=== PATIENT | male | born 1940 | race Caucasian/White ===

== ENCOUNTER 2016-08-26 12:07 | Emergency (ER) | payer MEDICARE, MEDICAID ==
[2016-08-26 12:27] VITALS: BP 143/73
--- NOTE | 2016-08-26 12:38 | EDM.PDOC ---
ED HPI LOWER BACK PAIN/INJURY - General Chief Complaint: Back Pain or Injury Stated Complaint: BACK PAIN Time Seen by Provider: 08/26/16 12:33 Source of Information: Reports: Patient, Other (care provider( [facility]) History Limitations: Reports: No limitations - History of Present Illness INITIAL COMMENTS - FREE TEXT/NARRATIVE: 76-year-old male who currently is a resident at one of the able [facility] in [place] is back to the hospital because of complaints of persistent low back pain since last evening no noted falls although he has an abrasion that is at least 10 days old on his lower back. Pain seems to be worse with standing and walking. He could have fallen which may not have been witnessed. No history of renal colic. History is difficult to obtain of course because he is mentally handicapped. He reports that he is in pain even lying still in bed. Therefore the question of renal colic exists. Her pain seems to be much worse with trying to sit up or move suggesting a muscular skeletal source. Symptom Onset Date: 08/25/16 Symptom Onset Time: 18:00 Timing/Duration: Reports: Sudden onset Location: Reports: lower Quality: Reports: Ache, Throbbing, Other Severity: moderate (Constant pain) Place of Occurrence: home Improves with: Reports: Rest, Other (Tylenol seemed to help a little bit last night and again this morning) Worsens with: Reports: Other, Movement (Can hardly stand for any significant length of time due to increased pain.) Context: Denies: lifting, bending, fall, MVC, trauma, chronic pain/injury, sports injury, other Associated Symptoms: Reports: Difficulty walking, Problems urinating (Has chronic urinary frequency and occasional urinary tract infections.) Treatments [employer]: Reports: Acetaminophen - Related Data Allergies/ADRs: Allergies Allergy/AdvReac Type Severity Reaction Status Date / Time No Known Allergies Allergy Verified 08/26/16 12:31 Home Meds: Home Meds Aspirin 325 mg PO DAILY 04/05/16 [History] Cholecalciferol (Vitamin D3) [Vitamin D3] 2 tab PO DAILY 04/05/16 [History] Donepezil [Aricept] 10 mg PO BEDTIME 04/05/16 [History] Famotidine 20 mg PO DAILY 04/05/16 [History] Fluticasone/Sod Chl/Sod Bicarb [Ticanase Kit] 1 spray NASBOTH BID 04/05/16 [ History] LORazepam [Ativan] 0.5 mg PO Q6H #15 tablet 04/05/16 [Rx] Lactase 3,000 unit PO BID 04/05/16 [History] Memantine HCl [Namenda Xr] 21 mg PO DAILY 04/05/16 [History] Multivit-Min/FA/Lycopene/Lut [Certavite Sr-Antioxidant Tab] 1 tab PO DAILY 04/05 [History] Simvastatin [Zocor] 10 mg PO BEDTIME 04/05/16 [History] SitaGLIPtin [Januvia] 50 mg PO DAILY 04/05/16 [History] Solifenacin Succinate [Vesicare] 10 mg PO DAILY 04/05/16 [History] Venlafaxine HCl [Venlafaxine ER] 75 mg PO DAILY 04/05/16 [History] Venlafaxine HCl [Venlafaxine ER] 150 mg PO DAILY 04/05/16 [History] risperiDONE 2 mg PO BID 04/05/16 [History] Meloxicam 15 mg PO DAILY #14 tablet 08/26/16 [Rx] Polyethylene Glycol 3350 [MiraLAX] 17 gm PO DAILY #1 container 08/26/16 [Rx] oxyCODONE HCl/Acetaminophen [Percocet 5-325 mg Tablet] 1 - 2 each PO Q4H PRN # 30 tablet 08/26/16 [Rx] Past Medical History Cardiovascular History: Reports: [place], Other (see below) Other Cardiovascular History: Low cardiac output, [place] 2004 Genitourinary History: Reports: Urinary incontinence Neurological History: Reports: Head trauma Other Neuro History: Head injury as a child Psychiatric History: Reports: Dementia, Psychosis Endocrine/Metabolic History: Reports: Diabetes, type II - Past Surgical History Cardiovascular Surgical History: Reports: Coronary artery bypass Other Cardiovascular Surgeries/Procedures: triple bypass 2003 Social & Family History - Tobacco Use Smoking Status *Q: Former Smoker Years of Tobacco use: 30 Packs/Tins Daily: 1 Used Tobacco, but Quit: Yes Month Tobacco Last Used: 4 years - Recreational Drug Use Recreational Drug Use: No - Living Situation & Occupation Occupation: disabled Social History Comment: Lives in a alf at able. ED ROS GENERAL - Review of Systems Review Of Systems: See Below Constitutional: Reports: no symptoms HEENT: Reports: No symptoms Respiratory: Reports: No Symptoms Cardiovascular: Reports: No symptoms Endocrine: Reports: no symptoms GI/Abdominal: Reports: Abdominal pain (Occasional problems with constipation but he had a normal bowel movement this morning) : Reports: frequency, other (Nocturia x3.) Musculoskeletal: Reports: back pain Skin: Reports: no symptoms (See history of present illness) Neurological: Reports: No Symptoms ED EXAM,LOWER BACK PAIN/INJURY - Physical Exam Exam: See Below Exam Limited By: No limitations General Appearance: alert, WD/WN, mild distress (Seems to be in quite a bit of discomfort and even hard to lie still suggestive of possible renal colic.) Throat/Mouth: Normal inspection, Normal lips, Normal oropharynx Head: atraumatic, other Neck: normal inspection, supple, non-tender, full range of motion Respiratory/Chest: no respiratory distress, lungs clear, normal breath sounds, no accessory muscle use Cardiovascular: normal peripheral pulses, regular rate, rhythm, no edema, no murmur GI/Abdominal: normal bowel sounds, soft, non tender, no organomegaly, no distention (Male) Exam: No hernia Extremities: normal inspection, normal range of motion, normal capillary refill Neurological: alert, normal mood/affect, normal dorsiflexion, CN II-XII intact, normal plantar flexion Psychiatric: normal affect, normal mood Skin Exam: Warm, Dry, Intact, Normal color, No rash Course - Vital Signs Last Recorded V/S: Last Vital Signs Temp 36.4 C 08/26/16 12:25 Pulse 65 08/26/16 12:25 Resp 24 H 08/26/16 12:25 BP 143/73 H 08/26/16 12:25 Pulse Ox 99 08/26/16 12:25 - Orders/Labs/Meds Orders: Active Orders 24 hr Category Date Time Status Abdomen Pelvis wo Cont [CT] Stat Exams 08/26/16 12:34 Taken Lumbar Spine wo Cont [CT] Stat Exams 08/26/16 12:34 Taken Labs: Laboratory Tests 08/26/16 08/26/16 08/26/16 Range/Units 13:55 14:00 14:00 WBC 7.27 (4.23-9.07) K/mm3 RBC 4.33 L (4.63-6.08) M/mm3 Hgb 14.5 (13.7-17.5) gm/L Hct 43.4 (40.1-51.0) % MCV 100.2 H (79.0-92.2) fl MCH 33.5 H (25.7-32.2) pg MCHC 33.4 (32.2-35.5) g/dl RDW Std Deviation 50.6 H (35.1-43.9) fL Plt Count 169 (163-337) K/mm3 MPV 11.4 (9.4-12.3) fl Neutrophils % (Manual) 78 H (40-60) % Band Neutrophils % 1 (0-10) % Lymphocytes % (Manual) 12 L (20-40) % Atypical Lymphs % 0 % Monocytes % (Manual) 7 (2-10) % Eosinophils % (Manual) 2 (0.8-7.0) % Basophils % (Manual) 0 L (0.2-1.2) Platelet Estimate Adequate Poikilocytosis 1+ slight Anisocytosis 1+ slight Macrocytosis 1+ slight Ovalocytes 1+ slight RBC Morph Comment Not Reportable ESR 11 (0-15) mm/hr Sodium (136-145) mEq/L Potassium (3.5-5.1) mEq/L Chloride (98-107) mEq/L Carbon Dioxide (21-32) mEq/L Anion Gap (5-15) BUN (7-18) mg/dL Creatinine (0.7-1.3) mg/dL Est Cr Clr Drug Dosing mL/min Estimated GFR (MDRD) (>60) mL/min BUN/Creatinine Ratio (14-18) Glucose (83-115) mg/dL Calcium (8.5-10.1) mg/dL Total Bilirubin (0.2-1.0) mg/dL AST (15-37) U/L ALT (16-63) U/L Alkaline Phosphatase (46-116) U/L C-Reactive Protein (<1.0) mg/dL Total Protein (6.4-8.2) g/dl Albumin (3.4-5.0) g/dl Globulin gm/dL Albumin/Globulin Ratio (1-2) PSA Screen (0.0-4.0) ng/mL Urine Color Yellow (Yellow) Urine Appearance Clear (Clear) Urine pH 7.0 (5.0-8.0) Ur Specific [place] 1.025 (1.005-1.030) Urine Protein Negative (Negative) Urine Glucose (UA) Negative (Negative) Urine Ketones 1+ H (Negative) Urine Occult Blood Negative (Negative) Urine Nitrite Negative (Negative) Urine Bilirubin Negative (Negative) Urine Urobilinogen 0.2 (0.2-1.0) Ur Leukocyte Esterase Negative (Negative) Urine RBC Not seen (0-5) /hpf Urine WBC 0-5 (0-5) /hpf Ur Epithelial Cells Not seen (0-5) /hpf Urine Bacteria Not seen (FEW) /hpf Urine Mucus Not seen (FEW) /hpf 08/26/16 08/26/16 Range/Units 14:00 14:00 WBC (4.23-9.07) K/mm3 RBC (4.63-6.08) M/mm3 Hgb (13.7-17.5) gm/L Hct (40.1-51.0) % MCV (79.0-92.2) fl MCH (25.7-32.2) pg MCHC (32.2-35.5) g/dl RDW Std Deviation (35.1-43.9) fL Plt Count (163-337) K/mm3 MPV (9.4-12.3) fl Neutrophils % (Manual) (40-60) % Band Neutrophils % (0-10) % Lymphocytes % (Manual) (20-40) % Atypical Lymphs % % Monocytes % (Manual) (2-10) % Eosinophils % (Manual) (0.8-7.0) % Basophils % (Manual) (0.2-1.2) Platelet Estimate Poikilocytosis Anisocytosis Macrocytosis Ovalocytes RBC Morph Comment ESR (0-15) mm/hr Sodium 137 (136-145) mEq/L Potassium 5.6 H (3.5-5.1) mEq/L Chloride 102 (98-107) mEq/L Carbon Dioxide 27 (21-32) mEq/L Anion Gap 13.6 (5-15) BUN 20 H (7-18) mg/dL Creatinine 1.2 (0.7-1.3) mg/dL Est Cr Clr Drug Dosing 44.84 mL/min Estimated GFR (MDRD) 59 (>60) mL/min BUN/Creatinine Ratio 16.7 (14-18) Glucose 120 H (83-115) mg/dL Calcium 8.9 (8.5-10.1) mg/dL Total Bilirubin 0.3 (0.2-1.0) mg/dL AST 22 (15-37) U/L ALT 30 (16-63) U/L Alkaline Phosphatase 82 (46-116) U/L C-Reactive Protein < 0.2 (<1.0) mg/dL Total Protein 6.6 (6.4-8.2) g/dl Albumin 3.3 L (3.4-5.0) g/dl Globulin 3.3 gm/dL Albumin/Globulin Ratio 1.0 (1-2) PSA Screen 4.7 H (0.0-4.0) ng/mL Urine Color (Yellow) Urine Appearance (Clear) Urine pH (5.0-8.0) Ur Specific [place] (1.005-1.030) Urine Protein (Negative) Urine Glucose (UA) (Negative) Urine Ketones (Negative) Urine Occult Blood (Negative) Urine Nitrite (Negative) Urine Bilirubin (Negative) Urine Urobilinogen (0.2-1.0) Ur Leukocyte Esterase (Negative) Urine RBC (0-5) /hpf Urine WBC (0-5) /hpf Ur Epithelial Cells (0-5) /hpf Urine Bacteria (FEW) /hpf Urine Mucus (FEW) /hpf Meds: Medications Discontinued Medications Generic Name Dose Route Start Last Admin Trade Name Kamini PRN Reason Stop Dose Admin Ibuprofen 600 mg 08/26/16 13:19 08/26/16 13:36 Motrin PO 08/26/16 13:20 600 mg ONETIME ONE Administration Oxycodone/Acetaminophen 1 tab 08/26/16 13:19 08/26/16 13:36 Percocet 325-5 Mg PO 08/26/16 13:20 1 tab ONETIME ONE Administration - Radiology Interpretation Free Text/Narrative:: 76-year-old male presents the ED with his care provider. He is resides in a able care center or alf because he is mentally handicapped. He started to complain of low back pain primarily on the left side last evening. The was given Tylenol which seemed to ease it. Still having pain this morning and finding it difficult to stand erect or walk for any length of time. Wants to sit right away. No noted falls but he could have had a fall that could have been unwitnessed. On examination he has a healing abrasion over his right lower back adjacent to lumbar 4 vertebra spinous process little to the left side of the midline. He seems to be quite uncomfortable even at rest. This raises some concern of a possible kidney stone. History is difficult to obtain because of his mentally handicapped status. Benign abdominal exam. Plan urinalysis CT abdomen and pelvis per renal protocol and lumbar spine CT. Facial be given a Percocet 5 325 mg tablet per ora and Motrin 600 mg tablet per ora. - Re-Assessments/Exams Free Text/Narrative Re-Assessment/Exam: 08/26/16 13:20 skin of the abdomen and pelvis has been completed. Liver appears normal gallbladder is absent. Pancreas is somewhat atrophic. Both kidneys are are equal 3. There is a stone within the right renal parenchyma. There is no signs of stones in the ureters. There are stones in the pelvis that appear to be in the prostate. Prostate is moderately enlarged greater than 5 cm. He likely is experiencing significant symptoms due to benign prostatic hypertrophy. He is advanced atherosclerosis of the distal aorta and particularly at the bifurcation. CT of the lumbar spine reveals advanced ostial arthritic changes with [id number] at lumbar 2-3. There is also sclerotic density within the lumbar 2-3 vertebra. Bones are very osteopenic as well. I suspect that by the looks of his aorta may well have claudication symptoms in his lower extremities at times. He does have stool scattered throughout the colon with diverticula with no signs of acute diverticulitis. 08/26/16 13:36 [facility] radiologist calls and has identified which she believes to be a soft tissue density at the lumbar 34 disc space of unclear origin. Its may represent a large disc herniation or soft tissue mass or hematoma. At L5 the intervertebral disc space narrowing at L2-3 and multiple erosions in the inferior endplate of L2 and superior endplate of L3 which are quite apparent. Differential includes disc discitis osteomyelitis versus degenerative disc disease she recommends an MRI be done on a semiurgent basis to further look at this area. Therefore going to have routine laboratory data including a PSA sedimentation rate and CRP. Plan will be to treat his pain over the weekend and have an MRI done on Sunday persistent pneumonia Fausto today. 08/26/16 15:01 Maria C to report a white count of 7.27 with 70% neutrophils 1% bands. Hemoglobin is 14.5 hematocrit is 43.4. Platelets 169,000. MCV is elevated at 100.2. Therefore instead of B12 and folic acid levels assessed. Chemistry shows sodium of 137 potassium is elevated at 5.6. Anion gap is 13.6 BUN is 20 EGFR is 59 creatinine is 1.2. PSA is elevated at 4.7. Sedimentation rate is pending. There is no reason for his potassium to be elevated with normal renal function and he's not on a potassium supplement. Therefore I think it needs to be repeated before acting upon mild hyperkalemia.. Will have Dr. Sinha repeat it next week. 08/26/16 16:14 ESR is 11. Departure - Departure Time of Disposition: 14:30 Disposition: Home, Self-Care 01 Condition: poor Clinical Impression: Acute lumbar back pain Qualifiers: Back pain laterality: unspecified Sciatica presence: without sciatica Qualified Code(s): M54.5 - Low back pain Prescriptions: Meloxicam 15 mg PO DAILY #14 tablet Polyethylene Glycol 3350 [MiraLAX] 17 gm PO DAILY #1 container oxyCODONE HCl/Acetaminophen [Percocet 5-325 mg Tablet] 1 - 2 each PO Q4H PRN # 30 tablet PRN Reason: pain relief. Instructions: Back Pain, Adult, [id number] Referrals: Taiwo Sinha MD [Primary Care Provider] - Forms: ED Department Discharge Additional Instructions: Evaluation in the region today due to new onset of severe lower back pain last night thinking extremely difficult to walk today. No noted falls or injuries. CT scan of the abdomen was carried out he did not reveal any signs of kidney stones or abnormalities within the abdomen. He does reveal a very large prostate gland greater than 5 cm in size which likely should be followed up by a urologist. 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 However it also suggests a soft tissue mass at the lumbar 34 vertebra that is extending towards the spinal cord. It is unclear what this is it could be a large herniated disc but cannot be defined on CT exam. Therefore MRI of the lumbar spine needs to be carried out and tentatively he will be booked for Sunday next week. The radiology department is to call to arrange this appointment Sunday. In the meantime suggest meloxicam 15 mg once daily to relieve pain and inflammation. Percocet tabs 5 325 one or 2 every 4-6 hours needed for pain relief. MiraLax powder 17 g once daily while on pain pills to prevent constipation from occurring. Suggest trying to arrange followup with Dr. Anderson on Sunday or Sunday this next week after the MRI has been completed so that a firm diagnosis can be made and a definitive treatment plan made. - My Orders Last 24 Hours: My Active Orders 08/26/16 12:34 Abdomen Pelvis wo Cont [CT] Stat Lumbar Spine wo Cont [CT] Stat - Assessment/Plan Last 24 Hours: My Active Orders 08/26/16 12:34 Abdomen Pelvis wo Cont [CT] Stat Lumbar Spine wo Cont [CT] Stat
[2016-08-26] MEDS ORDERED: Ibuprofen 600 MG Tab PO ONE (13:19)
[2016-08-26] MEDS ORDERED: Acetaminophen/oxyCODONE 325-5 MG Tab PO ONE (13:19)
--- NOTE | 2016-08-28 07:59 | CT ---
CT abdomen and pelvis Technique: Multiple axial sections were obtained from above the kidneys inferiorly through the pubic symphysis. Intravenous and oral contrast was not utilized. Study has been performed as a ureteral stone protocol. Comparison: Previous CT abdomen and pelvis exam of 12/31/09. Findings: Visualized lung bases show mild fibrosis and scarring. Heart is enlarged. Visualized portions of the liver have an unremarkable noncontrast appearance. Small hiatal hernia is noted. Spleen size is normal. Adrenal glands show no nodule. No discrete abnormality appreciated within the pancreas. Aorta shows diffuse atherosclerotic change which is also noted within the branch vessels. Iliac vessels also shows atherosclerotic calcification. Anterior abdominal wall graft is noted. Small calcification noted within the right kidney compatible with small nonobstructing stone. No other abnormal calcifications are seen within the kidneys. No ureteral dilatation or ureteral stone is seen. Mild diverticulosis without inflammatory change seen within the sigmoid colon. Prostate gland is enlarged and contains calcifications. Prostate gland has increased in size from previous exam. Degenerative change noted within the spine. Soft tissue density noted within the central canal at L3-L4, this will be further described on CT lumbar spine exam. Impression: 1. Multiple findings as noted above. Nothing acute is appreciated. Agree with preliminary report issued by [employer] (preliminary [facility] report generated on 08/26/16, 2:36 PM Central Time) Diagnostic code #3
--- NOTE | 2016-08-28 07:59 | CT ---
CT lumbar spine Technique: Multiple axial sections were obtained from the top of T10 inferiorly through the L5-S1 disc. Reconstructed sagittal and coronal images were reviewed. Comparison: No previous lumbar spine imaging is available. Findings: L2-L3: Severe disc space narrowing with vacuum phenomenon is seen. Endplate irregularity is seen with surrounding sclerosis which is likely due to prominent degenerative change or old discitis. Very slight circumferential disc bulge is seen. Posterior disc has a planar margin. No central canal stenosis is noted. Neural foramina on the left side is slightly narrowed. Right neural foramen is patent where the nerve root exits. L3-L4: Mild posterior disc space narrowing is seen. Circumferential disc bulge is present. Soft tissue density is seen within the central canal inferior to this disc level most likely due to large disc herniation. Neural foramina appear to be patent where the nerve root exits. L4-L5: Disc space narrowing and vacuum phenomena noted. Degenerative apophyseal change is seen. No central canal stenosis is seen. Severe degenerative apophyseal change noted. Right-sided neural foraminal stenosis is seen. Left neural foramen is patent where the nerve root exits. L5-S1: Severe disc space narrowing with vacuum phenomenon noted. Mild degenerative apophyseal change is seen. Neural foramina are patent where the nerve roots exit. No central canal stenosis is seen. Nothing acute is identified. Impression: 1. Soft tissue density at L3-L4 most likely due to large disc herniation. MRI could be obtained to confirm. 2. Degenerative change as noted above. Agree with preliminary report issued by [employer] (preliminary [facility] report generated on 08/26/16, 2:30 PM Central Time) Diagnostic code #3
== END 2016-08-26 14:45 | disposition home or self-care (01) ==
LOC: JD.ED 12:07
DX: M54.5 Low back pain (principal); I25.2 Old myocardial infarction; E11.9 Type 2 diabetes mellitus without complications; Z87.891 Personal history of nicotine dependence; Z79.82 Long term (current) use of aspirin; Z79.899 Other long term (current) drug therapy; Z95.1 Presence of aortocoronary bypass graft
CPT/HCPCS: 36415; 72131; 74176; 80053; 81001; 85025; 85652; 86140; 99284; A9270; G0103

== ENCOUNTER 2016-08-31 17:34 | Emergency (ER) | payer MEDICARE, MEDICAID ==
[2016-08-31] MEDS ORDERED: Acetaminophen/oxyCODONE 325-5 MG Tab PO ONE (18:45)
--- NOTE | 2016-08-31 18:47 | EDM.PDOC ---
ED HPI GENERAL MEDICAL PROBLEM - General Chief Complaint: General Stated Complaint: LEG SWELLING Time Seen by Provider: 08/31/16 18:27 Source of Information: Reports: Other (Able care worker) History Limitations: Reports: No limitations - History of Present Illness INITIAL COMMENTS - FREE TEXT/NARRATIVE: Patient presents to the ER for a ultrasound of the lower extremities. Patient was seen by his primary care provider for a preop to have an MRI under anesthesia tomorrow. MRI planned is of the of the lumbar spine. Patient has been experiencing significant low back pain and a decline in function recently due to low back pain. Preop revealed a d-dimer of 0.84 thus he was sent to the ER for bilateral ultrasound of the legs rule out DVT. Preop also demonstrated mild swelling of the left lower extremity. Pending the results in the ER he may be cleared for MRI with anesthesia tomorrow. Patient is developmentally disabled and unable to provide any history. An able care worker is present and reports that within the last week he has gone from ambulating on his own to being a two person transfer. - Related Data Allergies Allergy/AdvReac Type Severity Reaction Status Date / Time No Known Allergies Allergy Verified 08/31/16 17:50 Home Meds: Home Meds Aspirin 325 mg PO DAILY 04/05/16 [History] Cholecalciferol (Vitamin D3) [Vitamin D3] 2 tab PO DAILY 04/05/16 [History] Donepezil [Aricept] 10 mg PO BEDTIME 04/05/16 [History] Famotidine 20 mg PO DAILY 04/05/16 [History] Fluticasone/Sod Chl/Sod Bicarb [Ticanase Kit] 1 spray NASBOTH BID 04/05/16 [ History] LORazepam [Ativan] 0.5 mg PO Q6H #15 tablet 04/05/16 [Rx] Lactase 3,000 unit PO BID 04/05/16 [History] Memantine HCl [Namenda Xr] 21 mg PO DAILY 04/05/16 [History] Multivit-Min/FA/Lycopene/Lut [Certavite Sr-Antioxidant Tab] 1 tab PO DAILY 04/05 [History] Simvastatin [Zocor] 10 mg PO BEDTIME 04/05/16 [History] SitaGLIPtin [Januvia] 50 mg PO DAILY 04/05/16 [History] Solifenacin Succinate [Vesicare] 10 mg PO DAILY 04/05/16 [History] Venlafaxine HCl [Venlafaxine ER] 75 mg PO DAILY 04/05/16 [History] Venlafaxine HCl [Venlafaxine ER] 150 mg PO DAILY 04/05/16 [History] risperiDONE 2 mg PO BID 04/05/16 [History] Meloxicam 15 mg PO DAILY #14 tablet 08/26/16 [Rx] Polyethylene Glycol 3350 [MiraLAX] 17 gm PO DAILY #1 container 08/26/16 [Rx] oxyCODONE HCl/Acetaminophen [Percocet 5-325 mg Tablet] 1 - 2 each PO Q4H PRN # 30 tablet 08/26/16 [Rx] Past Medical History Cardiovascular History: Reports: [place], Other (see below) Other Cardiovascular History: Low cardiac output, [place] 2004 Genitourinary History: Reports: Urinary incontinence Neurological History: Reports: Head trauma Other Neuro History: Head injury as a child Psychiatric History: Reports: Dementia, Psychosis Endocrine/Metabolic History: Reports: Diabetes, type II - Past Surgical History Cardiovascular Surgical History: Reports: Coronary artery bypass Other Cardiovascular Surgeries/Procedures: triple bypass 2003 Social & Family History - Tobacco Use Smoking Status *Q: Former Smoker Years of Tobacco use: 30 Packs/Tins Daily: 1 Used Tobacco, but Quit: Yes Month Tobacco Last Used: 4 years Second Hand Smoke Exposure: No - Caffeine Use Caffeine Use: Reports: Coffee, Soda - Recreational Drug Use Recreational Drug Use: No - Living Situation & Occupation Occupation: disabled ED ROS GENERAL - Review of Systems Review Of Systems: See Below Musculoskeletal: Reports: back pain, leg pain ED EXAM, GENERAL - Physical Exam Exam: See Below Exam Limited By: Physical impairment General Appearance: alert, mild distress, thin Respiratory/Chest: no respiratory distress Cardiovascular: normal peripheral pulses, regular rate, rhythm Peripheral Pulses: 1+: posterior tibial (L), posterior tibial (R), dorsalis pedis (L), dorsalis pedis (R) Extremities: normal inspection, pedal edema (left trace), other (left calf 36 cm ; right calf 36 cm). No: Chanelle's Sign Neurological: alert Skin Exam: Warm, Dry, Normal color Course - Vital Signs Last Recorded V/S: Last Vital Signs Temp 36.2 C 08/31/16 17:50 Pulse 57 L 08/31/16 17:50 Resp 16 08/31/16 17:50 BP 131/58 L 08/31/16 17:50 Pulse Ox 94 L 08/31/16 17:50 - Orders/Labs/Meds Meds: Medications Discontinued Medications Generic Name Dose Route Start Last Admin Trade Name Kamini PRN Reason Stop Dose Admin Oxycodone/Acetaminophen 1.5 tab 08/31/16 18:45 08/31/16 18:58 Percocet 325-5 Mg PO 08/31/16 18:46 1.5 tab ONETIME ONE Administration - Radiology Interpretation Free Text/Narrative:: Bilateral venous ultrasound of the lower extremities impression per Dr. Pruitt: 1. No findings are seen to indicate the venous thorombosis within either the right or the left lower extremity. - Re-Assessments/Exams Free Text/Narrative Re-Assessment/Exam: 08/31/16 21:17 Labs from [place]: D-dimer elevated at 0.84 WBC 4.9, hemoglobin 14.9 and platelets 185. Sodium 139, potassium 5.0, chloride 103, anion gap 10, glucose 74, creatinine 1.39 Chest x-ray two-view impression: Scarring versus atelectasis in the right lung base with no evidence of pneumonia I let the patient go around 20:20. Both the patient and the care provider were anxious to leave. Preliminary report from motorsports technician demonstrated no DVT. I call Kimberly able care worker, at [phone] at 20:54 with the final report. Negative for DVT. Departure - Departure Time of Disposition: 20:20 Disposition: Home, Self-Care 01 Condition: fair Clinical Impression: Acute lumbar back pain Qualifiers: Back pain laterality: unspecified Sciatica presence: without sciatica Qualified Code(s): M54.5 - Low back pain Instructions: Back Pain, Adult Referrals: Taiwo Sinha MD [Primary Care Provider] - Forms: ED Department Discharge Additional Instructions: Continue with current plan of care. Will call with radiology report as soon as its available. Phone number for the ER small package and bundle sorter clerk is [phone] (if you do not hear from us, please allow us 1-2 hours for the report). Carmina Comer PA-C provided care. Please return to the ER for any problems, questions of concerns.
--- NOTE | 2016-08-31 20:43 | US ---
Bilateral lower extremity deep venous ultrasound: Duplex and color flow imaging was obtained of the right and left common femoral, proximal greater saphenous, superficial femoral, popliteal, posterior tibial and peroneal veins. Normal compression and phasic flow is seen. Augmentation at the calf veins not optimal but this is felt to be incidental. Augmentation above the knee is normal within both extremities. Impression: 1. No findings are seen to indicate the venous thrombosis within either the right or left lower extremity. Diagnostic code #1
[2016-08-31 21:33] VITALS: BP 113/75
== END 2016-08-31 20:30 | disposition home or self-care (01) ==
LOC: JD.ED 17:34
DX: R79.1 Abnormal coagulation profile (principal); M54.5 Low back pain; F03.90 Unspecified dementia, unspecified severity, without behavioral disturbance, psychotic disturbance, mood disturbance, and anxiety; E11.9 Type 2 diabetes mellitus without complications; R32 Unspecified urinary incontinence; I25.2 Old myocardial infarction; Z95.1 Presence of aortocoronary bypass graft; Z87.891 Personal history of nicotine dependence; Z79.82 Long term (current) use of aspirin; Z79.899 Other long term (current) drug therapy
CPT/HCPCS: 93970; A9270; 99283; 99284-25

== ENCOUNTER 2016-12-17 17:09 | Emergency (ER) | payer MEDICARE, MEDICAID ==
[2016-12-17] MEDS ORDERED: Sodium Chloride 0.9% 10 ML Syringe FLUSH PRN (17:43)
[2016-12-17] MEDS ORDERED: Sodium Chloride 0.9% 500 ML IV ONE (17:43)
--- NOTE | 2016-12-17 18:11 | CR ---
Chest: Portable view of the chest was obtained. Comparison: Previous chest x-ray of 04/05/16. Heart is mildly enlarged. Previous sternotomy is noted. Upper mediastinum is within normal limits. Slight discoid atelectasis is seen within the left mid and lower lung. Nodular density appears to be present within the left base behind left heart measuring 1.5 cm. Lungs otherwise are clear. Bony structures are grossly intact. Impression: 1. Questionable nodule within the left lung base behind the left heart. This is not seen on prior study and noncontrast chest CT recommended to further evaluate. 2. Mild cardiomegaly. 3. Mild left sided atelectasis. Diagnostic code #9
--- NOTE | 2016-12-17 18:16 | EDM.PDOC ---
ED HPI GENERAL MEDICAL PROBLEM - General Chief Complaint: Cardiovascular Problem Stated Complaint: LOW BLOOD PRESSURE/CHEST CONGESTION Time Seen by Provider: 12/17/16 17:20 Source of Information: Reports: Patient, RN Notes Reviewed - History of Present Illness INITIAL COMMENTS - FREE TEXT/NARRATIVE: 76-year-old male has been brought in by nurse with concern of cough that began yesterday, worsening today. So been having low blood pressure readings today. Had some mild generalized weakness and dizziness. He was having increased back pain yesterday but at this time the back is okay. He has not had obvious fever or chills. No abdominal pain nausea or vomiting. He also does deny chest discomfort at this time. His cough has been primarily nonproductive. He does have history of chronic anemia. Treatments SENIOR AUDITOR: Reports: Acetaminophen - Related Data Allergies Allergy/AdvReac Type Severity Reaction Status Date / Time No Known Allergies Allergy Verified 12/17/16 17:21 Home Meds: Home Meds Aspirin 325 mg PO DAILY 04/05/16 [History] Cholecalciferol (Vitamin D3) [Vitamin D3] 2 tab PO DAILY 04/05/16 [History] Donepezil [Aricept] 10 mg PO BEDTIME 04/05/16 [History] Famotidine 20 mg PO DAILY 04/05/16 [History] Fluticasone/Sod Chl/Sod Bicarb [Ticanase Kit] 1 spray NASBOTH BID 04/05/16 [ History] Lactase 1.5 tab PO BID 04/05/16 [History] Memantine HCl [Namenda Xr] 21 mg PO DAILY 04/05/16 [History] Multivit-Min/FA/Lycopene/Lut [Certavite Sr-Antioxidant Tab] 1 tab PO DAILY 04/05 [History] Simvastatin [Zocor] 10 mg PO BEDTIME 04/05/16 [History] SitaGLIPtin [Januvia] 50 mg PO DAILY 04/05/16 [History] Solifenacin Succinate [Vesicare] 10 mg PO DAILY 04/05/16 [History] Venlafaxine HCl [Venlafaxine ER] 75 mg PO DAILY 04/05/16 [History] Venlafaxine HCl [Venlafaxine ER] 150 mg PO DAILY 04/05/16 [History] risperiDONE 2 mg PO BID 04/05/16 [History] Meloxicam 15 mg PO DAILY #14 tablet 08/26/16 [Rx] Polyethylene Glycol 3350 [MiraLAX] 17 gm PO DAILY #1 container 08/26/16 [Rx] Acyclovir [Zovirax 5% Oint] 1 dose TOP 5XDAY PRN 12/17/16 [History] Divalproex Sodium [Divalproex Sodium ER] 2 tab PO BEDTIME 12/17/16 [History] LORazepam [Ativan] 0.5 mg PO ASDIRECTED PRN 12/17/16 [History] oxyCODONE HCl/Acetaminophen [Percocet 5-325 mg Tablet] 1 each PO Q4H PRN [History] Past Medical History Cardiovascular History: Reports: Bypass, [place] Other Cardiovascular History: Low cardiac output, [place] 2004 Genitourinary History: Reports: Urinary Incontinence Neurological History: Reports: Head Trauma Other Neuro History: Head injury as a child Psychiatric History: Reports: Dementia, Psychosis Endocrine/Metabolic History: Reports: Diabetes, Type II - Past Surgical History Cardiovascular Surgical History: Reports: Coronary Artery Bypass Social & Family History - Tobacco Use Smoking Status *Q: Former Smoker Years of Tobacco use: 30 Packs/Tins Daily: 1 Used Tobacco, but Quit: Yes Month Tobacco Last Used: years ago Second Hand Smoke Exposure: No - Caffeine Use Caffeine Use: Reports: Soda - Recreational Drug Use Recreational Drug Use: No - Living Situation & Occupation Occupation: Disabled ED ROS GENERAL - Review of Systems Review Of Systems: See Below Constitutional: Denies: Fever, Chills, Diaphoresis HEENT: Denies: Sinus Problem, Throat Pain Respiratory: Reports: Cough. Denies: Shortness of Breath, Pleuritic Chest Pain , Sputum Cardiovascular: Denies: Chest Pain GI/Abdominal: Denies: Abdominal Pain, Nausea, Vomiting Musculoskeletal: Reports: Back Pain. Denies: Shoulder Pain Skin: Reports: No Symptoms Neurological: Denies: Trouble Speaking ED EXAM, GENERAL - Physical Exam Exam: See Below General Appearance: Alert, No Apparent Distress Throat/Mouth: Normal Inspection, Other Head: Atraumatic (Oral mucosa is somewhat dry). No: Facial Swelling Neck: Supple, Full Range of Motion Respiratory/Chest: No Respiratory Distress, Lungs Clear, Normal Breath Sounds Cardiovascular: Regular Rate, Rhythm GI/Abdominal: Soft, Non-Tender. No: Guarding Rectal (Males) Exam: Heme + Stool (Brown stool, no mass or unusual tenderness palpable, however stool was moderately heme positive) Extremities: No: Pedal Edema, Leg Pain Neurological: Alert, No Motor/Sensory Deficits Skin Exam: Warm, Dry, Normal Color Course - Vital Signs Last Recorded V/S: Last Vital Signs Temp 97.4 F 12/17/16 17:17 Pulse 70 12/17/16 17:17 Resp 16 12/17/16 17:17 BP 100/55 L 12/17/16 17:17 Pulse Ox 98 12/17/16 17:17 - Orders/Labs/Meds Orders: Active Orders 24 hr Category Date Time Status Peripheral IV Care [RC] . DIRECTED Care 12/17/16 17:43 Active Sodium Chloride 0.9% [Saline Flush] Med 12/17/16 17:43 Active 10 ml FLUSH ASDIRECTED PRN Peripheral IV Insertion Adult [OM.PC] Stat Oth 12/17/16 17:43 Ordered Medication Orders Sodium Chloride (Saline Flush) 10 ml FLUSH ASDIRECTED PRN PRN Reason: Keep Vein Open Labs: Laboratory Tests 12/17/16 12/17/16 Range/Units 18:13 18:13 WBC 8.93 (4.23-9.07) K/mm3 RBC 2.77 L (4.63-6.08) M/mm3 Hgb 8.9 L (13.7-17.5) gm/L Hct 27.5 L (40.1-51.0) % MCV 99.3 H (79.0-92.2) fl MCH 32.1 (25.7-32.2) pg MCHC 32.4 (32.2-35.5) g/dl RDW Std Deviation 47.7 H (35.1-43.9) fL Plt Count 240 (163-337) K/mm3 MPV 10.4 (9.4-12.3) fl Neut % (Auto) 73.1 H (34.0-67.9) % Lymph % (Auto) 9.4 L (21.8-53.1) % Ocean % (Auto) 16.3 H (5.3-12.2) % Eos % (Auto) 0.8 (0.8-7.0) Baso % (Auto) 0.3 (0.1-1.2) % Neut # (Auto) 6.52 H (1.78-5.38) K/mm3 Lymph # (Auto) 0.84 L (1.32-3.57) K/mm3 Ocean # (Auto) 1.46 H (0.30-0.82) K/mm3 Eos # (Auto) 0.07 (0.04-0.54) K/mm3 Baso # (Auto) 0.03 (0.01-0.08) K/mm3 Manual Slide Review Abnormal smear Sodium 132 L (136-145) mEq/L Potassium 4.6 (3.5-5.1) mEq/L Chloride 99 (98-107) mEq/L Carbon Dioxide 25 (21-32) mEq/L Anion Gap 12.6 (5-15) BUN 35 H (7-18) mg/dL Creatinine 1.9 H (0.7-1.3) mg/dL Est Cr Clr Drug Dosing 28.32 mL/min Estimated GFR (MDRD) 35 (>60) mL/min BUN/Creatinine Ratio 18.4 H (14-18) Glucose 115 (83-115) mg/dL Calcium 8.5 (8.5-10.1) mg/dL Total Bilirubin 0.3 (0.2-1.0) mg/dL AST 56 H (15-37) U/L ALT 21 (16-63) U/L Alkaline Phosphatase 88 (46-116) U/L Total Protein 6.4 (6.4-8.2) g/dl Albumin 2.6 L (3.4-5.0) g/dl Globulin 3.8 gm/dL Albumin/Globulin Ratio 0.7 L (1-2) Meds: Medications Generic Name Dose Route Start Last Admin Trade Name Freq PRN Reason Stop Dose Admin Sodium Chloride 10 ml 12/17/16 17:43 Saline Flush FLUSH ASDIRECTED PRN Keep Vein Open Discontinued Medications Generic Name Dose Route Start Last Admin Trade Name Freq PRN Reason Stop Dose Admin Sodium Chloride 500 mls @ 999 mls/hr 12/17/16 17:43 12/17/16 18:20 Normal Saline IV 12/17/16 18:13 999 mls/hr .BOLUS ONE Administration - Re-Assessments/Exams Free Text/Narrative Re-Assessment/Exam: 12/17/16 19:57 Blood pressure improved to 105-110 systolic after 600 mL normal saline. Hemoglobin has come back relatively low at 8.9. Also on chest x-ray he does have a 1.5 cm nodule left base. There is no evidence for pneumonia. White blood count normal. On rectal exam stool was brown but moderately heme positive. The able nurse here with him this evening states that he is scheduled to see Dr. Enriquez, General Surgeon in about 4 days for GI work up. We did do orthostatics here a few minutes ago and he did not drop his blood pressure appreciably, heart rate increased from 70-82. There will not be a nurse present with him tonight but there will be staff present to monitor his condition and assist him with any need of standing or ambulating. Discharge instructions as documented. Departure - Departure Time of Disposition: 20:00 Disposition: Home, Self-Care 01 Condition: Serious Clinical Impression: Bronchitis, Heme positive stool Anemia Qualifiers: Anemia type: other cause Forms: ED Department Discharge Additional Instructions: Encourage fluids, rest, it is recommended he be up with assistance only to make sure he does okay standing or walking. Call Dr. Enriquez's office tomorrow morning to see if his appointment can be moved up to tomorr or Sunday if possible. Follow-up with Dr. Sinha Sunday if possible for recheck. Return to ED as needed. His chest x-ray does show a 1.5 cm nodule left lung base. Our Radiologist does recommend that he have a noncontrast chest CT sometime in the near future. - My Orders Last 24 Hours: My Active Orders 12/17/16 17:43 Peripheral IV Care [RC] . DIRECTED Sodium Chloride 0.9% [Saline Flush] 10 ml FLUSH ASDIRECTED PRN Peripheral IV Insertion Adult [OM.PC] Stat - Assessment/Plan Last 24 Hours: My Active Orders 12/17/16 17:43 Peripheral IV Care [RC] . DIRECTED Sodium Chloride 0.9% [Saline Flush] 10 ml FLUSH ASDIRECTED PRN Peripheral IV Insertion Adult [OM.PC] Stat
[2016-12-17 21:14] VITALS: BP 101/53
== END 2016-12-17 20:45 | disposition home or self-care (01) ==
LOC: JD.ED 17:09
DX: D64.9 Anemia, unspecified (principal); J40 Bronchitis, not specified as acute or chronic; R19.5 Other fecal abnormalities; E11.9 Type 2 diabetes mellitus without complications; I25.2 Old myocardial infarction; Z79.82 Long term (current) use of aspirin; Z79.899 Other long term (current) drug therapy; Z95.1 Presence of aortocoronary bypass graft; Z87.891 Personal history of nicotine dependence
CPT/HCPCS: 36415; 71010; 80053; 85025; 96360; 96361; 99284; J7040; J7050

== ENCOUNTER 2016-12-25 07:05 | Day surgery (SDC) | payer MEDICARE, MEDICAID ==
[~2016-12-25 07:05] MED LIST: Lactated Ringers 1,000 ML IV SCH; Lidocaine 1%/Sod Bicarbonate in NS 8.4% 1 ML Syringe IV PRN; Sodium Chloride 0.9% 10 ML Syringe FLUSH PRN
[2016-12-25] MEDS ORDERED: Propofol 200 MG/20 ML SDV ONE (07:23)
[2016-12-25] MEDS ORDERED: fentaNYL 100 MCG/2 ML SDV ONE (07:24)
--- NOTE | 2016-12-25 07:31 | PCM.PREANE ---
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 Information needed to complete this assessment was obtained from the chart, his brother, and his usability specialist from [facility]. - Review of Systems General: No Symptoms Pulmonary: Shortness of Breath (albuterol inhaler daily, just getting over bronchitis ), Cough Cardiovascular: No Symptoms Gastrointestinal: No symptoms Neurological: No Symptoms Other: Reports: Diabetes, Anxiety - Physical Assessment NPO Status Date: 12/24/16 NPO Status Time: 21:00 Pulse: 82 O2 Sat by Pulse Oximetry: 91 Respiratory Rate: 16 Blood Pressure: 125/57 Temperature: 36.1 C Height: 1.65 m Weight: 68.492 kg ASA Class: 3 Mental Status: Alert & Oriented x3 Airway Class: Mallampati = 2 Dentition: Reports: Normal Dentition, Dentures (upper and lower ) Thyro-Mental Finger Breadths: 3 Mouth Opening Finger Breadths: 3 ROM/Head Extension: Full Lungs: Clear to auscultation, Normal respiratory effort, Rhonchi (just getting over a bout with bronchitis ) Cardiovascular: Regular Rate, Regular Rhythm - Allergies Allergies/Adverse Reactions: Allergies Allergy/AdvReac Type Severity Reaction Status Date / Time No Known Allergies Allergy Verified 12/22/16 14:37 - Blood Blood Available: No Product(s) Available: None - Acknowledgements Anesthesia Type Planned: MAC Pt an Appropriate Candidate for the Planned Anesthesia: Yes Alternatives and Risks of Anesthesia Discussed w Pt/Guardian: Yes Pt/Guardian Understands and Agrees with Anesthesia Plan: Yes PreAnesthesia Questionnaire HEENT History: Reports: Allergic Rhinitis Cardiovascular History: Reports: Bypass, High Cholesterol, [place] Other Cardiovascular History: Low cardiac output, [place] 2004 Respiratory History: Reports: None Genitourinary History: Reports: Urinary Incontinence CARDING DOUBLER History: Reports: None Musculoskeletal History: Reports: Back Pain, Chronic Neurological History: Reports: Alzheimers Disease, Head Trauma Other Neuro History: Head injury as a child Psychiatric History: Reports: Dementia, Psychosis Endocrine/Metabolic History: Reports: Diabetes, Type II Hematologic History: Reports: Anemia Immunologic History: Reports: None Oncologic (Cancer) History: Reports: None Dermatologic History: Reports: None - Past Surgical History Head Surgeries/Procedures: Reports: None HEENT Surgical History: Reports: Tonsillectomy Cardiovascular Surgical History: Reports: Coronary Artery Bypass Other Cardiovascular Surgeries/Procedures: triple bypass 2004 Respiratory Surgical History: Reports: None GI Surgical History: Reports: Appendectomy Dermatological Surgical History: Reports: None - SUBSTANCE USE Smoking Status *Q: Former Smoker Second Hand Smoke Exposure: No Recreational Drug Use History: No - HOME MEDS Home Medications: Home Meds Cholecalciferol (Vitamin D3) [Vitamin D3] 2 tab PO DAILY 04/05/16 [History] Donepezil [Aricept] 10 mg PO BEDTIME 04/05/16 [History] Famotidine 20 mg PO DAILY 04/05/16 [History] Fluticasone/Sod Chl/Sod Bicarb [Ticanase Kit] 1 spray NASBOTH BID 04/05/16 [ History] Lactase 1.5 tab PO BID 04/05/16 [History] Memantine HCl [Namenda Xr] 21 mg PO DAILY 04/05/16 [History] Multivit-Min/FA/Lycopene/Lut [Certavite Sr-Antioxidant Tab] 1 tab PO DAILY 04/05 [History] Simvastatin [Zocor] 10 mg PO BEDTIME 04/05/16 [History] SitaGLIPtin [Januvia] 50 mg PO DAILY 04/05/16 [History] Solifenacin Succinate [Vesicare] 10 mg PO DAILY 04/05/16 [History] Venlafaxine HCl [Venlafaxine ER] 75 mg PO 1730 04/05/16 [History] Venlafaxine HCl [Venlafaxine ER] 150 mg PO DAILY 04/05/16 [History] risperiDONE 2 mg PO BID 04/05/16 [History] Acyclovir [Zovirax 5% Oint] 1 dose TOP 5XDAY PRN 12/17/16 [History] Divalproex Sodium [Divalproex Sodium ER] 2 tab PO BEDTIME 12/17/16 [History] LORazepam [Ativan] 0.5 mg PO ASDIRECTED PRN 12/17/16 [History] Albuterol [IJP: Albuterol] 2.5 mg INH Q4H PRN 12/22/16 [History] Carbamide Peroxide [Ear Drops] 5 - 10 drop EYEBOTH DAILY PRN 12/22/16 [History] Divalproex Sodium 250 mg PO DAILY 12/22/16 [History] Mupirocin Oint [Bactroban Oint] 1 applic TOP BID PRN 12/22/16 [History] Sodium Chloride/Sodium Bicarb [Nasa Mist Saline [place]] 1 spray NASBOTH DAILY PRN 12/22/16 [History] - CURRENT (IN HOUSE) MEDS Current Meds: Current Medications Lactated Ringer's (Ringers, Lactated) 1,000 mls @ 125 mls/hr IV ASDIRECTED KALIE Stop: 12/25/16 23:00 Lidocaine/Sodium Bicarbonate (Buffered Lidocaine 1% In Ns 8.4%) 0.25 ml IV ONETIME PRN PRN Reason: Prior to IV Start Stop: 12/25/16 18:00 Sodium Chloride (Saline Flush) 10 ml FLUSH ASDIRECTED PRN PRN Reason: Keep Vein Open Stop: 12/25/16 18:00 Discontinued Medications Fentanyl (Sublimaze) Confirm Administered Dose 100 mcg .ROUTE .STK-MED ONE Stop: 12/25/16 07:25 Propofol (Diprivan 20 Ml) Confirm Administered Dose 200 mg .ROUTE .STK-MED ONE Stop: 12/25/16 07:24
[2016-12-25] MEDS ORDERED: Lidocaine 1% 4 ML ONE (08:28)
--- NOTE | 2016-12-25 09:06 | PCM48HPAN ---
Post Anesthesia Note - EVALUATION WITHIN 48HRS OF ANESTHETIC Vital Signs in Normal Range: Yes Patient Participated in Evaluation: Yes Respiratory Function Stable: Yes Airway Patent: Yes Cardiovascular Function Stable: Yes Hydration Status Stable: Yes Pain Control Satisfactory: Yes Nausea and Vomiting Control Satisfactory: Yes Mental Status Recovered: Yes
[2016-12-25 09:26] VITALS: BP 128/63
--- NOTE | 2016-12-25 10:05 | PCM.OPNOTE ---
- General Post-Op/Procedure Note Date of Surgery/Procedure: 12/25/16 Operative Procedure(s): 1. Esophagogastroduodenoscopy with four-quadrant biopsy of a large prepyloric type III gastric ulcer. 2. Colonoscopy with piecemeal snare cautery polypectomy of a distal rectal sessile polyp, with fulguration of the polyp base. Findings: 1. Moderately large prepyloric gastric ulcer most likely the source of this patient's anemia 2. Sliding hiatal hernia 3. Uncomplicated internal hemorrhoids 4. Sessile, villous-like 3 cm distal rectal polyp, certainly can be associated with heme positive stools 5. Sigmoid diverticulosis 6. Poor colon prep Pre Op Diagnosis: Chronic anemia of unknown etiology Post-Op Diagnosis: 1. Sliding hiatal hernia, uncomplicated. 2. Moderately large prepyloric type III gastric ulcer. 3. Internal hemorrhoids uncomplicated. 4. Sessile rectal polyp. 5. Unconjugated sigmoid diverticulosis Anesthesia Technique: MAC, Moderate Sedation Primary Surgeon: En Enriquez Pathology: 1. Four-quadrant gastric ulcer biopsies 2. Piecemeal sessile rectal polypectomy specimens EBL in mLs: 1 Complications: None Condition: Good Free Text/Narrative:: Intake & Output 12/24/16 12/25/16 12/25/16 22:59 06:59 14:59 Intake Total 0 Balance 0 After adequate IV sedation and analgesia with monitoring the patient was placed on his left side. Through a bite block a lubricated upper Olympus endoscope was inserted into the esophagus and advanced under direct vision to the stomach. Additional air was given here. The moderately large prepyloric ulcer was immediately seen. The crater was fairly large as well. There was no active hemorrhage at this time. The crater had exudate at its base. The scope was then passed through the pylorus into the duodenum. The second and first portions were endoscopically normal with no duodenal ulcers or erosions seen. The scope was withdrawn back to the incisura. In the retroflexed view there was a sliding hiatal hernia present. The fundus and cardiac regions were endoscopically normal. The rugal folds had some minor atrophy but were otherwise grossly normal. Four-quadrant biopsies were taken of the gastric ulcer using cold forceps. I withdrew the scope to the GE junction where the hernia was seen. The GE junction was normal. The body of the esophagus was also normal. Bird Keeper photographs were taken for the patient and for the record. Perianal inspection and digital rectal examination were performed next. They were slightly prolapsing internal hemorrhoid that were uncomplicated. The prostate was slightly boggy. There were no aura nodules appreciated. The sphincter tone was slightly relaxed. A lubricated colonoscope was inserted into the rectum then advanced to the cecum without difficulty. The bowel preparation was fair at best. Nevertheless the cecum, right colon, transverse, and descending colons were endoscopically normal with no obvious mass lesions or inflammatory changes seen. Fine mucosal detail couldn't be observed throughout the examination because of this.The sigmoid had a few scattered uncomplicated diverticuli with slight hypertrophy of the circular musculature. The scope was then withdrawn to the rectum where there was a sessile velvety 2-3 cm polyp in the distal rectum. Multiple pieces were removed with the hot snare. The specimens were retrieved. I cauterized the base of the polyp. In the retroflexed view the rectum was unremarkable. Air was removed as I finished this part of the procedure. Likewise hospital insurance representative photographs were taken for the patient and for the record. There were no procedural complications. If indicated the patient should have a follow-up sigmoidoscopy in one year to evaluate the area of the rectal polypectomy.
== END 2016-12-25 10:00 | disposition home or self-care (01) ==
LOC: JD.SDS 07:05
PROVIDERS: ATTEND Surgery
PROC: 0DB68ZZ Excision of Stomach, Via Natural or Artificial Opening Endoscopic (ICD-10-PCS; principal; 2016-12-25)
PROC: 0DBP8ZZ Excision of Rectum, Via Natural or Artificial Opening Endoscopic (ICD-10-PCS; 2016-12-25)
DX: D12.8 Benign neoplasm of rectum (principal); K31.89 Other diseases of stomach and duodenum; K44.9 Diaphragmatic hernia without obstruction or gangrene; K25.9 Gastric ulcer, unspecified as acute or chronic, without hemorrhage or perforation; K57.30 Diverticulosis of large intestine without perforation or abscess without bleeding; K64.8 Other hemorrhoids; J30.9 Allergic rhinitis, unspecified; G30.9 Alzheimer's disease, unspecified; D64.9 Anemia, unspecified; F41.9 Anxiety disorder, unspecified; E78.00 Pure hypercholesterolemia, unspecified; E11.9 Type 2 diabetes mellitus without complications; Z79.1 Long term (current) use of non-steroidal anti-inflammatories (NSAID); Z79.84 Long term (current) use of oral hypoglycemic drugs; Z79.899 Other long term (current) drug therapy; Z90.49 Acquired absence of other specified parts of digestive tract; Z90.89 Acquired absence of other organs; Z98.890 Other specified postprocedural states; Z87.891 Personal history of nicotine dependence
CPT/HCPCS: 43239; 45385; 88305; J3010; J7120; 00810; J2704

== ENCOUNTER 2017-10-24 09:17 | Inpatient (IN) | payer MEDICARE, MEDICAID ==
[2017-10-24] MEDS ORDERED: Sodium Chloride 0.9% 500 ML IV ONE (10:32)
--- NOTE | 2017-10-24 10:37 | EDM.PDOC ---
ED HPI GENERAL MEDICAL PROBLEM - General Chief Complaint: Respiratory Problem Stated Complaint: LOWER BACK PAIN AND COUGH Time Seen by Provider: 10/24/17 10:18 Source of Information: Reports: Patient, Other (2 caregivers from [facility]) History Limitations: Reports: Altered Mental Status - History of Present Illness INITIAL COMMENTS - FREE TEXT/NARRATIVE: The patient is brought to the ED by 2 of his caregivers at [facility], a [facility]. The history is limited, as the patient has both schizophrenia and Alzheimer dementia. The caregivers state that the patient has had 2 days of a nonproductive cough, and generalized weakness since last night. The patient also has chronic low back pain, which may be worse than usual. No recent fever, nausea, vomiting, constipation, diarrhea, chest pain, or palpitations. The patient's PCP is Dr. Sinha. Treatments ALIGNING CHECKER: Reports: Acetaminophen Lower Back Pain Score (Numeric/FACES): 5 - Related Data Allergies Allergy/AdvReac Type Severity Reaction Status Date / Time No Known Allergies Allergy Verified 10/24/17 09:34 Home Meds: Home Meds Cholecalciferol (Vitamin D3) [Vitamin D3] 2 tab PO DAILY 04/05/16 [History] Donepezil [Aricept] 10 mg PO BEDTIME 04/05/16 [History] Famotidine 20 mg PO DAILY 04/05/16 [History] Fluticasone/Sod Chl/Sod Bicarb [Ticanase Kit] 1 spray NASBOTH BID 04/05/16 [ History] Lactase 1.5 tab PO BID 04/05/16 [History] Memantine HCl [Namenda Xr] 21 mg PO DAILY 04/05/16 [History] Multivit-Min/FA/Lycopene/Lut [Certavite Sr-Antioxidant Tab] 1 tab PO DAILY 04/05 [History] Simvastatin [Zocor] 10 mg PO BEDTIME 04/05/16 [History] SitaGLIPtin [Januvia] 50 mg PO DAILY 04/05/16 [History] Solifenacin Succinate [Vesicare] 10 mg PO 199904/05/16 [History] Venlafaxine HCl [Venlafaxine ER] 150 mg PO 1700 04/05/16 [History] risperiDONE 2 mg PO BID 04/05/16 [History] Acyclovir [Zovirax 5% Oint] 1 dose TOP 5XDAY PRN 12/17/16 [History] Divalproex Sodium [Divalproex Sodium ER] 2 tab PO BEDTIME 12/17/16 [History] Albuterol [IJP: Albuterol] 2.5 mg INH Q4H PRN 12/22/16 [History] Carbamide Peroxide [Ear Drops] 5 - 10 drop EARBOTH DAILY PRN 12/22/16 [History] Divalproex Sodium 250 mg PO DAILY 12/22/16 [History] Mupirocin Oint [Bactroban Oint] 1 applic TOP BID PRN 12/22/16 [History] Sodium Chloride/Sodium Bicarb [Nasa Mist Saline [place]] 1 spray NASBOTH DAILY PRN 12/22/16 [History] Baclofen 10 mg PO DAILY PRN 10/24/17 [History] Levothyroxine 25 mcg PO ACBREAKFAST 10/24/17 [History] PEG 3350/Na Sulf,Bicarb,Cl/KCl [Peg 3350 Electrolyte] 1 cap PO DAILY 10/24/17 [ History] Pantoprazole Sodium 40 mg PO DAILY 10/24/17 [History] Past Medical History HEENT History: Reports: Allergic Rhinitis Cardiovascular History: Reports: CAD, Heart Failure, High Cholesterol, PR (2004) , Other (See Below) Genitourinary History: Reports: Urinary Incontinence Musculoskeletal History: Reports: Back Pain, Chronic Neurological History: Reports: Alzheimers Disease, Head Trauma (as a child) Psychiatric History: Reports: Schizophrenia Endocrine/Metabolic History: Reports: Diabetes, Type II Hematologic History: Reports: Anemia - Past Surgical History HEENT Surgical History: Reports: Tonsillectomy Cardiovascular Surgical History: Reports: Coronary Artery Bypass (x 3 vessel, 2003) GI Surgical History: Reports: Appendectomy Neurological Surgical History: Reports: Lumbar Spine (Microdiscectomy x 2) Social & Family History - Tobacco Use Smoking Status *Q: Former Smoker Month/Year Tobacco Last Used: Quit 1970 - Caffeine Use Caffeine Use: Reports: Soda - Alcohol Use Alcohol Use History: No - Recreational Drug Use Recreational Drug Use: No - Living Situation & Occupation Living situation: Reports: Single, Other ([facility]) Occupation: Disabled ED ROS GENERAL - Review of Systems Review Of Systems: ROS reveals no pertinent complaints other than HPI. ED EXAM, GENERAL - Physical Exam Exam: See Below Exam Limited By: No Limitations General Appearance: Alert, WD/WN, No Apparent Distress Eye Exam: Bilateral Eye: Normal Inspection Ears: Normal External Exam, Hearing Grossly Normal Nose: Normal Inspection, No Blood Throat/Mouth: Normal Inspection, Normal Lips, Normal Voice, No Airway Compromise , Other (Edentulous) Head: Atraumatic, Normocephalic Neck: Normal Inspection, Full Range of Motion Respiratory/Chest: No Respiratory Distress, Lungs Clear, Normal Breath Sounds, No Accessory Muscle Use Cardiovascular: Normal Peripheral Pulses, No Gallop, No JVD, No Murmur, No Rub, Irregularly Irregular (Frequent skipped/extra beats) Peripheral Pulses: 4+: Radial (L), Radial (R) GI/Abdominal: Normal Bowel Sounds, Soft, Non-Tender, No Organomegaly, No Distention, No Abnormal Bruit, No Mass (Male) Exam: Deferred Rectal (Males) Exam: Deferred Back Exam: Full Range of Motion, Other (No visible abnormality to the patient's spine, however, the patient reported tenderness to palpation of all of the spinous processes) Extremities: Normal Inspection, Normal Range of Motion, No Pedal Edema, Normal Capillary Refill Neurological: Alert, No Motor/Sensory Deficits Psychiatric: Other (Unable to assess) Skin Exam: Warm, Dry, Intact, Normal Color, No Rash EKG INTERPRETATION EKG Date: 10/24/17 Time: 09:48 Rhythm: NSR (frequent PACs and PVCs) Rate (Beats/Min): 69 Clyde: LAD-Left Clyde Deviation P-Wave: Present QRS: LBBB ST-T: Normal QT: Normal Course - Vital Signs Last Recorded V/S: Last Vital Signs Temp 37.2 C 10/24/17 09:31 Pulse 80 10/24/17 09:31 Resp 16 10/24/17 09:31 BP 115/61 10/24/17 09:31 Pulse Ox 90 L 10/24/17 09:31 - Orders/Labs/Meds Orders: Active Orders 24 hr Category Date Time Status EKG Documentation Completion [RC] ASDIRECTED Care 10/24/17 10:07 Active EKG Documentation Completion [RC] STAT Care 10/24/17 12:05 Active CULTURE BLOOD [BC] Stat Lab 10/24/17 11:00 Received CULTURE BLOOD [BC] Stat Lab 10/24/17 11:10 Received UA W/MICROSCOPIC [URIN] Stat Lab 10/24/17 11:15 Ordered Sodium Chloride 0.9% [Normal Saline] 250 ml Med 10/24/17 11:15 Active IV ASDIRECTED Sodium Chloride 0.9% [Saline Flush] Med 10/24/17 11:02 Active 10 ml FLUSH ONETIME PRN Blood Culture x2 Reflex Set [OM.PC] Stat Oth 10/24/17 10:31 Ordered EKG 12 Lead [EK] Stat Ther 10/24/17 10:06 Ordered Medication Orders Sodium Chloride (Normal Saline) 250 mls @ 80 mls/hr IV ASDIRECTED KALIE Last Admin: 10/24/17 13:34 Dose: 80 mls/hr Sodium Chloride (Saline Flush) 10 ml FLUSH ONETIME PRN PRN Reason: IV FLUSH Last Admin: 10/24/17 12:39 Dose: 10 ml Labs: Laboratory Tests 10/24/17 10/24/17 10/24/17 Range/Units 09:55 09:55 09:55 WBC 8.84 (4.23-9.07) K/mm3 RBC 4.35 L (4.63-6.08) M/mm3 Hgb 14.4 (13.7-17.5) gm/L Hct 42.6 (40.1-51.0) % MCV 97.9 H (79.0-92.2) fl MCH 33.1 H (25.7-32.2) pg MCHC 33.8 (32.2-35.5) g/dl RDW Std Deviation 49.8 H (35.1-43.9) fL Plt Count 167 (163-337) K/mm3 MPV 10.9 (9.4-12.3) fl Neutrophils % (Manual) 78 H (40-60) % Band Neutrophils % 10 (0-10) % Lymphocytes % (Manual) 8 L (20-40) % Atypical Lymphs % 0 % Monocytes % (Manual) 3 (2-10) % Eosinophils % (Manual) 0 L (0.8-7.0) % Basophils % (Manual) 1 (0.2-1.2) Platelet Estimate Adequate RBC Morph Comment Normal PT 10.9 (9.5-12.1) SECONDS INR 1.00 APTT 34 H (24-31) SECONDS D-Dimer, Quantitative (0.19-0.50) mg/L Puncture Site ABG pH (7.35-7.45) ABG pCO2 (35.0-45.0) mmHg ABG pO2 (80.0-100.0) mmHg ABG HCO3 (22.0-26.0) meq/L ABG O2 Saturation (96.0-97.0) % ABG Base Excess (-2-2.0) Brandon Test A-a Gradient mmHg O2 Delivery Device FiO2 (21.00-100.00) % Sodium 134 L (136-145) mEq/L Potassium 4.4 (3.5-5.1) mEq/L Chloride 100 (98-107) mEq/L Carbon Dioxide 25 (21-32) mEq/L Anion Gap 13.4 (5-15) BUN 16 (7-18) mg/dL Creatinine 1.3 (0.7-1.3) mg/dL Est Cr Clr Drug Dosing 40.74 mL/min Estimated GFR (MDRD) 53 (>60) mL/min BUN/Creatinine Ratio 12.3 L (14-18) Glucose 126 H (83-115) mg/dL Lactic Acid (0.4-2.0) mmol/L Calcium 8.8 (8.5-10.1) mg/dL Magnesium (1.8-2.4) mg/dl Troponin I 0.104 H* (0.00-0.056) ng/mL NT-Pro-B Natriuret Pep (0-450) pg/mL Urine Color (Yellow) Urine Appearance (Clear) Urine pH (5.0-8.0) Ur Specific Watson (1.005-1.030) Urine Protein (Negative) Urine Glucose (UA) (Negative) Urine Ketones (Negative) Urine Occult Blood (Negative) Urine Nitrite (Negative) Urine Bilirubin (Negative) Urine Urobilinogen (0.2-1.0) Ur Leukocyte Esterase (Negative) Urine RBC (0-5) /hpf Urine WBC (0-5) /hpf Ur Epithelial Cells (0-5) /hpf Urine Bacteria (FEW) /hpf Urine Mucus (FEW) /hpf 10/24/17 10/24/17 10/24/17 Range/Units 09:55 09:55 09:55 WBC (4.23-9.07) K/mm3 RBC (4.63-6.08) M/mm3 Hgb (13.7-17.5) gm/L Hct (40.1-51.0) % MCV (79.0-92.2) fl MCH (25.7-32.2) pg MCHC (32.2-35.5) g/dl RDW Std Deviation (35.1-43.9) fL Plt Count (163-337) K/mm3 MPV (9.4-12.3) fl Neutrophils % (Manual) (40-60) % Band Neutrophils % (0-10) % Lymphocytes % (Manual) (20-40) % Atypical Lymphs % % Monocytes % (Manual) (2-10) % Eosinophils % (Manual) (0.8-7.0) % Basophils % (Manual) (0.2-1.2) Platelet Estimate RBC Morph Comment PT (9.5-12.1) SECONDS INR APTT (24-31) SECONDS D-Dimer, Quantitative 2.31 H (0.19-0.50) mg/L Puncture Site ABG pH (7.35-7.45) ABG pCO2 (35.0-45.0) mmHg ABG pO2 (80.0-100.0) mmHg ABG HCO3 (22.0-26.0) meq/L ABG O2 Saturation (96.0-97.0) % ABG Base Excess (-2-2.0) Brandon Test A-a Gradient mmHg O2 Delivery Device FiO2 (21.00-100.00) % Sodium (136-145) mEq/L Potassium (3.5-5.1) mEq/L Chloride (98-107) mEq/L Carbon Dioxide (21-32) mEq/L Anion Gap (5-15) BUN (7-18) mg/dL Creatinine (0.7-1.3) mg/dL Est Cr Clr Drug Dosing mL/min Estimated GFR (MDRD) (>60) mL/min BUN/Creatinine Ratio (14-18) Glucose (83-115) mg/dL Lactic Acid (0.4-2.0) mmol/L Calcium (8.5-10.1) mg/dL Magnesium 1.6 L (1.8-2.4) mg/dl Troponin I (0.00-0.056) ng/mL NT-Pro-B Natriuret Pep 2197 H (0-450) pg/mL Urine Color (Yellow) Urine Appearance (Clear) Urine pH (5.0-8.0) Ur Specific Watson (1.005-1.030) Urine Protein (Negative) Urine Glucose (UA) (Negative) Urine Ketones (Negative) Urine Occult Blood (Negative) Urine Nitrite (Negative) Urine Bilirubin (Negative) Urine Urobilinogen (0.2-1.0) Ur Leukocyte Esterase (Negative) Urine RBC (0-5) /hpf Urine WBC (0-5) /hpf Ur Epithelial Cells (0-5) /hpf Urine Bacteria (FEW) /hpf Urine Mucus (FEW) /hpf 10/24/17 10/24/17 10/24/17 Range/Units 11:00 11:05 11:15 WBC (4.23-9.07) K/mm3 RBC (4.63-6.08) M/mm3 Hgb (13.7-17.5) gm/L Hct (40.1-51.0) % MCV (79.0-92.2) fl MCH (25.7-32.2) pg MCHC (32.2-35.5) g/dl RDW Std Deviation (35.1-43.9) fL Plt Count (163-337) K/mm3 MPV (9.4-12.3) fl Neutrophils % (Manual) (40-60) % Band Neutrophils % (0-10) % Lymphocytes % (Manual) (20-40) % Atypical Lymphs % % Monocytes % (Manual) (2-10) % Eosinophils % (Manual) (0.8-7.0) % Basophils % (Manual) (0.2-1.2) Platelet Estimate RBC Morph Comment PT (9.5-12.1) SECONDS INR APTT (24-31) SECONDS D-Dimer, Quantitative (0.19-0.50) mg/L Puncture Site Rt radial ABG pH 7.41 (7.35-7.45) ABG pCO2 36.0 (35.0-45.0) mmHg ABG pO2 65.0 L (80.0-100.0) mmHg ABG HCO3 22.1 (22.0-26.0) meq/L ABG O2 Saturation 91.2 L (96.0-97.0) % ABG Base Excess -1.6 (-2-2.0) Brandon Test Positive A-a Gradient 25 mmHg O2 Delivery Device Room air FiO2 21.00 (21.00-100.00) % Sodium (136-145) mEq/L Potassium (3.5-5.1) mEq/L Chloride (98-107) mEq/L Carbon Dioxide (21-32) mEq/L Anion Gap (5-15) BUN (7-18) mg/dL Creatinine (0.7-1.3) mg/dL Est Cr Clr Drug Dosing mL/min Estimated GFR (MDRD) (>60) mL/min BUN/Creatinine Ratio (14-18) Glucose (83-115) mg/dL Lactic Acid 0.5 (0.4-2.0) mmol/L Calcium (8.5-10.1) mg/dL Magnesium (1.8-2.4) mg/dl Troponin I (0.00-0.056) ng/mL NT-Pro-B Natriuret Pep (0-450) pg/mL Urine Color Yellow (Yellow) Urine Appearance Clear (Clear) Urine pH 7.0 (5.0-8.0) Ur Specific Watson 1.020 (1.005-1.030) Urine Protein Negative (Negative) Urine Glucose (UA) Negative (Negative) Urine Ketones Trace H (Negative) Urine Occult Blood Negative (Negative) Urine Nitrite Negative (Negative) Urine Bilirubin Negative (Negative) Urine Urobilinogen 1.0 (0.2-1.0) Ur Leukocyte Esterase Negative (Negative) Urine RBC Not seen (0-5) /hpf Urine WBC 0-5 (0-5) /hpf Ur Epithelial Cells 0-5 (0-5) /hpf Urine Bacteria Few (FEW) /hpf Urine Mucus Not seen (FEW) /hpf 1618 Range/Units 12:20 WBC (4.23-9.07) K/mm3 RBC (4.63-6.08) M/mm3 Hgb (13.7-17.5) gm/L Hct (40.1-51.0) % MCV (79.0-92.2) fl MCH (25.7-32.2) pg MCHC (32.2-35.5) g/dl RDW Std Deviation (35.1-43.9) fL Plt Count (163-337) K/mm3 MPV (9.4-12.3) fl Neutrophils % (Manual) (40-60) % Band Neutrophils % (0-10) % Lymphocytes % (Manual) (20-40) % Atypical Lymphs % % Monocytes % (Manual) (2-10) % Eosinophils % (Manual) (0.8-7.0) % Basophils % (Manual) (0.2-1.2) Platelet Estimate RBC Morph Comment PT (9.5-12.1) SECONDS INR APTT (24-31) SECONDS D-Dimer, Quantitative (0.19-0.50) mg/L Puncture Site ABG pH (7.35-7.45) ABG pCO2 (35.0-45.0) mmHg ABG pO2 (80.0-100.0) mmHg ABG HCO3 (22.0-26.0) meq/L ABG O2 Saturation (96.0-97.0) % ABG Base Excess (-2-2.0) Brandon Test A-a Gradient mmHg O2 Delivery Device FiO2 (21.00-100.00) % Sodium (136-145) mEq/L Potassium (3.5-5.1) mEq/L Chloride (98-107) mEq/L Carbon Dioxide (21-32) mEq/L Anion Gap (5-15) BUN (7-18) mg/dL Creatinine (0.7-1.3) mg/dL Est Cr Clr Drug Dosing mL/min Estimated GFR (MDRD) (>60) mL/min BUN/Creatinine Ratio (14-18) Glucose (83-115) mg/dL Lactic Acid (0.4-2.0) mmol/L Calcium (8.5-10.1) mg/dL Magnesium (1.8-2.4) mg/dl Troponin I 0.111 H* (0.00-0.056) ng/mL NT-Pro-B Natriuret Pep (0-450) pg/mL Urine Color (Yellow) Urine Appearance (Clear) Urine pH (5.0-8.0) Ur Specific Watson (1.005-1.030) Urine Protein (Negative) Urine Glucose (UA) (Negative) Urine Ketones (Negative) Urine Occult Blood (Negative) Urine Nitrite (Negative) Urine Bilirubin (Negative) Urine Urobilinogen (0.2-1.0) Ur Leukocyte Esterase (Negative) Urine RBC (0-5) /hpf Urine WBC (0-5) /hpf Ur Epithelial Cells (0-5) /hpf Urine Bacteria (FEW) /hpf Urine Mucus (FEW) /hpf Meds: Medications Generic Name Dose Route Start Last Admin Trade Name Freq PRN Reason Stop Dose Admin Sodium Chloride 250 mls @ 80 mls/hr 10/24/17 11:15 10/24/17 13:34 Normal Saline IV 80 mls/hr ASDIRECTED KALIE Administration Sodium Chloride 10 ml 10/24/17 11:02 10/24/17 12:39 Saline Flush FLUSH 10 ml ONETIME PRN Administration IV FLUSH Discontinued Medications Generic Name Dose Route Start Last Admin Trade Name Freq PRN Reason Stop Dose Admin Sodium Chloride 500 mls @ 1,000 mls/hr 10/24/17 10:32 10/24/17 10:49 Normal Saline IV 10/24/17 11:01 1,000 mls/hr .BOLUS ONE Administration Magnesium Sulfate 2 gm/ Premix 50 mls @ 50 mls/hr 10/24/17 11:30 10/24/17 12: 01 IV 10/24/17 12:29 50 mls/hr ONETIME STA Administration Iopamidol 50 ml 10/24/17 11:02 10/24/17 12:38 Isovue-370 (76%) IVPUSH 10/24/17 11:03 50 ml ONETIME ONE Administration Iopamidol 100 ml 10/24/17 11:02 10/24/17 12:38 Isovue-370 (76%) IVPUSH 10/24/17 11:03 50 ml ONETIME ONE Administration - Re-Assessments/Exams Free Text/Narrative Re-Assessment/Exam: 10/24/17 10:33 The patient replies "I don't know" to most questions, therefore a history is difficult to obtain, however, the patient's BP was 115/61 with a HR of 80 upon arrival. It has since decreased to 89/54 with a HR of 76. The etiology of this is unclear. The patient does not appear to be septic, however, I have ordered a septic workup. It is also possible that the patient has suffered a right ventricular PR, although he denies chest pain. His ECG reflects a left bundle branch block, which was seen on a previous ECG. I have ordered a troponin. 10/24/17 10:39 The patient's troponin has returned mildly elevated at 0.104. Reviewing prior medical records, I see that the patient has had mildly elevated troponin in the past, and that, given the patient's comorbidities and DNR status, no further treatment was given at that time. 10/24/17 10:59 Portable chest radiograph appears unremarkable. Cardiac silhouette is at the upper limits of normal. No pulmonary vascular congestion. No pleural effusion seen. No focal infiltrate. No pneumothorax. Sternotomy wires incidentally noted. Formal read per the Radiologist pending. 10/24/17 11:01 The patient's D-dimer has returned substantially elevated at 2.31, with normal renal function. I have ordered a CT angiogram of the chest to evaluate for PE. 10/24/17 12:04 CT angiogram of the chest is read by Dr. suazo as: 1. No findings of pulmonary embolism. 2. Emphysematous change with mild bibasilar fibrosis. 3. Other incidental findings. 10/24/17 12:05 The patient's blood pressure has improved to 105/63 with a HR of 70. I have ordered a repeat troponin and ECG. If there are no significant changes, the patient may be fit for return to [facility] overnight observation. 10/24/17 12:20 Repeat ECG at 12:13 demonstrates a normal sinus rhythm at 71 BPM. There are frequent PACs and PVCs. There is left axis deviation and a left bundle branch block, both old. No Q waves are seen. QTc is within normal limits at 472 ms. No significant change from earlier ECG. 10/24/17 12:50 Repeat troponin has returned essentially unchanged at 0.111. 10/24/17 13:48 Test results discussed with the patient's two caregivers. Today's workup finds some lab abnormalities, but no acute problems that would explain the patient's generalized weakness and cough. As above, the patient's troponin is mildly elevated, but appears to be stable, and chronic. His D-dimer is elevated, but a CT angiogram of the chest is negative for not only a PE, but any other acute findings, as well. His BNP is elevated at 2197, but clinically he is not in CHF. His magnesium level was found to be mildly depressed at 1.6; he received IV magnesium replacement in the ED. I do not see an indication to admit the patient to the hospital, however, the patient's caregivers feel that he is too weak to return to the [facility]. We have paged Dr. Rhodes. 10/24/17 14:[address] Rhodes at 14:17. He accepts the patient for placement and observation. Departure - Departure Time of Disposition: 14:20 Disposition: Refer to Observation Condition: Fair Clinical Impression: Generalized weakness, Hypomagnesemia, Elevated troponin, Abnormal ECG - Discharge Information - My Orders Last 24 Hours: My Active Orders 10/24/17 10:06 EKG 12 Lead [EK] Stat 10/24/17 10:07 EKG Documentation Completion [RC] ASDIRECTED 10/24/17 10:31 Blood Culture x2 Reflex Set [OM.PC] Stat 10/24/17 11:00 CULTURE BLOOD [BC] Stat 10/24/17 11:02 Sodium Chloride 0.9% [Saline Flush] 10 ml FLUSH ONETIME PRN 10/24/17 11:10 CULTURE BLOOD [BC] Stat 10/24/17 11:15 UA W/MICROSCOPIC [URIN] Stat Sodium Chloride 0.9% [Normal Saline] 250 ml IV ASDIRECTED 10/24/17 12:05 EKG Documentation Completion [RC] STAT - Assessment/Plan Last 24 Hours: My Active Orders 10/24/17 10:06 EKG 12 Lead [EK] Stat 10/24/17 10:07 EKG Documentation Completion [RC] ASDIRECTED 10/24/17 10:31 Blood Culture x2 Reflex Set [OM.PC] Stat 10/24/17 11:00 CULTURE BLOOD [BC] Stat 10/24/17 11:02 Sodium Chloride 0.9% [Saline Flush] 10 ml FLUSH ONETIME PRN 10/24/17 11:10 CULTURE BLOOD [BC] Stat 10/24/17 11:15 UA W/MICROSCOPIC [URIN] Stat Sodium Chloride 0.9% [Normal Saline] 250 ml IV ASDIRECTED 10/24/17 12:05 EKG Documentation Completion [RC] STAT
[2017-10-24] MEDS ORDERED: Iopamidol 755 MG/ML 50 ML Bottle IVPUSH ONE (11:02)
[2017-10-24] MEDS ORDERED: Sodium Chloride 0.9% 10 ML Syringe FLUSH PRN (11:02)
[2017-10-24] MEDS ORDERED: Iopamidol 755 Mg/ML 100 ML Bottle IVPUSH ONE (11:02)
--- NOTE | 2017-10-24 11:08 | CR ---
Chest: Portable view of the chest was obtained. Comparison: Prior chest x-ray od 12/17/16. Heart size is slightly enlarged. Previous sternotomy is noted for CABG. Tortuous thoracic aorta is seen as well as atherosclerotic calcification. Lungs are clear with no acute parenchymal densities. Slight scarring is noted within the left midlung. Mild scoliosis is noted within the spine. Impression: 1. Mild cardiomegaly and other incidental findings. 2. Nothing acute is seen on portable chest x-ray. Diagnostic code #2
[2017-10-24] MEDS ORDERED: Sodium Chloride 0.9% 250 ML IV SCH (11:15)
[2017-10-24] MEDS ORDERED: Magnesium Sulfate/Water 2 GM in Premix Bag 1 BAG IV STA (11:30)
--- NOTE | 2017-10-24 11:59 | CT ---
CT chest Technique: Multiple axial sections through the chest were obtained. Intravenous contrast was utilized. Study has been performed as a pulmonary angiogram protocol. Comparison: No prior chest CT. Findings: Pulmonary arteries are well-opacified. No filling defects are seen to indicate pulmonary embolism. Coronary artery calcification is seen. Heart is mildly enlarged. Prior sternotomy is noted. Mediastinum shows several small lymph nodes which are normal. Aorta shows atherosclerotic change without aneurysm. Small portion of the visualized upper abdominal structures are within normal limits. Emphysematous changes are seen. Coarse interstitial change is noted within both lung bases most likely representing mild fibrosis. Several small subpleural blebs are seen within the lung bases. No acute parenchymal change is seen. Bone window settings were reviewed which shows no acute osseous abnormality. Impression: 1. No findings of pulmonary embolism. 2. Emphysematous change with mild bibasilar fibrosis. 3. Other incidental findings. Diagnostic code #2
[2017-10-24] MEDS ORDERED: Carbamide Peroxide 6.5% Otic Soln 15 ML Bottle EARBOTH PRN (16:46)
[2017-10-24] MEDS ORDERED: Mupirocin Oint 22 GM Tube TOP PRN (16:46)
[2017-10-24] MEDS ORDERED: Baclofen 10 MG Tab PO PRN (16:46)
[2017-10-24] MEDS ORDERED: Sodium Chloride 0.65% Nasal Spray 45 ML Bottle NASBOTH PRN (16:46)
[2017-10-24] MEDS ORDERED: Albuterol 0.083% 2.5 MG/3 ML Neb Soln INH PRN (16:46)
[2017-10-24] MEDS ORDERED: ACYCLOVIR 5% TOP PRN (16:46)
[2017-10-24] MEDS ORDERED: LORazepam 2 MG/ML SDV IVPUSH PRN (16:48)
[2017-10-24] MEDS ORDERED: Metoprolol Tartrate 5 MG/5 ML SDV IVPUSH PRN (16:48)
[2017-10-24] MEDS ORDERED: hydrALAZINE 20 MG/ML SDV IVPUSH PRN (16:48)
[2017-10-24] MEDS ORDERED: LORazepam 2 MG/ML SDV IV PRN (16:50)
[2017-10-24] MEDS ORDERED: Ondansetron 4 MG/2 ML SDV IV PRN (16:50)
[2017-10-24] MEDS ORDERED: Docusate Sodium 100 MG Cap PO PRN (16:50)
[2017-10-24] MEDS ORDERED: Polyethylene Glycol 3350 Powder 17 GM Packet PO PRN (16:50)
[2017-10-24] MEDS ORDERED: HYDROmorphone 0.5 MG/0.5 ML SYRINGE IVPUSH PRN (16:50)
[2017-10-24] MEDS ORDERED: Promethazine 6.25 MG in Sodium Chloride 0.9% 50 ML IV PRN (16:50)
[2017-10-24] MEDS ORDERED: Acetaminophen/HYDROcodone 325-5 MG Tab PO PRN (16:50)
[2017-10-24] MEDS ORDERED: Acetaminophen 325 MG Tab PO PRN (16:50)
[2017-10-24] MEDS ORDERED: Bisacodyl 5 MG Tab PO PRN (16:50)
[2017-10-24] MEDS ORDERED: Magnesium Oxide 400 MG Tab PO ONE (18:00)
[2017-10-24] MEDS ORDERED: Non-Formulary Medication 1 Each (Lorazepam [Lorazepam] 0.5 MG) PO PRN (19:12)
[2017-10-24] MEDS ORDERED: Magnesium Hydroxide 400 MG/5 ML Susp 30 ML Cup PO PRN (19:12)
[2017-10-24] MEDS ORDERED: TSP PO PRN (19:12)
[2017-10-24] MEDS ORDERED: Non-Formulary Medication 1 Each (Acetaminophen [Tylenol] 325 MG) PO PRN (19:12)
[2017-10-24] MEDS ORDERED: Non-Formulary Medication 1 Each (Hydrocodone/Acetaminophen 1 TAB) PO PRN (19:12)
[2017-10-24] MEDS ORDERED: Azithromycin 500 MG in Sodium Chloride 0.9% 250 ML IV ONE (19:13)
--- NOTE | 2017-10-24 19:15 | PCM.HP ---
H&P History of Present Illness - General Date of Service: 10/24/17 Admit Problem/Dx: Admission Diagnosis/Problem Admission Diagnosis/Problem Weakness Source of Information: Patient, Family, Old Records, Provider, RN Notes Reviewed History Limitations: Reports: Other - History of Present Illness Initial Comments - Free Text/Narative: This is a 69-year-old elderly white male with past medical history of allergic rhinitis, coronary artery disease, heart failure with unknown ejection fraction , hyperlipidemia, history of PR, urinary incontinence, chronic back pain, anemia , and type 2 diabetes who comes in for evaluation of 2 day history of nonproductive cough associated with generalized weakness. No reports of fever or chills. No issues related to GI or . Patient carries a history of alzheimer's dementia with discussed schizophrenia. He is not able to provide pertinent information. His history of present illness was supplied by his caregivers. His initial workup in the emergency department shows a CBC remarkable for RBC of 4.35, MCV of 97.9, MCH of 33.1, RDW of 49.8, neutrophils of 78%, and lymphocytes of 8%. His coagulation studies show PT of 10.9, INR of 1, APTT of 34 ,and d-dimer of 2.31. His ABG results show pH of 7.41, PCO2 of 36, PO2 of 65, HCO3 of 22.1, O2 saturation of 91.2 on RA with 21% FiO2. His chemistry is significant for sodium of 134, glucose of 126, magnesium of 1.6, troponin of 0.104, and 0.111, and proBNP of 2197. His UDS is negative for UTI. Chest x-ray shows no acute abnormal findings. Chest CTA report reads no findings of pulmonary embolism. Emphysematous change with mild bibasilar fibrosis. Several small subpleural blebs are seen within the lung bases. No acute parenchymal changes seen. Patient is being admitted for medical evaluation of generalized weakness. He is DNR/DNI. Lower Back Pain Score (Numeric/FACES): 5 - Related Data Allergies/Adverse Reactions: Allergies Allergy/AdvReac Type Severity Reaction Status Date / Time No Known Allergies Allergy Verified 10/24/17 17:23 Home Medications: Home Meds Cholecalciferol (Vitamin D3) [Vitamin D3] 2 tab PO DAILY 04/05/16 [History] Donepezil [Aricept] 10 mg PO BEDTIME 04/05/16 [History] Famotidine 20 mg PO DAILY 04/05/16 [History] Fluticasone/Sod Chl/Sod Bicarb [Ticanase Kit] 1 spray NASBOTH BID 04/05/16 [ History] Lactase 1.5 tab PO BID 04/05/16 [History] Memantine HCl [Namenda Xr] 21 mg PO DAILY 04/05/16 [History] Multivit-Min/FA/Lycopene/Lut [Certavite Sr-Antioxidant Tab] 1 tab PO DAILY 04/05 [History] Simvastatin [Zocor] 10 mg PO BEDTIME 04/05/16 [History] SitaGLIPtin [Januvia] 50 mg PO DAILY 04/05/16 [History] Solifenacin Succinate [Vesicare] 10 mg PO 2000 04/05/16 [History] Venlafaxine HCl [Venlafaxine ER] 75 mg PO ASDIRECTED 04/05/16 [History] risperiDONE 2 mg PO BID 04/05/16 [History] Acyclovir [Zovirax 5% Oint] 1 dose TOP 5XDAY PRN 12/17/16 [History] Divalproex Sodium [Divalproex Sodium ER] 2 tab PO BEDTIME 12/17/16 [History] Albuterol [IJP: Albuterol] 2.5 mg INH QID PRN 12/22/16 [History] Carbamide Peroxide [Ear Drops] 5 - 10 drop EARBOTH BID PRN 12/22/16 [History] Divalproex Sodium 250 mg PO DAILY 12/22/16 [History] Mupirocin Oint [Bactroban Oint] 1 applic TOP BID PRN 12/22/16 [History] Sodium Chloride/Sodium Bicarb [Nasa Mist Saline [place]] 1 spray NASBOTH DAILY PRN 12/22/16 [History] Acetaminophen [Tylenol] 325 mg PO Q4H PRN 10/24/17 [History] Baclofen 10 mg PO TID PRN 10/24/17 [History] Hydrocodone/Acetaminophen [Hydrocodon-Acetaminophen 5-325] 1 tab PO Q4HR PRN [History] LORazepam 0.5 mg PO ASDIRECTED PRN 10/24/17 [History] Levothyroxine 25 mcg PO ACBREAKFAST 10/24/17 [History] Magnesium Hydroxide [Milk of Magnesia] 15 - 30 ml PO DAILY PRN 10/24/17 [History ] Non-Formulary Medication [NF Drug] 2 - 4 tsp PO ASDIRECTED PRN 10/24/17 [History ] PEG 3350/Na Sulf,Bicarb,Cl/KCl [Peg 3350 Electrolyte] 1 cap PO DAILY 10/24/17 [ History] Pantoprazole Sodium 40 mg PO DAILY 10/24/17 [History] Past Medical History HEENT History: Reports: Allergic Rhinitis Cardiovascular History: Reports: CAD, Heart Failure, High Cholesterol, PR (2004) , Other (See Below) Other Cardiovascular History: Low cardiac output, PR 2004 Respiratory History: Reports: None, SOB Gastrointestinal History: Reports: None Genitourinary History: Reports: Urinary Incontinence KENNEL SUPERVISOR History: Reports: None Musculoskeletal History: Reports: Back Pain, Chronic Neurological History: Reports: Alzheimers Disease, Head Trauma (as a child) Other Neuro History: Head injury as a child Psychiatric History: Reports: Schizophrenia Endocrine/Metabolic History: Reports: Diabetes, Type II Hematologic History: Reports: Anemia Immunologic History: Reports: None Oncologic (Cancer) History: Reports: None Dermatologic History: Reports: None - Past Surgical History HEENT Surgical History: Reports: Tonsillectomy Cardiovascular Surgical History: Reports: Coronary Artery Bypass (x 3 vessel, 2003) GI Surgical History: Reports: Appendectomy Neurological Surgical History: Reports: Lumbar Spine (Microdiscectomy x 2) Social & Family History - Tobacco Use Smoking Status *Q: Former Smoker Month/Year Tobacco Last Used: Quit 1970 - Caffeine Use Caffeine Use: Reports: Soda - Recreational Drug Use Recreational Drug Use: No - Living Situation & Occupation Living situation: Reports: Single, Other ([facility]) Occupation: Disabled H&P Review of Systems - Review of Systems: Review Of Systems: Unable To Obtain Free Text/Narrative: Patient is altered and currently not talking. He is also severely demented. General: Reports: Weakness Pulmonary: Reports: Cough Exam - Exam Exam: See Below - Vital Signs Vital Signs: Last Vital Signs Temp 37.4 C 10/24/17 16:50 Pulse 93 10/24/17 16:50 Resp 18 10/24/17 16:50 BP 122/94 H 10/24/17 16:50 Pulse Ox 91 L 10/24/17 16:50 Weight: 67.132 kg - Exam General: Alert. No: Mild Distress HEENT: Conjunctiva Clear, Nares Patent, Pupils Equal (Male) Exam: Deferred Rectal (Males) Exam: Deferred Back Exam: Normal Inspection, Other (Kyphosis) Extremities: Normal Inspection, Non-Tender, Normal Capillary Refill Peripheral Pulses: 2+: Posterior Tibial (L), Posterior Tibial (R), Dorsalis Pedis (L), Dorsalis Pedis (R) Skin: Warm, Dry, Intact Neuro Extensive - Mental Status: Disorientation to Person, Disorientation to Place, Disorientation to Time, Other (unable to follow commands). No: Normal Cognition Neuro Extensive - Motor, Sensory, Reflexes: Other (unable to perform he does not follow commands) Psychiatric: No: Normal Affect - Patient Data Lab Results Last 24 hrs: Laboratory Results - last 24 hr 10/24/17 10/24/17 10/24/17 Range/Units 09:55 09:55 09:55 WBC 8.84 (4.23-9.07) K/mm3 RBC 4.35 L (4.63-6.08) M/mm3 Hgb 14.4 (13.7-17.5) gm/L Hct 42.6 (40.1-51.0) % MCV 97.9 H (79.0-92.2) fl MCH 33.1 H (25.7-32.2) pg MCHC 33.8 (32.2-35.5) g/dl RDW Std Deviation 49.8 H (35.1-43.9) fL Plt Count 167 (163-337) K/mm3 MPV 10.9 (9.4-12.3) fl Neutrophils % (Manual) 78 H (40-60) % Band Neutrophils % 10 (0-10) % Lymphocytes % (Manual) 8 L (20-40) % Atypical Lymphs % 0 % Monocytes % (Manual) 3 (2-10) % Eosinophils % (Manual) 0 L (0.8-7.0) % Basophils % (Manual) 1 (0.2-1.2) Platelet Estimate Adequate RBC Morph Comment Normal PT 10.9 (9.5-12.1) SECONDS INR 1.00 APTT 34 H (24-31) SECONDS D-Dimer, Quantitative (0.19-0.50) mg/L Puncture Site ABG pH (7.35-7.45) ABG pCO2 (35.0-45.0) mmHg ABG pO2 (80.0-100.0) mmHg ABG HCO3 (22.0-26.0) meq/L ABG O2 Saturation (96.0-97.0) % ABG Base Excess (-2-2.0) Brandon Test A-a Gradient mmHg O2 Delivery Device FiO2 (21.00-100.00) % Sodium 134 L (136-145) mEq/L Potassium 4.4 (3.5-5.1) mEq/L Chloride 100 (98-107) mEq/L Carbon Dioxide 25 (21-32) mEq/L Anion Gap 13.4 (5-15) BUN 16 (7-18) mg/dL Creatinine 1.3 (0.7-1.3) mg/dL Est Cr Clr Drug Dosing 40.74 mL/min Estimated GFR (MDRD) 53 (>60) mL/min BUN/Creatinine Ratio 12.3 L (14-18) Glucose 126 H (83-115) mg/dL POC Glucose (83-110) mg/dL Lactic Acid (0.4-2.0) mmol/L Calcium 8.8 (8.5-10.1) mg/dL Magnesium (1.8-2.4) mg/dl Troponin I 0.104 H* (0.00-0.056) ng/mL NT-Pro-B Natriuret Pep (0-450) pg/mL Urine Color (Yellow) Urine Appearance (Clear) Urine pH (5.0-8.0) Ur Specific [place] (1.005-1.030) Urine Protein (Negative) Urine Glucose (UA) (Negative) Urine Ketones (Negative) Urine Occult Blood (Negative) Urine Nitrite (Negative) Urine Bilirubin (Negative) Urine Urobilinogen (0.2-1.0) Ur Leukocyte Esterase (Negative) Urine RBC (0-5) /hpf Urine WBC (0-5) /hpf Ur Epithelial Cells (0-5) /hpf Urine Bacteria (FEW) /hpf Urine Mucus (FEW) /hpf 10/24/17 10/24/17 10/24/17 Range/Units 09:55 09:55 09:55 WBC (4.23-9.07) K/mm3 RBC (4.63-6.08) M/mm3 Hgb (13.7-17.5) gm/L Hct (40.1-51.0) % MCV (79.0-92.2) fl MCH (25.7-32.2) pg MCHC (32.2-35.5) g/dl RDW Std Deviation (35.1-43.9) fL Plt Count (163-337) K/mm3 MPV (9.4-12.3) fl Neutrophils % (Manual) (40-60) % Band Neutrophils % (0-10) % Lymphocytes % (Manual) (20-40) % Atypical Lymphs % % Monocytes % (Manual) (2-10) % Eosinophils % (Manual) (0.8-7.0) % Basophils % (Manual) (0.2-1.2) Platelet Estimate RBC Morph Comment PT (9.5-12.1) SECONDS INR APTT (24-31) SECONDS D-Dimer, Quantitative 2.31 H (0.19-0.50) mg/L Puncture Site ABG pH (7.35-7.45) ABG pCO2 (35.0-45.0) mmHg ABG pO2 (80.0-100.0) mmHg ABG HCO3 (22.0-26.0) meq/L ABG O2 Saturation (96.0-97.0) % ABG Base Excess (-2-2.0) Brandon Test A-a Gradient mmHg O2 Delivery Device FiO2 (21.00-100.00) % Sodium (136-145) mEq/L Potassium (3.5-5.1) mEq/L Chloride (98-107) mEq/L Carbon Dioxide (21-32) mEq/L Anion Gap (5-15) BUN (7-18) mg/dL Creatinine (0.7-1.3) mg/dL Est Cr Clr Drug Dosing mL/min Estimated GFR (MDRD) (>60) mL/min BUN/Creatinine Ratio (14-18) Glucose (83-115) mg/dL POC Glucose (83-110) mg/dL Lactic Acid (0.4-2.0) mmol/L Calcium (8.5-10.1) mg/dL Magnesium 1.6 L (1.8-2.4) mg/dl Troponin I (0.00-0.056) ng/mL NT-Pro-B Natriuret Pep 2197 H (0-450) pg/mL Urine Color (Yellow) Urine Appearance (Clear) Urine pH (5.0-8.0) Ur Specific [place] (1.005-1.030) Urine Protein (Negative) Urine Glucose (UA) (Negative) Urine Ketones (Negative) Urine Occult Blood (Negative) Urine Nitrite (Negative) Urine Bilirubin (Negative) Urine Urobilinogen (0.2-1.0) Ur Leukocyte Esterase (Negative) Urine RBC (0-5) /hpf Urine WBC (0-5) /hpf Ur Epithelial Cells (0-5) /hpf Urine Bacteria (FEW) /hpf Urine Mucus (FEW) /hpf 10/24/17 10/24/17 10/24/17 Range/Units 11:00 11:05 11:15 WBC (4.23-9.07) K/mm3 RBC (4.63-6.08) M/mm3 Hgb (13.7-17.5) gm/L Hct (40.1-51.0) % MCV (79.0-92.2) fl MCH (25.7-32.2) pg MCHC (32.2-35.5) g/dl RDW Std Deviation (35.1-43.9) fL Plt Count (163-337) K/mm3 MPV (9.4-12.3) fl Neutrophils % (Manual) (40-60) % Band Neutrophils % (0-10) % Lymphocytes % (Manual) (20-40) % Atypical Lymphs % % Monocytes % (Manual) (2-10) % Eosinophils % (Manual) (0.8-7.0) % Basophils % (Manual) (0.2-1.2) Platelet Estimate RBC Morph Comment PT (9.5-12.1) SECONDS INR APTT (24-31) SECONDS D-Dimer, Quantitative (0.19-0.50) mg/L Puncture Site Rt radial ABG pH 7.41 (7.35-7.45) ABG pCO2 36.0 (35.0-45.0) mmHg ABG pO2 65.0 L (80.0-100.0) mmHg ABG HCO3 22.1 (22.0-26.0) meq/L ABG O2 Saturation 91.2 L (96.0-97.0) % ABG Base Excess -1.6 (-2-2.0) Brandon Test Positive A-a Gradient 25 mmHg O2 Delivery Device Room air FiO2 21.00 (21.00-100.00) % Sodium (136-145) mEq/L Potassium (3.5-5.1) mEq/L Chloride (98-107) mEq/L Carbon Dioxide (21-32) mEq/L Anion Gap (5-15) BUN (7-18) mg/dL Creatinine (0.7-1.3) mg/dL Est Cr Clr Drug Dosing mL/min Estimated GFR (MDRD) (>60) mL/min BUN/Creatinine Ratio (14-18) Glucose (83-115) mg/dL POC Glucose (83-110) mg/dL Lactic Acid 0.5 (0.4-2.0) mmol/L Calcium (8.5-10.1) mg/dL Magnesium (1.8-2.4) mg/dl Troponin I (0.00-0.056) ng/mL NT-Pro-B Natriuret Pep (0-450) pg/mL Urine Color Yellow (Yellow) Urine Appearance Clear (Clear) Urine pH 7.0 (5.0-8.0) Ur Specific [place] 1.020 (1.005-1.030) Urine Protein Negative (Negative) Urine Glucose (UA) Negative (Negative) Urine Ketones Trace H (Negative) Urine Occult Blood Negative (Negative) Urine Nitrite Negative (Negative) Urine Bilirubin Negative (Negative) Urine Urobilinogen 1.0 (0.2-1.0) Ur Leukocyte Esterase Negative (Negative) Urine RBC Not seen (0-5) /hpf Urine WBC 0-5 (0-5) /hpf Ur Epithelial Cells 0-5 (0-5) /hpf Urine Bacteria Few (FEW) /hpf Urine Mucus Not seen (FEW) /hpf 10/24/17 10/24/17 Range/Units 12:20 16:52 WBC (4.23-9.07) K/mm3 RBC (4.63-6.08) M/mm3 Hgb (13.7-17.5) gm/L Hct (40.1-51.0) % MCV (79.0-92.2) fl MCH (25.7-32.2) pg MCHC (32.2-35.5) g/dl RDW Std Deviation (35.1-43.9) fL Plt Count (163-337) K/mm3 MPV (9.4-12.3) fl Neutrophils % (Manual) (40-60) % Band Neutrophils % (0-10) % Lymphocytes % (Manual) (20-40) % Atypical Lymphs % % Monocytes % (Manual) (2-10) % Eosinophils % (Manual) (0.8-7.0) % Basophils % (Manual) (0.2-1.2) Platelet Estimate RBC Morph Comment PT (9.5-12.1) SECONDS INR APTT (24-31) SECONDS D-Dimer, Quantitative (0.19-0.50) mg/L Puncture Site ABG pH (7.35-7.45) ABG pCO2 (35.0-45.0) mmHg ABG pO2 (80.0-100.0) mmHg ABG HCO3 (22.0-26.0) meq/L ABG O2 Saturation (96.0-97.0) % ABG Base Excess (-2-2.0) Brandon Test A-a Gradient mmHg O2 Delivery Device FiO2 (21.00-100.00) % Sodium (136-145) mEq/L Potassium (3.5-5.1) mEq/L Chloride (98-107) mEq/L Carbon Dioxide (21-32) mEq/L Anion Gap (5-15) BUN (7-18) mg/dL Creatinine (0.7-1.3) mg/dL Est Cr Clr Drug Dosing mL/min Estimated GFR (MDRD) (>60) mL/min BUN/Creatinine Ratio (14-18) Glucose (83-115) mg/dL POC Glucose 122 H (83-110) mg/dL Lactic Acid (0.4-2.0) mmol/L Calcium (8.5-10.1) mg/dL Magnesium (1.8-2.4) mg/dl Troponin I 0.111 H* (0.00-0.056) ng/mL NT-Pro-B Natriuret Pep (0-450) pg/mL Urine Color (Yellow) Urine Appearance (Clear) Urine pH (5.0-8.0) Ur Specific [place] (1.005-1.030) Urine Protein (Negative) Urine Glucose (UA) (Negative) Urine Ketones (Negative) Urine Occult Blood (Negative) Urine Nitrite (Negative) Urine Bilirubin (Negative) Urine Urobilinogen (0.2-1.0) Ur Leukocyte Esterase (Negative) Urine RBC (0-5) /hpf Urine WBC (0-5) /hpf Ur Epithelial Cells (0-5) /hpf Urine Bacteria (FEW) /hpf Urine Mucus (FEW) /hpf Result Diagrams: 10/25/17 06:37 10/25/17 06:37 EKG INTERPRETATION EKG Date: 10/24/17 Time: 12:13 Rhythm: Other [place]: LAD-Left [place] Deviation QRS: LBBB Problem List Initiated/Reviewed/Updated: Yes Orders Last 24hrs: Active Orders 24 hr Category Date Time Status Admission Status [Patient Status] [ADT] Routine ADT 10/24/17 15:56 Active Blood Glucose Check, Bedside [RC] 08,17 Care 10/24/17 16:58 Active Height and Weight [RC] 04 Care 10/24/17 16:50 Active Intake and Output [RC] ,16 Care 10/24/17 16:50 Active Oxygen Therapy [RC] PRN Care 10/24/17 16:50 Active Pulse Oximetry [RC] PRN Care 10/24/17 16:50 Active RT Aerosol Therapy [RC] .PRN Care 10/24/17 16:52 Active Up With Assistance [RC] ASDIRECTED Care 10/24/17 16:50 Active Up ad Suzanne [RC] ASDIRECTED Care 10/24/17 16:50 Active VTE/DVT Education [RC] PER UNIT ROUTINE Care 10/24/17 16:50 Active Vital Signs [RC] Q4HR Care 10/24/17 16:50 Active Consult to Case Management [CONS] Routine Cons 10/24/17 16:50 Active Consult to Retail Sales Clerk [CONS] Routine Cons 10/24/17 16:50 Active Consult to Spiritual Care [CONS] Routine Cons 10/24/17 16:50 Active OT Evaluation and Treatment [CONS] Routine Cons 10/24/17 16:50 Active PT Evaluation and Treatment [CONS] Routine Cons 10/24/17 16:50 Active Heart Healthy Diet [DIET] Diet 10/24/17 Dinner Active BASIC METABOLIC PANEL,BMP [CHEM] AM Lab 10/25/17 05:11 Ordered C-REACTIVE PROTEIN [CHEM] AM Lab 10/25/17 05:11 Ordered CBC WITH AUTO DIFF [HEME] AM Lab 10/25/17 05:11 Ordered CKMB [CHEM] AM Lab 10/25/17 05:11 Ordered CKMB [CHEM] Routine Lab 10/24/17 21:00 Ordered CULTURE BLOOD [BC] Stat Lab 10/24/17 11:00 Received CULTURE BLOOD [BC] Stat Lab 10/24/17 11:10 Received MAGNESIUM [CHEM] AM Lab 10/25/17 05:11 Ordered METH-RESIST S.AUR,MRSA BY PCR [MOLEC] Routine Lab 10/24/17 18:39 Received TROPONIN I [CHEM] AM Lab 10/25/17 05:11 Ordered TROPONIN I [CHEM] Routine Lab 10/24/17 21:00 Ordered UA W/MICROSCOPIC [URIN] Stat Lab 10/24/17 11:15 Ordered Acetaminophen [Tylenol] Med 10/24/17 19:12 Ordered 325 mg PO Q4H PRN Acetaminophen [Tylenol] Med 10/24/17 16:50 Active 650 mg PO Q4H PRN Acetaminophen/HYDROcodone [[place] 325-5 MG] Med 10/24/17 16:50 Active 1 tab PO Q4H PRN Acyclovir [Zovirax 5% Oint] Med 10/24/17 16:46 Pending 0 gm TOP 5XDAY PRN Albuterol Med 10/24/17 16:46 Pending 2.5 mg INH Q4H PRN Albuterol/Ipratropium [DuoNeb 3.0-0.5 MG/3 ML] Med 10/24/17 16:50 Active 3 ml NEB Q4H PRN Azithromycin [Zithromax] 500 mg Med 10/24/17 19:13 Ordered Sodium Chloride 0.9% [Normal Saline] 250 ml IV ONETIME Baclofen [Baclofen] Med 10/24/17 16:46 Pending 10 mg PO DAILY PRN Bisacodyl [Dulcolax] Med 10/24/17 16:50 Active 5 mg PO DAILY PRN Carbamide Peroxide [Ear Drops] Med 10/24/17 16:46 Pending 5 - 10 drop EARBOTH DAILY PRN Cholecalciferol (Vitamin D3) [Vitamin D3] Med 10/25/17 09:00 Pending 2 tab PO DAILY Divalproex Sodium Med 10/24/17 21:00 Pending 2 tab PO BEDTIME Divalproex Sodium [Divalproex Sodium] Med 10/25/17 09:00 Pending 250 mg PO DAILY Docusate Sodium [Colace] Med 10/24/17 16:50 Active 100 mg PO BID PRN Docusate Sodium/Sennosides [Senna Plus] Med 10/24/17 16:50 Active 1 tab PO BID PRN Donepezil [Aricept] Med 10/24/17 21:00 Pending 10 mg PO BEDTIME Famotidine [Famotidine] Med 10/25/17 09:00 Pending 20 mg PO DAILY Fluticasone/Sod Chl/Sod Bicarb [Ticanase Kit] Med 10/24/17 21:00 Pending 1 spray NASBOTH BID HYDROmorphone [Dilaudid] Med 10/24/17 16:50 Active 0.25 mg IVPUSH Q2H PRN Hydrocodone/Acetaminophen Med 10/24/17 19:12 Ordered 1 tab PO Q4HR PRN LORazepam [Ativan] Med 10/24/17 16:50 Active 0.25 mg IV Q6H PRN LORazepam [Ativan] Med 10/24/17 16:48 Active 2 mg IVPUSH Q4H PRN LORazepam [LORazepam] Med 10/24/17 19:12 Ordered 0.5 mg PO ASDIRECTED PRN Lactase Med 10/24/17 21:00 Pending 1.5 tab PO BID Levothyroxine [Levothyroxine] Med 10/25/17 06:00 Pending 25 mcg PO ACBREAKFAST Magnesium Hydroxide [Milk of Magnesia] Med 10/24/17 19:12 Ordered 15 - 30 ml PO DAILY PRN Magnesium Rep Pharmacy to Dose [Pharmacy to Dose - Med 10/24/17 17:00 Pending Magnesium Replacement] 1 dose .XX ASDIRECTED Memantine HCl Med 10/25/17 09:00 Pending 21 mg PO DAILY Metoprolol Tartrate [Lopressor] Med 10/24/17 16:48 Active 5 mg IVPUSH Q4H PRN Multivit-Min/FA/Lycopene/Lut [Certavite Sr-Antioxidant Med 10/25/17 09:00 Pending Tab] 1 tab PO DAILY Mupirocin Oint [Bactroban Oint] Med 10/24/17 16:46 Pending 1 applic TOP BID PRN Non-Formulary Medication [NF Drug] Med 10/24/17 19:12 Ordered 2 - 4 tsp PO ASDIRECTED PRN Ondansetron [Zofran] Med 10/24/17 16:50 Active 4 mg IV Q6H PRN PEG 3350/Na Sulf,Bicarb,Cl/KCl [Peg 3350 Electrolyte] Med 10/25/17 09:00 Pending 1 cap PO DAILY Pantoprazole Sodium [Pantoprazole Sodium] Med 10/25/17 09:00 Pending 40 mg PO DAILY Polyethylene Glycol 3350 [MiraLAX] Med 10/24/17 16:50 Pending 17 gm PO DAILY PRN Potassium Rep Pharmacy to Dose [Pharmacy to Dose - Med 10/24/17 17:00 Pending Potassium Replacement] 1 dose .XX ASDIRECTED Promethazine [Phenergan] 6.25 mg Med 10/24/17 16:50 Active Sodium Chloride 0.9% [Normal Saline] 50 ml IV Q6H Simvastatin [Zocor] Med 10/24/17 21:00 Pending 10 mg PO BEDTIME SitaGLIPtin Med 10/25/17 09:00 Pending 50 mg PO DAILY Sodium Chloride 0.9% [Normal Saline] 1,000 ml Med 10/24/17 19:15 Ordered IV ASDIRECTED Sodium Chloride 0.9% [Saline Flush] Med 10/24/17 11:02 Active 10 ml FLUSH ONETIME PRN Sodium Chloride/Sodium Bicarb [[place]asa Mist Saline [place]] Med 10/24/17 16:46 Pending 1 spray NASBOTH DAILY PRN Solifenacin Succinate [Vesicare] Med 10/24/17 20:00 Pending 10 mg PO 2000 Venlafaxine Med 10/24/17 17:00 Pending 150 mg PO 1700 hydrALAZINE [Apresoline] Med 10/24/17 16:48 Active 20 mg IVPUSH Q4H PRN risperiDONE [risperiDONE] Med 10/24/17 21:00 Pending 2 mg PO BID Blood Culture x2 Reflex Set [OM.PC] Stat Oth 10/24/17 10:31 Ordered Resuscitation Status Routine Resus Stat 10/24/17 16:50 Ordered EKG 12 Lead [EK] Stat Ther 10/24/17 10:06 Ordered Medication Orders Acetaminophen (Tylenol) 650 mg PO Q4H PRN PRN Reason: Pain (Mild 1-3)/fever Hydrocodone Bitart/Acetaminophen ([place] 325-5 Mg) 1 tab PO Q4H PRN PRN Reason: Pain (moderate 4-6) Acyclovir (Zovirax 5% Oint) 0 gm TOP 5XDAY PRN PRN Reason: coldsore Albuterol/Ipratropium (Duoneb 3.0-0.5 Mg/3 Ml) 3 ml NEB Q4H PRN PRN Reason: Shortness Of Breath/wheezing Bisacodyl (Dulcolax) 5 mg PO DAILY PRN PRN Reason: Constipation Docusate Sodium (Colace) 100 mg PO BID PRN PRN Reason: Constipation Hydralazine HCl (Apresoline) 20 mg IVPUSH Q4H PRN PRN Reason: Hypertension Hydromorphone HCl (Dilaudid) 0.25 mg IVPUSH Q2H PRN PRN Reason: Pain (severe 7-10) Promethazine HCl 6.25 mg/ (Sodium Chloride) 50.25 mls @ 100 mls/hr IV Q6H PRN PRN Reason: Nausea/Vomiting Azithromycin 500 mg/ Sodium (Chloride) 250 mls @ 250 mls/hr IV ONETIME ONE Stop: 10/24/17 20:12 Sodium Chloride (Normal Saline) 1,000 mls @ 80 mls/hr IV ASDIRECTED [facility] Lorazepam (Ativan) 2 mg IVPUSH Q4H PRN PRN Reason: Seizures Lorazepam (Ativan) 0.25 mg IV Q6H PRN PRN Reason: Anxiety Magnesium Sulfate (Pharmacy To Dose - Magnesium Replacement) 1 dose .XX ASDIRECTED [facility] Metoprolol Tartrate (Lopressor) 5 mg IVPUSH Q4H PRN PRN Reason: Tachycardia Non-Formulary Medication (Albuterol) 2.5 mg INH Q4H PRN PRN Reason: Shortness of Breath Non-Formulary Medication (Baclofen [Baclofen]) 10 mg PO DAILY PRN PRN Reason: Pain Non-Formulary Medication (Carbamide Peroxide [Ear Drops]) 5 - 10 drop EARBOTH DAILY PRN PRN Reason: asdirected Non-Formulary Medication (Cholecalciferol (Vitamin D3) [Vitamin D3]) 2 tab PO DAILY KALIE Non-Formulary Medication (Divalproex Sodium) 2 tab PO BEDTIME KALIE Non-Formulary Medication (Divalproex Sodium [Divalproex Sodium]) 250 mg PO DAILY KALIE Non-Formulary Medication (Donepezil [Aricept]) 10 mg PO BEDTIME KALIE Non-Formulary Medication (Famotidine [Famotidine]) 20 mg PO DAILY KALIE Non-Formulary Medication (Fluticasone/Sod Chl/Sod Bicarb [Ticanase Kit]) 1 spray NASBOTH BID KALIE Non-Formulary Medication (Lactase) 1.5 tab PO BID KALIE Non-Formulary Medication (Levothyroxine [Levothyroxine]) 25 mcg PO ACBREAKFAST KALIE Non-Formulary Medication (Memantine Hcl) 21 mg PO DAILY KALIE Non-Formulary Medication (Multivit-Min/Fa/Lycopene/Lut [Certavite Sr- Antioxidant Tab]) 1 tab PO DAILY KALIE Non-Formulary Medication (Mupirocin Oint [Bactroban Oint]) 1 applic TOP BID PRN PRN Reason: as directed Non-Formulary Medication (Pantoprazole Sodium [Pantoprazole Sodium]) 40 mg PO DAILY KALIE Non-Formulary Medication (Peg 3350/Na Sulf,Bicarb,Cl/Kcl [Peg 3350 Electrolyte] ) 1 cap PO DAILY KALIE Non-Formulary Medication (Risperidone [Risperidone]) 2 mg PO BID KALIE Non-Formulary Medication (Simvastatin [Zocor]) 10 mg PO BEDTIME KALIE Non-Formulary Medication (Sitagliptin) 50 mg PO DAILY KALIE Non-Formulary Medication (Sodium Chloride/Sodium Bicarb [Nasa Mist Saline [place]] ) 1 spray NASBOTH DAILY PRN PRN Reason: as directed Non-Formulary Medication (Solifenacin Succinate [Vesicare]) 10 mg PO 2000 KALIE Non-Formulary Medication (Venlafaxine) 150 mg PO 1700 KALIE Non-Formulary Medication (Acetaminophen [Tylenol]) 325 mg PO Q4H PRN PRN Reason: Pain Non-Formulary Medication (Hydrocodone/Acetaminophen) 1 tab PO Q4HR PRN PRN Reason: Pain (moderate 4-6) Non-Formulary Medication (Lorazepam [Lorazepam]) 0.5 mg PO ASDIRECTED PRN PRN Reason: Anxiety Non-Formulary Medication (Magnesium Hydroxide [Milk Of Magnesia]) 15 - 30 ml PO DAILY PRN PRN Reason: Constipation Non-Formulary Medication (Non-Formulary Medication [Nf Drug]) 2 - 4 tsp PO ASDIRECTED PRN PRN Reason: Indigestion Ondansetron HCl (Zofran) 4 mg IV Q6H PRN PRN Reason: Nausea/Vomiting Polyethylene Glycol (Miralax) 17 gm PO DAILY PRN PRN Reason: Constipation Potassium Chloride (Pharmacy To Dose - Potassium Replacement) 1 dose .XX ASDIRECTED KALIE Senna/Docusate Sodium (Senna Plus) 1 tab PO BID PRN PRN Reason: Constipation Sodium Chloride (Saline Flush) 10 ml FLUSH ONETIME PRN PRN Reason: IV FLUSH Last Admin: 10/24/17 12:39 Dose: 10 ml Assessment/Plan Comment:: Assessment/Plan: Acute: Generalized Weakness - Unclear in etiology but maybe 2/2 metabolic: Hypoxia (pO2 is 65); E-lytes abnormality: Mg level is 1.6 and Na is 134 - Pos troponin levels - UA, Chest CTA, CXR- all negative - CRP, Vit D level and TFT in AM - PT/OT consult Positive Troponin Levels - Cannot r/o ACS; CAD/HLD/HTN and HF - Serial Troponin Level URI/Bronchitis - IV Azithromycin - Sputum Cx, Mycoplasma/Strep pneumonia Ag tests, and Respiratory Viral Panel Elevated D-Dimer - 2.34 - Chest CTA negative E-lytes Abnormality - Mg level is 1.6 and Na is 134 - Replete and monitor Chronic: AR CAD HF with Unknown EF HLD HTN PR Urinary Incontinence Back Pain Alzheimer's Disease Schizophrenia DM2 Anemia Plan: Admit to the floor Resume Home Meds Routine AM Labs High Fall Risk Lipid panel PT/OT consult SW/CM for d/c planning Additional orders as above Code status: 1
[2017-10-24] MEDS: Sodium Chloride 0.9% 1,000 ML IV SCH (20:05)
[2017-10-24] MEDS ORDERED: Donepezil 10 MG Tab **OWN MED PO SCH (21:00)
[2017-10-24] MEDS ORDERED: Venlafaxine 75 MG Cap.ER **OWN MED PO SCH (23:15)
[2017-10-24] MEDS ORDERED: Simvastatin 10 MG Tab **OWN MED PO SCH (23:15)
[2017-10-24] MEDS ORDERED: VESICARE 10 MG PO SCH (23:15)
[2017-10-24] MEDS: LACTASE PO SCH (23:27)
[2017-10-24] MEDS: FLUTICASONE TOP SCH (23:28)
[2017-10-24] MEDS: RISPERIDONE 2 MG PO SCH (23:28)
[2017-10-24] MEDS: CHOLECALCIFEROL 1000 UNIT PO SCH (23:29)
[2017-10-24] MEDS ORDERED: DIVALPROEX 250 MG PO SCH (23:45)
[2017-10-25] MEDS: Albuterol/Ipratropium 3.0-0.5 MG/3 ML Neb Soln NEB PRN ×3 (05:35→13:54)
[2017-10-25] MEDS: Sodium Chloride 0.9% 1,000 ML IV SCH ×2 (09:10→22:38)
[2017-10-25] MEDS ORDERED: [UNRECOGNIZED DRUG - OTHER] PO SCH (09:45)
[2017-10-25] MEDS: FLUTICASONE TOP SCH ×2 (10:01→20:33)
[2017-10-25] MEDS: Multivitamins,Therapeutic Tab PO SCH (10:02)
[2017-10-25] MEDS ORDERED: RISPERIDONE 2 MG PO SCH (10:04)
[2017-10-25] MEDS ORDERED: FAMOTIDINE 20 MG PO SCH (10:15)
[2017-10-25] MEDS ORDERED: LEVOTHYROXINE 25 MCG PO SCH (10:15)
[2017-10-25] MEDS ORDERED: PANTOPRAZOLE 40 MG PO SCH (10:15)
[2017-10-25] MEDS ORDERED: SITAGLIPTIN 50 MG PO SCH (10:15)
--- NOTE | 2017-10-25 10:23 | CR ---
Chest: Frontal view of the chest was obtained. Comparison: Prior chest CT exam of 10/24/17 and chest x-ray also of 10/24/17. Heart is enlarged. Tortuous thoracic aorta is seen. Mild atelectasis is seen within the right lower lung. Minimal scarring is seen within the left mid to lower lung. Lungs otherwise are clear. Prior sternotomy is noted. Bony structures are grossly intact. Impression: 1. Slight atelectasis within the right lung base. 2. Stable cardiomegaly and other stable findings. Diagnostic code #2
[2017-10-25] MEDS ORDERED: Pantoprazole 40 MG Tab.CR PO SCH (10:30)
[2017-10-25] MEDS: LACTASE PO SCH ×3 (10:59→20:14)
[2017-10-25] MEDS: MEMANTINE HCL 21 MG PO SCH (10:59)
[2017-10-25] MEDS: Alogliptin 12.5 MG TABLET PO SCH (11:00)
[2017-10-25] MEDS: Venlafaxine 75 MG Cap.ER PO SCH ×2 (11:00→16:36)
[2017-10-25] MEDS: Polyethylene Glycol 3350 Powder 17 GM Packet PO SCH (11:00)
[2017-10-25] MEDS: Levothyroxine 25 MCG Tab PO SCH (11:00)
[2017-10-25] MEDS ORDERED: Caffeine 200 MG Tab PO ONE (11:00)
[2017-10-25] MEDS ORDERED: cefTRIAXone 1 GM in Sodium Chloride 0.9% 100 ML IV SCH (11:00)
[2017-10-25] MEDS ORDERED: Azithromycin 500 MG AdvVial IV SCH (11:00)
[2017-10-25] MEDS: Famotidine 20 MG Tab PO SCH (11:00)
[2017-10-25] MEDS: Divalproex Sodium Delayed-Release 250 MG Tab.CR PO SCH (11:01)
[2017-10-25] MEDS: RISPERIDONE 2 MG PO SCH (11:05)
--- NOTE | 2017-10-25 12:05 | PCM.PN ---
- General Info Date of Service: 10/25/17 Admission Dx/Problem (Free Text): Admission Diagnosis/Problem Admission Diagnosis/Problem Weakness Subjective Update: Follow Up Functional Status: Reports: Pain Controlled, Tolerating Diet, Urinating - Review of Systems General: Reports: Chills. Denies: Fever HEENT: Reports: No Symptoms Pulmonary: Reports: Shortness of Breath, Cough Gastrointestinal: Reports: No Symptoms Genitourinary: Reports: No Symptoms Skin: Reports: Cyanosis, Diaphoresis. Denies: Pallor, Rash Neurological: Reports: Confusion (baseline), Difficulty Walking, Weakness, Gait Disturbance Psychiatric: Reports: Agitation. 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 He was put on 6L NC until I came to evaluate him this morning. His repeat CRX shows slight atelectasis within the right lung base. He is afebrile w /o leukocytosis. No other acute issues reported. - Patient Data Vitals - Most Recent: Last Vital Signs Temp 36.6 C 10/25/17 09:44 Pulse 69 10/25/17 09:28 Resp 32 H 10/25/17 09:44 BP 101/67 10/25/17 09:28 Pulse Ox 93 L 10/25/17 09:28 Weight - Most Recent: 67.132 kg I&O - Last 24 Hours: Intake & Output 10/24/17 10/25/17 10/25/17 22:59 06:59 14:59 Intake Total 120 862 Balance 120 862 Lab Results Last 24 Hours: Laboratory Results - last 24 hr 10/24/17 10/24/17 10/24/17 Range/Units 12:20 16:52 18:39 WBC (4.23-9.07) K/mm3 RBC (4.63-6.08) M/mm3 Hgb (13.7-17.5) gm/L Hct (40.1-51.0) % MCV (79.0-92.2) fl MCH (25.7-32.2) pg MCHC (32.2-35.5) g/dl RDW Std Deviation (35.1-43.9) fL Plt Count (163-337) K/mm3 MPV (9.4-12.3) fl Neut % (Auto) (34.0-67.9) % Lymph % (Auto) (21.8-53.1) % [place] % (Auto) (5.3-12.2) % Eos % (Auto) (0.8-7.0) Baso % (Auto) (0.1-1.2) % Neut # (Auto) (1.78-5.38) K/mm3 Lymph # (Auto) (1.32-3.57) K/mm3 [place] # (Auto) (0.30-0.82) K/mm3 Eos # (Auto) (0.04-0.54) K/mm3 Baso # (Auto) (0.01-0.08) K/mm3 Manual Slide Review Sodium (136-145) mEq/L Potassium (3.5-5.1) mEq/L Chloride (98-107) mEq/L Carbon Dioxide (21-32) mEq/L Anion Gap (5-15) BUN (7-18) mg/dL Creatinine (0.7-1.3) mg/dL Est Cr Clr Drug Dosing mL/min Estimated GFR (MDRD) (>60) mL/min BUN/Creatinine Ratio (14-18) Glucose (83-115) mg/dL POC Glucose 122 H (83-110) mg/dL Calcium (8.5-10.1) mg/dL Magnesium (1.8-2.4) mg/dl CK-MB (CK-2) (0-3.6) ng/ml Troponin I 0.111 H* (0.00-0.056) ng/mL C-Reactive Protein (<1.0) mg/dL Triglycerides (<150) mg/dL Cholesterol (<200) mg/dL LDL Cholesterol Direct (<100) mg/dL HDL Cholesterol (40-59) mg/dL Free T4 (0.76-1.46) ng/dL TSH 3rd Generation (0.358-3.74) uIU/mL Mycoplasma pneumon IgM (NEGATIVE) MRSA (PCR) Negative 10/24/17 10/25/17 10/25/17 Range/Units 21:00 06:37 06:37 WBC 6.81 (4.23-9.07) K/mm3 RBC 4.17 L (4.63-6.08) M/mm3 Hgb 13.8 (13.7-17.5) gm/L Hct 40.8 (40.1-51.0) % MCV 97.8 H (79.0-92.2) fl MCH 33.1 H (25.7-32.2) pg MCHC 33.8 (32.2-35.5) g/dl RDW Std Deviation 50.9 H (35.1-43.9) fL Plt Count 157 L (163-337) K/mm3 MPV 11.3 (9.4-12.3) fl Neut % (Auto) 73.4 H (34.0-67.9) % Lymph % (Auto) 7.3 L (21.8-53.1) % [place] % (Auto) 18.9 H (5.3-12.2) % Eos % (Auto) 0 L (0.8-7.0) Baso % (Auto) 0.1 (0.1-1.2) % Neut # (Auto) 4.99 (1.78-5.38) K/mm3 Lymph # (Auto) 0.50 L (1.32-3.57) K/mm3 [place] # (Auto) 1.29 H (0.30-0.82) K/mm3 Eos # (Auto) 0.00 L (0.04-0.54) K/mm3 Baso # (Auto) 0.01 (0.01-0.08) K/mm3 Manual Slide Review Abnormal smear Sodium 132 L (136-145) mEq/L Potassium 4.1 (3.5-5.1) mEq/L Chloride 100 (98-107) mEq/L Carbon Dioxide 22 (21-32) mEq/L Anion Gap 14.1 (5-15) BUN 20 H (7-18) mg/dL Creatinine 1.4 H (0.7-1.3) mg/dL Est Cr Clr Drug Dosing 37.83 mL/min Estimated GFR (MDRD) 49 (>60) mL/min BUN/Creatinine Ratio 14.3 (14-18) Glucose 149 H (83-115) mg/dL POC Glucose (83-110) mg/dL Calcium 8.9 (8.5-10.1) mg/dL Magnesium 1.9 (1.8-2.4) mg/dl CK-MB (CK-2) 1.0 0.9 (0-3.6) ng/ml Troponin I 0.067 H* 0.098 H* (0.00-0.056) ng/mL C-Reactive Protein 16.5 H* (<1.0) mg/dL Triglycerides 36 (<150) mg/dL Cholesterol 109 (<200) mg/dL LDL Cholesterol Direct 42 (<100) mg/dL HDL Cholesterol 56.0 (40-59) mg/dL Free T4 0.91 (0.76-1.46) ng/dL TSH 3rd Generation 1.260 (0.358-3.74) uIU/mL Mycoplasma pneumon IgM (NEGATIVE) MRSA (PCR) 10/25/17 10/25/17 Range/Units 06:37 09:24 WBC (4.23-9.07) K/mm3 RBC (4.63-6.08) M/mm3 Hgb (13.7-17.5) gm/L Hct (40.1-51.0) % MCV (79.0-92.2) fl MCH (25.7-32.2) pg MCHC (32.2-35.5) g/dl RDW Std Deviation (35.1-43.9) fL Plt Count (163-337) K/mm3 MPV (9.4-12.3) fl Neut % (Auto) (34.0-67.9) % Lymph % (Auto) (21.8-53.1) % [place] % (Auto) (5.3-12.2) % Eos % (Auto) (0.8-7.0) Baso % (Auto) (0.1-1.2) % Neut # (Auto) (1.78-5.38) K/mm3 Lymph # (Auto) (1.32-3.57) K/mm3 [place] # (Auto) (0.30-0.82) K/mm3 Eos # (Auto) (0.04-0.54) K/mm3 Baso # (Auto) (0.01-0.08) K/mm3 Manual Slide Review Sodium (136-145) mEq/L Potassium (3.5-5.1) mEq/L Chloride (98-107) mEq/L Carbon Dioxide (21-32) mEq/L Anion Gap (5-15) BUN (7-18) mg/dL Creatinine (0.7-1.3) mg/dL Est Cr Clr Drug Dosing mL/min Estimated GFR (MDRD) (>60) mL/min BUN/Creatinine Ratio (14-18) Glucose (83-115) mg/dL POC Glucose 142 H (83-110) mg/dL Calcium (8.5-10.1) mg/dL Magnesium (1.8-2.4) mg/dl CK-MB (CK-2) (0-3.6) ng/ml Troponin I (0.00-0.056) ng/mL C-Reactive Protein (<1.0) mg/dL Triglycerides (<150) mg/dL Cholesterol (<200) mg/dL LDL Cholesterol Direct (<100) mg/dL HDL Cholesterol (40-59) mg/dL Free T4 (0.76-1.46) ng/dL TSH 3rd Generation (0.358-3.74) uIU/mL Mycoplasma pneumon IgM Negative (NEGATIVE) MRSA (PCR) Adarsh Results Last 24 Hours: Microbiology 10/24/17 11:10 Aerobic Blood Culture - Preliminary Blood - Venous NO GROWTH AFTER 1 DAY Anaerobic Blood Culture - Preliminary NO GROWTH AFTER 1 DAY 10/24/17 11:00 Aerobic Blood Culture - Preliminary Blood - Venous - Lab Draw NO GROWTH AFTER 1 DAY Anaerobic Blood Culture - Preliminary NO GROWTH AFTER 1 DAY Med Orders - Current: Current Medications Acetaminophen (Tylenol) 650 mg PO Q4H PRN PRN Reason: Pain (Mild 1-3)/fever Hydrocodone Bitart/Acetaminophen ([place] 325-5 Mg) 1 tab PO Q4H PRN PRN Reason: Pain (moderate 4-6) Acyclovir (Zovirax 5% Oint) 0 gm TOP 5XDAY PRN PRN Reason: coldsore Albuterol (Proventil Neb Soln) 2.5 mg INH Q4H PRN PRN Reason: Shortness of Breath Albuterol/Ipratropium (Duoneb 3.0-0.5 Mg/3 Ml) 3 ml NEB Q4H PRN PRN Reason: Shortness Of Breath/wheezing Last Admin: 10/25/17 09:25 Dose: 3 ml Alogliptin Benzoate (Alogliptin) 12.5 mg PO DAILY KALIE Last Admin: 10/25/17 11:00 Dose: 12.5 mg Baclofen (Lioresal) 10 mg PO DAILY PRN PRN Reason: Pain Bisacodyl (Dulcolax) 5 mg PO DAILY PRN PRN Reason: Constipation Carbamide Perox/Anhydrous Glycerin (Debrox 6.5% Otic Soln) 5 - 10 ml EARBOTH DAILY PRN PRN Reason: asdirected Cholecalciferol (Vitamin D3) 2,000 units PO BEDTIME [facility] Last Admin: 10/24/17 23:29 Dose: 2,000 units Divalproex Sodium (Divalproex Sodium) 250 mg PO DAILY [facility] Last Admin: 10/25/17 11:01 Dose: 250 mg Divalproex Sodium (Divalproex Sodium) 500 mg PO BEDTIME [facility] Docusate Sodium (Colace) 100 mg PO BID PRN PRN Reason: Constipation Donepezil HCl (Aricept) 10 mg PO BEDTIME [facility] Famotidine (Pepcid) 20 mg PO DAILY [facility] Last Admin: 10/25/17 11:00 Dose: 20 mg Hydralazine HCl (Apresoline) 20 mg IVPUSH Q4H PRN PRN Reason: Hypertension Hydromorphone HCl (Dilaudid) 0.25 mg IVPUSH Q2H PRN PRN Reason: Pain (severe 7-10) Promethazine HCl 6.25 mg/ (Sodium Chloride) 50.25 mls @ 100 mls/hr IV Q6H PRN PRN Reason: Nausea/Vomiting Sodium Chloride (Normal Saline) 1,000 mls @ 80 mls/hr IV ASDIRECTED [facility] Last Admin: 10/25/17 09:10 Dose: 80 mls/hr Ceftriaxone Sodium 1 gm/ (Sodium Chloride) 100 mls @ 200 mls/hr IV Q24H [facility] Last Admin: 10/25/17 11:13 Dose: 200 mls/hr Azithromycin 500 mg/ Sodium (Chloride) 250 mls @ 250 mls/hr IV Q24H [facility] Levothyroxine Sodium (Levothyroxine) 25 mcg PO ACBREAKFAST [facility] Last Admin: 10/25/17 11:00 Dose: 25 mcg Lorazepam (Ativan) 2 mg IVPUSH Q4H PRN PRN Reason: Seizures Lorazepam (Ativan) 0.25 mg IV Q6H PRN PRN Reason: Anxiety Magnesium Hydroxide (Milk Of Magnesia) 15 - 30 ml PO DAILY PRN PRN Reason: Constipation Magnesium Sulfate (Pharmacy To Dose - Magnesium Replacement) 1 dose .XX ASDIRECTED [facility] Metoprolol Tartrate (Lopressor) 5 mg IVPUSH Q4H PRN PRN Reason: Tachycardia Multivitamins (Thera) 1 each PO DAILY [facility] Last Admin: 10/25/17 10:02 Dose: 1 each Mupirocin (Bactroban Oint) 0 gm TOP BID PRN PRN Reason: as directed TO PENIS Fluticasone Nasal (Belle Own Med) 0 each TOP BID [facility] Last Admin: 10/25/17 10:01 Dose: 1 each Ondansetron HCl (Zofran) 4 mg IV Q6H PRN PRN Reason: Nausea/Vomiting Pantoprazole Sodium (Protonix) 40 mg PO DAILY [facility] Last Admin: 10/25/17 11:01 Dose: 40 mg Memantine Hcl 21 Mg 0 each PO DAILY [facility] Last Admin: 10/25/17 10:59 Dose: 1 each Lactases 3000 Fcc (Units Own Med) 0 each PO BID [facility] Last Admin: 10/25/17 10:59 Dose: 1 each Polyethylene Glycol (Miralax) 17 gm PO DAILY [facility] Last Admin: 10/25/17 11:00 Dose: 17 gm Potassium Chloride (Pharmacy To Dose - Potassium Replacement) 1 dose .XX ASDIRECTED [facility] Risperidone (Risperidal) 2 mg PO BID [facility] Senna/Docusate Sodium (Senna Plus) 1 tab PO BID PRN PRN Reason: Constipation Simvastatin (Zocor) 10 mg PO DAILY@1700 [facility] Sodium Chloride (Saline Flush) 10 ml FLUSH ONETIME PRN PRN Reason: IV FLUSH Last Admin: 10/24/17 12:39 Dose: 10 ml Sodium Chloride ([place] Nasal Belle) 0 ml NASBOTH DAILY PRN PRN Reason: as directed Trospium (Sanctura) 20 mg PO BIDAC [facility] Venlafaxine HCl (Effexor Xr) 75 mg PO DAILY@1700 [facility] Venlafaxine HCl (Effexor Xr) 150 mg PO DAILY [facility] Last Admin: 10/25/17 11:00 Dose: 150 mg Discontinued Medications Azithromycin (Zithromax) 500 mg IV Q24H [facility] Caffeine (Caffeine) 100 mg PO ONETIME ONE Stop: 10/25/17 11:01 Last Admin: 10/25/17 11:14 Dose: 100 mg Donepezil HCl (Aricept) 10 mg PO BEDTIME [facility] Last Admin: 10/24/17 23:27 Dose: 10 mg Famotidine (Pepcid) 20 mg PO DAILY [facility] Last Admin: 10/25/17 11:06 Dose: Not Given Sodium Chloride (Normal Saline) 500 mls @ 1,000 mls/hr IV .BOLUS ONE Stop: 10/24/17 11:01 Last Admin: 10/24/17 10:49 Dose: 1,000 mls/hr Sodium Chloride (Normal Saline) 250 mls @ 80 mls/hr IV ASDIRECTED [facility] Last Admin: 10/24/17 13:34 Dose: 80 mls/hr Magnesium Sulfate 2 gm/ Premix 50 mls @ 50 mls/hr IV ONETIME STA Stop: 10/24/17 12:29 Last Admin: 10/24/17 12:01 Dose: 50 mls/hr Azithromycin 500 mg/ Sodium (Chloride) 250 mls @ 250 mls/hr IV ONETIME ONE Stop: 10/24/17 20:12 Last Admin: 10/24/17 20:05 Dose: 250 mls/hr Iopamidol (Isovue-370 (76%)) 50 ml IVPUSH ONETIME ONE Stop: 10/24/17 11:03 Last Admin: 10/24/17 12:38 Dose: 50 ml Iopamidol (Isovue-370 (76%)) 100 ml IVPUSH ONETIME ONE Stop: 10/24/17 11:03 Last Admin: 10/24/17 12:38 Dose: 50 ml Levothyroxine Sodium (Levothyroxine) 25 mcg PO ACBREAKFAST [facility] Last Admin: 10/25/17 11:05 Dose: Not Given Magnesium Oxide (Magnesium Oxide) 400 mg PO ONETIME ONE Stop: 10/24/17 18:01 Last Admin: 10/24/17 20:06 Dose: 400 mg Divalproex 250 Mg Er (Tab Own Med) 2 tab PO BEDTIME [facility] Last Admin: 10/24/17 23:55 Dose: 2 tab Lactases 3000 Fcc (Units Own Med) 0 tab PO BID [facility] Last Admin: 10/25/17 11:05 Dose: Not Given Risperidone 2 Mg (Own Med) 0 mg PO BID [facility] Last Admin: 10/25/17 11:05 Dose: Not Given Vesicare 10 Mg Own (Med) 0 mg PO BEDTIME [facility] Last Admin: 10/24/17 23:31 Dose: 10 mg Non-Formulary Medication (Acetaminophen [Tylenol]) 325 mg PO Q4H PRN PRN Reason: Pain Non-Formulary Medication (Non-Formulary Medication [Nf Drug]) 2 - 4 tsp PO ASDIRECTED PRN PRN Reason: Indigestion Pantoprazole Sodium (Protonix) 40 mg PO DAILY [facility] Last Admin: 10/25/17 11:06 Dose: Not Given Peg 3350 Electrolyte Powder For Oral Solution 0 each PO DAILY [facility] Last Admin: 10/25/17 11:05 Dose: Not Given Sitagliptin 50 Mg ( (Januvia)) 0 each PO DAILY [facility] Last Admin: 10/25/17 11:06 Dose: Not Given Risperidone 2 Mg (Own Med) 0 each PO BID [facility] Polyethylene Glycol (Miralax) 17 gm PO DAILY PRN PRN Reason: Constipation Simvastatin (Zocor) 10 mg PO DAILY@1700 [facility] Last Admin: 10/24/17 23:31 Dose: 10 mg Venlafaxine HCl (Effexor Xr) 75 mg PO DAILY@1700 [facility] Last Admin: 10/24/17 23:30 Dose: 75 mg - Exam General: Alert, Moderate Distress HEENT: Pupils Equal, Pupils Reactive, Mucous Membr. Moist/[place] Neck: Trachea Midline Lungs: Rhonchi, Other (tachypneic). No: Normal Respiratory Effort Cardiovascular: Regular Rate, Regular Rhythm GI/Abdominal Exam: Normal Bowel Sounds, Soft, Non-Tender, No Organomegaly, No Distention, No Abnormal Bruit (Male) Exam: Deferred Back Exam: Normal Inspection Extremities: Normal Inspection, Normal Range of Motion, Non-Tender, No Pedal Edema, Normal Capillary Refill Peripheral Pulses: 2+: Dorsalis Pedis (L), Dorsalis Pedis (R) Skin: Warm, Dry, Intact Neurological: No New Focal Deficit Psy/Mental Status: Alert, Anxious - Problem List Review Problem List Initiated/Reviewed/Updated: Yes - My Orders Last 24 Hours: My Active Orders 10/24/17 16:46 Acyclovir [Zovirax 5% Oint] 0 gm TOP 5XDAY PRN Albuterol [Proventil Neb Soln] 2.5 mg INH Q4H PRN Baclofen [Lioresal] 10 mg PO DAILY PRN Carbamide Peroxide [Debrox 6.5% Otic Soln] 5 - 10 ml EARBOTH DAILY PRN Mupirocin Oint [Bactroban Oint] 0 gm TOP BID PRN Sodium Chloride 0.65% [[place] Nasal [place]] 0 ml NASBOTH DAILY PRN 10/24/17 16:48 LORazepam [Ativan] 2 mg IVPUSH Q4H PRN Metoprolol Tartrate [Lopressor] 5 mg IVPUSH Q4H PRN hydrALAZINE [Apresoline] 20 mg IVPUSH Q4H PRN 10/24/17 16:50 Height and Weight [RC] 04 Intake and Output [RC] 04,16 Oxygen Therapy [RC] PRN Pulse Oximetry [RC] PRN Up With Assistance [RC] ASDIRECTED Up ad Suzanne [RC] ASDIRECTED VTE/DVT Education [RC] PER UNIT ROUTINE Vital Signs [RC] Q4HR Consult to Case Management [CONS] Routine Consult to House Mover Supervisor [CONS] Routine Consult to Spiritual Care [CONS] Routine OT Evaluation and Treatment [CONS] Routine PT Evaluation and Treatment [CONS] Routine Acetaminophen [Tylenol] 650 mg PO Q4H PRN Acetaminophen/HYDROcodone [[place] 325-5 MG] 1 tab PO Q4H PRN Albuterol/Ipratropium [DuoNeb 3.0-0.5 MG/3 ML] 3 ml NEB Q4H PRN Bisacodyl [Dulcolax] 5 mg PO DAILY PRN Docusate Sodium [Colace] 100 mg PO BID PRN Docusate Sodium/Sennosides [Senna Plus] 1 tab PO BID PRN HYDROmorphone [Dilaudid] 0.25 mg IVPUSH Q2H PRN LORazepam [Ativan] 0.25 mg IV Q6H PRN Ondansetron [Zofran] 4 mg IV Q6H PRN Promethazine [Phenergan] 6.25 mg Sodium Chloride 0.9% [Normal Saline] 50 ml IV Q6H Resuscitation Status Routine 10/24/17 16:52 RT Aerosol Therapy [RC] .PRN 10/24/17 16:58 Blood Glucose Check, Bedside [RC] 10/24/17 17:00 Magnesium Rep Pharmacy to Dose [Pharmacy to Dose - Magnesium Replacement] 1 dose .XX ASDIRECTED Potassium Rep Pharmacy to Dose [Pharmacy to Dose - Potassium Replacement] 1 dose .XX ASDIRECTED 10/24/17 18:39 METH-RESIST S.AUR,MRSA BY PCR [MOLEC] Routine 10/24/17 19:12 Magnesium Hydroxide [Milk of Magnesia] 15 - 30 ml PO DAILY PRN 10/24/17 19:15 Sodium Chloride 0.9% [Normal Saline] 1,000 ml IV ASDIRECTED 10/24/17 21:00 Non-Formulary Medication [NF Drug] 0 each TOP BID 10/24/17 21:52 SCD [Sequential Compression Device] [OM.PC] Routine 10/24/17 23:00 Cholecalciferol (Vitamin D3) [Vitamin D3] 2,000 units PO BEDTIME 10/24/17 Dinner Heart Healthy Diet [DIET] 10/25/17 06:37 VITAMIN D 25-HYROXY (D2, D3) [REF] Routine 10/25/17 09:00 Multivitamins,Therapeutic [Thera] 1 each PO DAILY 10/25/17 10:00 Patient Status [ADT] Routine Patient's Own Medication [Ptom] 0 each PO DAILY 10/25/17 10:21 Patient's Own Medication [Ptom] 0 each PO BID 10/25/17 10:30 Divalproex Sodium 250 mg PO DAILY Famotidine [Pepcid] 20 mg PO DAILY Levothyroxine 25 mcg PO ACBREAKFAST Pantoprazole [ProTONIX] 40 mg PO DAILY Polyethylene Glycol 3350 [MiraLAX] 17 gm PO DAILY 10/25/17 10:45 Alogliptin Benzoate [Alogliptin] 12.5 mg PO DAILY Venlafaxine [Effexor XR] 150 mg PO DAILY 10/25/17 10:53 CULTURE SPUTUM + SMEAR [RM] Stat 10/25/17 10:54 STREP PNEUMONIAE ANTIGEN [MREF] Stat 10/25/17 11:00 cefTRIAXone [Rocephin] 1 gm Sodium Chloride 0.9% [Normal Saline] 100 ml IV Q24H 10/25/17 11:47 RESPIRATORY PANEL BY PCR [MREF] Stat 10/25/17 17:00 Simvastatin [Zocor] 10 mg PO DAILY@1700 Venlafaxine [Effexor XR] 75 mg PO DAILY@1700 10/25/17 20:00 Azithromycin [Zithromax] 500 mg Sodium Chloride 0.9% [Normal Saline] 250 ml IV Q24H 10/25/17 21:00 Divalproex Sodium 500 mg PO BEDTIME Donepezil [Aricept] 10 mg PO BEDTIME risperiDONE [RisperiDAL] 2 mg PO BID 10/26/17 06:00 Trospium [Sanctura] 20 mg PO BIDAC - Plan Plan:: Assessment/Plan: Acute: Respiratory Distress - Carries a hx/o COPD (Emphysematous change), Mild bibasilar fibrosis, and Several small sub-pleural blebs within the lung bases - Supplemental O2/bronchodilators - Ambulate as tolerated Generalized Weakness - Unclear in etiology but maybe 2/2 metabolic: Hypoxia (pO2 is 65); E-lyte abnormality: Na is 132 - Pos troponin levels - UA, Chest CTA, CXR- all negative - CRP is 16.5 - Vit D level and TFT- both within normal limits - Continue PT/OT/RT Positive Troponin Levels - Cannot r/o ACS; CAD/HLD/HTN and HF - Lipid panel normal - Serial Troponin Level--trending down - CKMB x 2 -all normal URI/Bronchitis - Continue IV Azithromycin; Will add IV Rocephin - Sputum Cx, Mycoplasma/Strep pneumonia Ag tests--all negative so far - Respiratory Viral Panel- pending S/p Elevated D-Dimer - 2.34 - Chest CTA negative E-lyte Abnormality - Na is 134--> 132 - Replete and monitor Chronic: AR CAD HF with Unknown EF HLD HTN DE Urinary Incontinence Back Pain Alzheimer's Disease Schizophrenia DM2 Anemia Plan: He is worse today than last night Transfer to [facility] Inpatient Caffeine 100 mg 1 tab po x1 now Routine AM Labs High Fall Risk Continue PT/OT/RT SW/CM for d/c planning Additional orders as above Code status: 1
[2017-10-25] MEDS: Simvastatin 10 MG Tab PO SCH (16:36)
[2017-10-25] MEDS ORDERED: Azithromycin 500 MG in Sodium Chloride 0.9% 250 ML IV SCH (20:00)
[2017-10-25] MEDS: risperiDONE 1 MG Tab PO SCH (20:13)
[2017-10-25] MEDS: DIVALPROEX 250 MG PO SCH (20:13)
[2017-10-25] MEDS: CHOLECALCIFEROL 1000 UNIT PO SCH (20:13)
[2017-10-25] MEDS: Donepezil 10 MG Tab PO SCH (20:14)
[2017-10-26] MEDS: Levothyroxine 25 MCG Tab PO SCH (05:55)
[2017-10-26] MEDS: Trospium 20 MG Tab PO SCH ×2 (05:55→16:56)
--- NOTE | 2017-10-26 07:51 | PCM.PN ---
- General Info Date of Service: 10/26/17 Admission Dx/Problem (Free Text): Admission Diagnosis/Problem Admission Diagnosis/Problem Weakness Subjective Update: Follow Up Functional Status: Reports: Pain Controlled, Tolerating Diet, Urinating - Review of Systems General: Denies: Fever, Weakness, Chills HEENT: Reports: No Symptoms Pulmonary: Denies: Cough, Wheezing Cardiovascular: Denies: Chest Pain, Lightheadedness, Other Gastrointestinal: Denies: Abdominal Pain, Nausea, Vomiting Genitourinary: Reports: No Symptoms Musculoskeletal: Denies: Neck Pain Skin: Denies: Cyanosis, Mottled, Pallor, Diaphoresis, Pruritis, Rash Neurological: Reports: Confusion, Difficulty Walking, Weakness, Gait Disturbance Psychiatric: Denies: Depression, Anxiety, Agitation, Hallucinations Systems Review Comment:: No overnight or acute issues. He is now down to 2L NC. He reports no complaints. His mycoplasma and blood culture were negative but pos for Human Rhino/Enterovirus on respiratory viral panel. He looks comfortable and in no acute distress. - Patient Data Vitals - Most Recent: Last Vital Signs Temp 36.9 C 10/26/17 05:05 Pulse 91 10/26/17 05:05 Resp 24 H 10/26/17 05:05 BP 109/66 10/26/17 05:05 Pulse Ox 93 L 10/26/17 05:05 Weight - Most Recent: 68.629 kg I&O - Last 24 Hours: Intake & Output 10/25/17 10/26/17 10/26/17 22:59 06:59 14:59 Intake Total 1500 1961 Output Total 400 Balance 1500 1561 Lab Results Last 24 Hours: Laboratory Results - last 24 hr 10/25/17 10/25/17 10/25/17 Range/Units 06:37 06:37 06:37 Manual Slide Review Abnormal smear Sodium 132 L (136-145) mEq/L Potassium 4.1 (3.5-5.1) mEq/L Chloride 100 (98-107) mEq/L Carbon Dioxide 22 (21-32) mEq/L Anion Gap 14.1 (5-15) BUN 20 H (7-18) mg/dL Creatinine 1.4 H (0.7-1.3) mg/dL Est Cr Clr Drug Dosing 37.83 mL/min Estimated GFR (MDRD) 49 (>60) mL/min BUN/Creatinine Ratio 14.3 (14-18) Glucose 149 H (83-115) mg/dL POC Glucose (83-110) mg/dL Calcium 8.9 (8.5-10.1) mg/dL Magnesium 1.9 (1.8-2.4) mg/dl CK-MB (CK-2) 0.9 (0-3.6) ng/ml Troponin I 0.098 H* (0.00-0.056) ng/mL C-Reactive Protein 16.5 H* (<1.0) mg/dL Triglycerides 36 (<150) mg/dL Cholesterol 109 (<200) mg/dL LDL Cholesterol Direct 42 (<100) mg/dL HDL Cholesterol 56.0 (40-59) mg/dL Vitamin D 25-Hydroxy 69 (30-100) ng/mL Free T4 0.91 (0.76-1.46) ng/dL TSH 3rd Generation 1.260 (0.358-3.74) uIU/mL Mycoplasma pneumon IgM (NEGATIVE) 10/25/17 10/25/17 10/25/17 Range/Units 06:37 09:24 16:16 Manual Slide Review Sodium (136-145) mEq/L Potassium (3.5-5.1) mEq/L Chloride (98-107) mEq/L Carbon Dioxide (21-32) mEq/L Anion Gap (5-15) BUN (7-18) mg/dL Creatinine (0.7-1.3) mg/dL Est Cr Clr Drug Dosing mL/min Estimated GFR (MDRD) (>60) mL/min BUN/Creatinine Ratio (14-18) Glucose (83-115) mg/dL POC Glucose 142 H 170 H (83-110) mg/dL Calcium (8.5-10.1) mg/dL Magnesium (1.8-2.4) mg/dl CK-MB (CK-2) (0-3.6) ng/ml Troponin I (0.00-0.056) ng/mL C-Reactive Protein (<1.0) mg/dL Triglycerides (<150) mg/dL Cholesterol (<200) mg/dL LDL Cholesterol Direct (<100) mg/dL HDL Cholesterol (40-59) mg/dL Vitamin D 25-Hydroxy (30-100) ng/mL Free T4 (0.76-1.46) ng/dL TSH 3rd Generation (0.358-3.74) uIU/mL Mycoplasma pneumon IgM Negative (NEGATIVE) Adarsh Results Last 24 Hours: Microbiology 10/25/17 11:25 Respiratory Virus Panel (PCR) - Final Nasopharyngeal Swab 10/24/17 11:10 Aerobic Blood Culture - Preliminary Blood - Venous NO GROWTH AFTER 1 DAY Anaerobic Blood Culture - Preliminary NO GROWTH AFTER 1 DAY 10/24/17 11:00 Aerobic Blood Culture - Preliminary Blood - Venous - Lab Draw NO GROWTH AFTER 1 DAY Anaerobic Blood Culture - Preliminary NO GROWTH AFTER 1 DAY Med Orders - Current: Current Medications Acetaminophen (Tylenol) 650 mg PO Q4H PRN PRN Reason: Pain (Mild 1-3)/fever Hydrocodone Bitart/Acetaminophen (Gobles 325-5 Mg) 1 tab PO Q4H PRN PRN Reason: Pain (moderate 4-6) Acyclovir (Zovirax 5% Oint) 0 gm TOP 5XDAY PRN PRN Reason: coldsore Albuterol (Proventil Neb Soln) 2.5 mg INH Q4H PRN PRN Reason: Shortness of Breath Albuterol/Ipratropium (Duoneb 3.0-0.5 Mg/3 Ml) 3 ml NEB Q4H PRN PRN Reason: Shortness Of Breath/wheezing Last Admin: 10/25/17 13:54 Dose: 3 ml Alogliptin Benzoate (Alogliptin) 12.5 mg PO DAILY [facility] Last Admin: 10/25/17 11:00 Dose: 12.5 mg Baclofen (Lioresal) 10 mg PO DAILY PRN PRN Reason: Pain Bisacodyl (Dulcolax) 5 mg PO DAILY PRN PRN Reason: Constipation Carbamide Perox/Anhydrous Glycerin (Debrox 6.5% Otic Soln) 5 - 10 ml EARBOTH DAILY PRN PRN Reason: asdirected Cholecalciferol (Vitamin D3) 2,000 units PO BEDTIME [facility] Last Admin: 10/25/17 20:13 Dose: 2,000 units Divalproex Sodium (Divalproex Sodium) 250 mg PO DAILY [facility] Last Admin: 10/25/17 11:01 Dose: 250 mg Divalproex Sodium (Divalproex Sodium) 500 mg PO BEDTIME [facility] Last Admin: 10/25/17 20:13 Dose: 500 mg Docusate Sodium (Colace) 100 mg PO BID PRN PRN Reason: Constipation Donepezil HCl (Aricept) 10 mg PO BEDTIME [facility] Last Admin: 10/25/17 20:14 Dose: 10 mg Famotidine (Pepcid) 20 mg PO DAILY [facility] Last Admin: 10/25/17 11:00 Dose: 20 mg Hydralazine HCl (Apresoline) 20 mg IVPUSH Q4H PRN PRN Reason: Hypertension Hydromorphone HCl (Dilaudid) 0.25 mg IVPUSH Q2H PRN PRN Reason: Pain (severe 7-10) Promethazine HCl 6.25 mg/ (Sodium Chloride) 50.25 mls @ 100 mls/hr IV Q6H PRN PRN Reason: Nausea/Vomiting Sodium Chloride (Normal Saline) 1,000 mls @ 80 mls/hr IV ASDIRECTED [facility] Last Admin: 10/25/17 22:38 Dose: 80 mls/hr Ceftriaxone Sodium 1 gm/ (Sodium Chloride) 100 mls @ 200 mls/hr IV Q24H [facility] Last Admin: 10/25/17 11:13 Dose: 200 mls/hr Azithromycin 500 mg/ Sodium (Chloride) 250 mls @ 250 mls/hr IV Q24H [facility] Last Admin: 10/25/17 20:14 Dose: 250 mls/hr Levothyroxine Sodium (Levothyroxine) 25 mcg PO ACBREAKFAST [facility] Last Admin: 10/26/17 05:55 Dose: 25 mcg Lorazepam (Ativan) 2 mg IVPUSH Q4H PRN PRN Reason: Seizures Lorazepam (Ativan) 0.25 mg IV Q6H PRN PRN Reason: Anxiety Magnesium Hydroxide (Milk Of Magnesia) 15 - 30 ml PO DAILY PRN PRN Reason: Constipation Magnesium Sulfate (Pharmacy To Dose - Magnesium Replacement) 1 dose .XX ASDIRECTED [facility] Metoprolol Tartrate (Lopressor) 5 mg IVPUSH Q4H PRN PRN Reason: Tachycardia Multivitamins (Thera) 1 each PO DAILY [facility] Last Admin: 10/25/17 10:02 Dose: 1 each Mupirocin (Bactroban Oint) 0 gm TOP BID PRN PRN Reason: as directed TO [facility] Fluticasone Nasal (Rector Own Med) 0 each TOP BID [facility] Last Admin: 10/25/17 20:33 Dose: 1 each Ondansetron HCl (Zofran) 4 mg IV Q6H PRN PRN Reason: Nausea/Vomiting Memantine Hcl 21 Mg 0 each PO DAILY [facility] Last Admin: 10/25/17 10:59 Dose: 1 each Lactases 3000 Fcc (Units Own Med) 0 each PO BID [facility] Last Admin: 10/25/17 20:14 Dose: 1.5 each Polyethylene Glycol (Miralax) 17 gm PO DAILY [facility] Last Admin: 10/25/17 11:00 Dose: 17 gm Potassium Chloride (Pharmacy To Dose - Potassium Replacement) 1 dose .XX ASDIRECTED [facility] Risperidone (Risperidal) 2 mg PO BID [facility] Last Admin: 10/25/17 20:13 Dose: 2 mg Senna/Docusate Sodium (Senna Plus) 1 tab PO BID PRN PRN Reason: Constipation Simvastatin (Zocor) 10 mg PO DAILY@1700 [facility] Last Admin: 10/25/17 16:36 Dose: 10 mg Sodium Chloride (Saline Flush) 10 ml FLUSH ONETIME PRN PRN Reason: IV FLUSH Last Admin: 10/24/17 12:39 Dose: 10 ml Sodium Chloride ([place] Nasal Rector) 0 ml NASBOTH DAILY PRN PRN Reason: as directed Trospium (Sanctura) 20 mg PO BIDAC [facility] Last Admin: 10/26/17 05:55 Dose: 20 mg Venlafaxine HCl (Effexor Xr) 75 mg PO DAILY@1700 [facility] Last Admin: 10/25/17 16:36 Dose: 75 mg Venlafaxine HCl (Effexor Xr) 150 mg PO DAILY [facility] Last Admin: 10/25/17 11:00 Dose: 150 mg Discontinued Medications Azithromycin (Zithromax) 500 mg IV Q24H [facility] Caffeine (Caffeine) 100 mg PO ONETIME ONE Stop: 10/25/17 11:01 Last Admin: 10/25/17 11:14 Dose: 100 mg Donepezil HCl (Aricept) 10 mg PO BEDTIME [facility] Last Admin: 10/24/17 23:27 Dose: 10 mg Famotidine (Pepcid) 20 mg PO DAILY [facility] Last Admin: 10/25/17 11:06 Dose: Not Given Sodium Chloride (Normal Saline) 500 mls @ 1,000 mls/hr IV .BOLUS ONE Stop: 10/24/17 11:01 Last Admin: 10/24/17 10:49 Dose: 1,000 mls/hr Sodium Chloride (Normal Saline) 250 mls @ 80 mls/hr IV ASDIRECTED [facility] Last Admin: 10/24/17 13:34 Dose: 80 mls/hr Magnesium Sulfate 2 gm/ Premix 50 mls @ 50 mls/hr IV ONETIME STA Stop: 10/24/17 12:29 Last Admin: 10/24/17 12:01 Dose: 50 mls/hr Azithromycin 500 mg/ Sodium (Chloride) 250 mls @ 250 mls/hr IV ONETIME ONE Stop: 10/24/17 20:12 Last Admin: 10/24/17 20:05 Dose: 250 mls/hr Iopamidol (Isovue-370 (76%)) 50 ml IVPUSH ONETIME ONE Stop: 10/24/17 11:03 Last Admin: 10/24/17 12:38 Dose: 50 ml Iopamidol (Isovue-370 (76%)) 100 ml IVPUSH ONETIME ONE Stop: 10/24/17 11:03 Last Admin: 10/24/17 12:38 Dose: 50 ml Levothyroxine Sodium (Levothyroxine) 25 mcg PO ACBREAKFAST [facility] Last Admin: 10/25/17 11:05 Dose: Not Given Magnesium Oxide (Magnesium Oxide) 400 mg PO ONETIME ONE Stop: 10/24/17 18:01 Last Admin: 10/24/17 20:06 Dose: 400 mg Divalproex 250 Mg Er (Tab Own Med) 2 tab PO BEDTIME [facility] Last Admin: 10/24/17 23:55 Dose: 2 tab Lactases 3000 Fcc (Units Own Med) 0 tab PO BID [facility] Last Admin: 10/25/17 11:05 Dose: Not Given Risperidone 2 Mg (Own Med) 0 mg PO BID [facility] Last Admin: 10/25/17 11:05 Dose: Not Given Vesicare 10 Mg Own (Med) 0 mg PO BEDTIME [facility] Last Admin: 10/24/17 23:31 Dose: 10 mg Non-Formulary Medication (Acetaminophen [Tylenol]) 325 mg PO Q4H PRN PRN Reason: Pain Non-Formulary Medication (Non-Formulary Medication [Nf Drug]) 2 - 4 tsp PO ASDIRECTED PRN PRN Reason: Indigestion Pantoprazole Sodium (Protonix) 40 mg PO DAILY [facility] Last Admin: 10/25/17 11:06 Dose: Not Given Pantoprazole Sodium (Protonix) 40 mg PO DAILY [facility] Last Admin: 10/25/17 11:01 Dose: 40 mg Peg 3350 Electrolyte Powder For Oral Solution 0 each PO DAILY [facility] Last Admin: 10/25/17 11:05 Dose: Not Given Sitagliptin 50 Mg ( (Januvia)) 0 each PO DAILY [facility] Last Admin: 10/25/17 11:06 Dose: Not Given Risperidone 2 Mg (Own Med) 0 each PO BID [facility] Polyethylene Glycol (Miralax) 17 gm PO DAILY PRN PRN Reason: Constipation Simvastatin (Zocor) 10 mg PO DAILY@1700 [facility] Last Admin: 10/24/17 23:31 Dose: 10 mg Venlafaxine HCl (Effexor Xr) 75 mg PO DAILY@1700 [facility] Last Admin: 10/24/17 23:30 Dose: 75 mg - Exam Quality Assessment: Supplemental Oxygen General: Alert, Cooperative, No Acute Distress HEENT: Pupils Equal, Pupils Reactive, Mucous Membr. Moist/[place], Other (dooling) Neck: Supple, Trachea Midline, No JVD Lungs: Clear to Auscultation, Normal Respiratory Effort, Decreased Breath Sounds (at the bases) Cardiovascular: Regular Rate, Regular Rhythm GI/Abdominal Exam: Normal Bowel Sounds, Soft, Non-Tender, No Organomegaly, No Distention, No Abnormal Bruit (Male) Exam: Deferred Back Exam: Normal Inspection, Decreased Range of Motion Extremities: Normal Inspection, Normal Range of Motion, Non-Tender, No Pedal Edema, Normal Capillary Refill Peripheral Pulses: 2+: Dorsalis Pedis (L), Dorsalis Pedis (R) Skin: Warm, Dry, Intact Neurological: No New Focal Deficit Psy/Mental Status: Alert, Normal Affect, Normal Mood - Problem List Review Problem List Initiated/Reviewed/Updated: Yes - My Orders Last 24 Hours: My Active Orders 10/25/17 09:00 Multivitamins,Therapeutic [Thera] 1 each PO DAILY 10/25/17 10:00 Patient Status [ADT] Routine Patient's Own Medication [Ptom] 0 each PO DAILY 10/25/17 10:21 Patient's Own Medication [Ptom] 0 each PO BID 10/25/17 10:30 Divalproex Sodium 250 mg PO DAILY Famotidine [Pepcid] 20 mg PO DAILY Levothyroxine 25 mcg PO ACBREAKFAST Polyethylene Glycol 3350 [MiraLAX] 17 gm PO DAILY 10/25/17 10:45 Alogliptin Benzoate [Alogliptin] 12.5 mg PO DAILY Venlafaxine [Effexor XR] 150 mg PO DAILY 10/25/17 11:00 cefTRIAXone [Rocephin] 1 gm Sodium Chloride 0.9% [Normal Saline] 100 ml IV Q24H 10/25/17 11:25 CULTURE SPUTUM + SMEAR [RM] Stat 10/25/17 17:00 Simvastatin [Zocor] 10 mg PO DAILY@1700 Venlafaxine [Effexor XR] 75 mg PO DAILY@1700 10/25/17 20:00 Azithromycin [Zithromax] 500 mg Sodium Chloride 0.9% [Normal Saline] 250 ml IV Q24H 10/25/17 21:00 Divalproex Sodium 500 mg PO BEDTIME Donepezil [Aricept] 10 mg PO BEDTIME risperiDONE [RisperiDAL] 2 mg PO BID 10/26/17 03:08 STREP PNEUMONIAE ANTIGEN [MREF] Stat 10/26/17 06:00 Trospium [Sanctura] 20 mg PO BIDAC - Plan Plan:: Assessment/Plan: Acute: Bronchitis 2/2 Rhino/Enterovirus - Continue IV Azithromycin and d/c IV Rocephin - Sputum Cx, Mycoplasma/Strep pneumonia Ag tests--all negative so far - IS as directed if able to tolerate Generalized Weakness - Unclear in etiology but maybe 2/2 metabolic: Hypoxia (pO2 is 65); E-lyte abnormality: Na is 132 - Pos troponin levels - UA, Chest CTA, CXR- all negative - CRP is 16.5 - Vit D level and TFT- both within normal limits - Continue PT/OT/RT Resolved: S/p Elevated D-Dimer - 2.34 - Chest CTA negative S/p Respiratory Distress - Carries a hx/o COPD (Emphysematous change), Mild bibasilar fibrosis, and Several small sub-pleural blebs within the lung bases - Supplemental O2/bronchodilators - Ambulate as tolerated S/p Positive Troponin Levels - Cannot r/o ACS; CAD/HLD/HTN and HF - Lipid panel normal - Serial Troponin Level--trending down - CKMB x 2 -all normal E-lyte Abnormality - Na is 134--> 132 - Replete and monitor Chronic: AR CAD HF with Unknown EF HLD HTN MD Urinary Incontinence Back Pain Alzheimer's Disease Schizophrenia DM2 Anemia Plan: He continues to improves clinically Continue current treatment Routine AM Labs High Fall Risk Continue PT/OT/RT SW/CM for d/c planning Additional orders as above Code status: 1
[2017-10-26] MEDS: Albuterol/Ipratropium 3.0-0.5 MG/3 ML Neb Soln NEB PRN (08:32)
[2017-10-26] MEDS: risperiDONE 1 MG Tab PO SCH ×2 (09:39→21:33)
[2017-10-26] MEDS: Alogliptin 12.5 MG TABLET PO SCH (09:39)
[2017-10-26] MEDS: Divalproex Sodium Delayed-Release 250 MG Tab.CR PO SCH (09:40)
[2017-10-26] MEDS: Multivitamins,Therapeutic Tab PO SCH (09:42)
[2017-10-26] MEDS: Venlafaxine 75 MG Cap.ER PO SCH ×2 (09:42→16:56)
[2017-10-26] MEDS: Famotidine 20 MG Tab PO SCH (09:42)
[2017-10-26] MEDS: LACTASE PO SCH ×2 (09:46→21:34)
[2017-10-26] MEDS: MEMANTINE HCL 21 MG PO SCH (09:47)
[2017-10-26] MEDS: Polyethylene Glycol 3350 Powder 17 GM Packet PO SCH (09:47)
[2017-10-26] MEDS: FLUTICASONE TOP SCH ×2 (09:54→21:34)
[2017-10-26] MEDS: Sodium Chloride 0.9% 1,000 ML IV SCH (11:33)
[2017-10-26] MEDS: Simvastatin 10 MG Tab PO SCH (16:56)
[2017-10-26] MEDS: CHOLECALCIFEROL 1000 UNIT PO SCH (21:32)
[2017-10-26] MEDS: Azithromycin 250 MG Tab PO SCH (21:32)
[2017-10-26] MEDS: DIVALPROEX 250 MG PO SCH (21:33)
[2017-10-26] MEDS: Donepezil 10 MG Tab PO SCH (21:33)
[2017-10-27] MEDS: Sodium Chloride 0.9% 1,000 ML IV SCH (00:34)
[2017-10-27] MEDS: Levothyroxine 25 MCG Tab PO SCH (06:01)
[2017-10-27] MEDS: Trospium 20 MG Tab PO SCH ×2 (06:02→15:40)
[2017-10-27] MEDS: Albuterol/Ipratropium 3.0-0.5 MG/3 ML Neb Soln NEB PRN (06:15)
--- NOTE | 2017-10-27 07:36 | PCM.PN ---
- General Info Date of Service: 10/27/17 Admission Dx/Problem (Free Text): Admission Diagnosis/Problem Admission Diagnosis/Problem Weakness Subjective Update: Follow Up Functional Status: Reports: Pain Controlled, Tolerating Diet, Ambulating, Urinating. Denies: New Symptoms - Review of Systems General: Denies: Fever, Fatigue, Malaise, Chills HEENT: Reports: No Symptoms Pulmonary: Reports: Shortness of Breath, Other (hypoxic) Cardiovascular: Denies: Chest Pain, Palpitations, Dyspnea on Exertion, Lightheadedness Gastrointestinal: Denies: Abdominal Pain, Difficulty Swallowing, Nausea, Vomiting Genitourinary: Denies: No Symptoms Musculoskeletal: Denies: No Symptoms Skin: Denies: Mottled, Pallor, Diaphoresis, Bruising, Rash Neurological: Reports: Confusion, Pre-Existing Deficit, Difficulty Walking, Weakness, Gait Disturbance. Denies: Dizziness, Headache Psychiatric: Denies: Depression, Anxiety, Agitation, Hallucinations Systems Review Comment:: No overnight or acute issues. He states "I slept like a dog" when asked if he rested well last night. He has no complaints or issues. He remains afebrile w/o leukocytosis. However his CRP went up this morning. He is now on 3 L NC from 2 yesterday. His Mg level is slightly low at 1.7. He sounded horrible today and again he has poor control of oral secretion-drools. He may be aspirating. Patient at bedside looked somewhat weary. His hospital gown is partially on and his supplemental O2 NC is off to his side. He is however comfortable and in no acute distress. - Patient Data Vitals - Most Recent: Last Vital Signs Temp 37.3 C 10/27/17 04:30 Pulse 98 10/27/17 04:30 Resp 20 10/27/17 04:30 BP 118/98 H 10/27/17 04:30 Pulse Ox 95 10/27/17 06:16 Weight - Most Recent: 68.855 kg I&O - Last 24 Hours: Intake & Output 10/26/17 10/27/17 10/27/17 22:59 06:59 14:59 Intake Total 1400 1002 Balance 1400 1002 Lab Results Last 24 Hours: Laboratory Results - last 24 hr 10/26/17 10/26/17 10/27/17 Range/Units 09:53 17:07 05:44 WBC 5.83 (4.23-9.07) K/mm3 RBC 3.90 L (4.63-6.08) M/mm3 Hgb 13.0 L (13.7-17.5) gm/L Hct 39.0 L (40.1-51.0) % MCV 100.0 H (79.0-92.2) fl MCH 33.3 H (25.7-32.2) pg MCHC 33.3 (32.2-35.5) g/dl RDW Std Deviation 52.8 H (35.1-43.9) fL Plt Count 155 L (163-337) K/mm3 MPV 11.1 (9.4-12.3) fl Neut % (Auto) 67.9 (34.0-67.9) % Lymph % (Auto) 11.7 L (21.8-53.1) % [place] % (Auto) 18.2 H (5.3-12.2) % Eos % (Auto) 1.4 (0.8-7.0) Baso % (Auto) 0.3 (0.1-1.2) % Neut # (Auto) 3.96 (1.78-5.38) K/mm3 Lymph # (Auto) 0.68 L (1.32-3.57) K/mm3 [place] # (Auto) 1.06 H (0.30-0.82) K/mm3 Eos # (Auto) 0.08 (0.04-0.54) K/mm3 Baso # (Auto) 0.02 (0.01-0.08) K/mm3 Manual Slide Review Abnormal smear Sodium (136-145) mEq/L Potassium (3.5-5.1) mEq/L Chloride (98-107) mEq/L Carbon Dioxide (21-32) mEq/L Anion Gap (5-15) BUN (7-18) mg/dL Creatinine (0.7-1.3) mg/dL Est Cr Clr Drug Dosing mL/min Estimated GFR (MDRD) (>60) mL/min BUN/Creatinine Ratio (14-18) Glucose (83-115) mg/dL POC Glucose 152 H 162 H (83-110) mg/dL Calcium (8.5-10.1) mg/dL Magnesium (1.8-2.4) mg/dl C-Reactive Protein (<1.0) mg/dL 10/27/17 Range/Units 05:44 WBC (4.23-9.07) K/mm3 RBC (4.63-6.08) M/mm3 Hgb (13.7-17.5) gm/L Hct (40.1-51.0) % MCV (79.0-92.2) fl MCH (25.7-32.2) pg MCHC (32.2-35.5) g/dl RDW Std Deviation (35.1-43.9) fL Plt Count (163-337) K/mm3 MPV (9.4-12.3) fl Neut % (Auto) (34.0-67.9) % Lymph % (Auto) (21.8-53.1) % [place] % (Auto) (5.3-12.2) % Eos % (Auto) (0.8-7.0) Baso % (Auto) (0.1-1.2) % Neut # (Auto) (1.78-5.38) K/mm3 Lymph # (Auto) (1.32-3.57) K/mm3 [place] # (Auto) (0.30-0.82) K/mm3 Eos # (Auto) (0.04-0.54) K/mm3 Baso # (Auto) (0.01-0.08) K/mm3 Manual Slide Review Sodium 134 L (136-145) mEq/L Potassium 4.3 (3.5-5.1) mEq/L Chloride 103 (98-107) mEq/L Carbon Dioxide 24 (21-32) mEq/L Anion Gap 11.3 (5-15) BUN 21 H (7-18) mg/dL Creatinine 1.1 (0.7-1.3) mg/dL Est Cr Clr Drug Dosing 48.14 mL/min Estimated GFR (MDRD) > 60 (>60) mL/min BUN/Creatinine Ratio 19.1 H (14-18) Glucose 142 H (83-115) mg/dL POC Glucose (83-110) mg/dL Calcium 8.6 (8.5-10.1) mg/dL Magnesium 1.6 L (1.8-2.4) mg/dl C-Reactive Protein 20.3 H* (<1.0) mg/dL [place] Results Last 24 Hours: Microbiology 10/24/17 11:10 Aerobic Blood Culture - Preliminary Blood - Venous NO GROWTH AFTER 2 DAYS Anaerobic Blood Culture - Preliminary NO GROWTH AFTER 2 DAYS 10/24/17 11:00 Aerobic Blood Culture - Preliminary Blood - Venous - Lab Draw NO GROWTH AFTER 2 DAYS Anaerobic Blood Culture - Preliminary NO GROWTH AFTER 2 DAYS Med Orders - Current: Current Medications Acetaminophen (Tylenol) 650 mg PO Q4H PRN PRN Reason: Pain (Mild 1-3)/fever Hydrocodone Bitart/Acetaminophen ([place] 325-5 Mg) 1 tab PO Q4H PRN PRN Reason: Pain (moderate 4-6) Acyclovir (Zovirax 5% Oint) 0 gm TOP 5XDAY PRN PRN Reason: coldsore Albuterol (Proventil Neb Soln) 2.5 mg INH Q4H PRN PRN Reason: Shortness of Breath Albuterol/Ipratropium (Duoneb 3.0-0.5 Mg/3 Ml) 3 ml NEB Q4H PRN PRN Reason: Shortness Of Breath/wheezing Last Admin: 10/27/17 06:15 Dose: 3 ml Alogliptin Benzoate (Alogliptin) 12.5 mg PO DAILY [facility] Last Admin: 10/26/17 09:39 Dose: 12.5 mg Azithromycin (Zithromax) 250 mg PO Q24H [facility] Last Admin: 10/26/17 21:32 Dose: 250 mg Baclofen (Lioresal) 10 mg PO DAILY PRN PRN Reason: Pain Bisacodyl (Dulcolax) 5 mg PO DAILY PRN PRN Reason: Constipation Carbamide Perox/Anhydrous Glycerin (Debrox 6.5% Otic Soln) 5 - 10 ml EARBOTH DAILY PRN PRN Reason: asdirected Cholecalciferol (Vitamin D3) 2,000 units PO BEDTIME [facility] Last Admin: 10/26/17 21:32 Dose: 2,000 units Divalproex Sodium (Divalproex Sodium) 250 mg PO DAILY [facility] Last Admin: 10/26/17 09:40 Dose: 250 mg Divalproex Sodium (Divalproex Sodium) 500 mg PO BEDTIME [facility] Last Admin: 10/26/17 21:33 Dose: 500 mg Docusate Sodium (Colace) 100 mg PO BID PRN PRN Reason: Constipation Donepezil HCl (Aricept) 10 mg PO BEDTIME [facility] Last Admin: 10/26/17 21:33 Dose: 10 mg Famotidine (Pepcid) 20 mg PO DAILY [facility] Last Admin: 10/26/17 09:42 Dose: 20 mg Hydralazine HCl (Apresoline) 20 mg IVPUSH Q4H PRN PRN Reason: Hypertension Hydromorphone HCl (Dilaudid) 0.25 mg IVPUSH Q2H PRN PRN Reason: Pain (severe 7-10) Promethazine HCl 6.25 mg/ (Sodium Chloride) 50.25 mls @ 100 mls/hr IV Q6H PRN PRN Reason: Nausea/Vomiting Sodium Chloride (Normal Saline) 1,000 mls @ 80 mls/hr IV ASDIRECTED [facility] Last Admin: 10/27/17 00:34 Dose: 80 mls/hr Levothyroxine Sodium (Levothyroxine) 25 mcg PO ACBREAKFAST [facility] Last Admin: 10/27/17 06:01 Dose: 25 mcg Lorazepam (Ativan) 2 mg IVPUSH Q4H PRN PRN Reason: Seizures Lorazepam (Ativan) 0.25 mg IV Q6H PRN PRN Reason: Anxiety Magnesium Hydroxide (Milk Of Magnesia) 15 - 30 ml PO DAILY PRN PRN Reason: Constipation Magnesium Sulfate (Pharmacy To Dose - Magnesium Replacement) 1 dose .XX ASDIRECTED [facility] Metoprolol Tartrate (Lopressor) 5 mg IVPUSH Q4H PRN PRN Reason: Tachycardia Multivitamins (Thera) 1 each PO DAILY [facility] Last Admin: 10/26/17 09:42 Dose: 1 each Mupirocin (Bactroban Oint) 0 gm TOP BID PRN PRN Reason: as directed TO [facility] Fluticasone Nasal ([place] Own Med) 0 each TOP BID [facility] Last Admin: 10/26/17 21:34 Dose: 1 each Ondansetron HCl (Zofran) 4 mg IV Q6H PRN PRN Reason: Nausea/Vomiting Memantine Hcl 21 Mg 0 each PO DAILY [facility] Last Admin: 10/26/17 09:47 Dose: 1 each Lactases 3000 Fcc (Units Own Med) 0 each PO BID [facility] Last Admin: 10/26/17 21:34 Dose: 1.5 each Polyethylene Glycol (Miralax) 17 gm PO DAILY [facility] Last Admin: 10/26/17 09:47 Dose: 17 gm Potassium Chloride (Pharmacy To Dose - Potassium Replacement) 1 dose .XX ASDIRECTED [facility] Risperidone (Risperidal) 2 mg PO BID [facility] Last Admin: 10/26/17 21:33 Dose: 2 mg Senna/Docusate Sodium (Senna Plus) 1 tab PO BID PRN PRN Reason: Constipation Simvastatin (Zocor) 10 mg PO DAILY@1700 [facility] Last Admin: 10/26/17 16:56 Dose: 10 mg Sodium Chloride (Saline Flush) 10 ml FLUSH ONETIME PRN PRN Reason: IV FLUSH Last Admin: 10/24/17 12:39 Dose: 10 ml Sodium Chloride ([place] Nasal [place]) 0 ml NASBOTH DAILY PRN PRN Reason: as directed Trospium (Sanctura) 20 mg PO BIDAC [facility] Last Admin: 10/27/17 06:02 Dose: 20 mg Venlafaxine HCl (Effexor Xr) 75 mg PO DAILY@1700 [facility] Last Admin: 10/26/17 16:56 Dose: 75 mg Venlafaxine HCl (Effexor Xr) 150 mg PO DAILY [facility] Last Admin: 10/26/17 09:42 Dose: 150 mg Discontinued Medications Azithromycin (Zithromax) 500 mg IV Q24H [facility] Caffeine (Caffeine) 100 mg PO ONETIME ONE Stop: 10/25/17 11:01 Last Admin: 10/25/17 11:14 Dose: 100 mg Donepezil HCl (Aricept) 10 mg PO BEDTIME [facility] Last Admin: 10/24/17 23:27 Dose: 10 mg Famotidine (Pepcid) 20 mg PO DAILY [facility] Last Admin: 10/25/17 11:06 Dose: Not Given Sodium Chloride (Normal Saline) 500 mls @ 1,000 mls/hr IV .BOLUS ONE Stop: 10/24/17 11:01 Last Admin: 10/24/17 10:49 Dose: 1,000 mls/hr Sodium Chloride (Normal Saline) 250 mls @ 80 mls/hr IV ASDIRECTED [facility] Last Admin: 10/24/17 13:34 Dose: 80 mls/hr Magnesium Sulfate 2 gm/ Premix 50 mls @ 50 mls/hr IV ONETIME STA Stop: 10/24/17 12:29 Last Admin: 10/24/17 12:01 Dose: 50 mls/hr Azithromycin 500 mg/ Sodium (Chloride) 250 mls @ 250 mls/hr IV ONETIME ONE Stop: 10/24/17 20:12 Last Admin: 10/24/17 20:05 Dose: 250 mls/hr Ceftriaxone Sodium 1 gm/ (Sodium Chloride) 100 mls @ 200 mls/hr IV Q24H [facility] Last Admin: 10/25/17 11:13 Dose: 200 mls/hr Azithromycin 500 mg/ Sodium (Chloride) 250 mls @ 250 mls/hr IV Q24H [facility] Last Admin: 10/25/17 20:14 Dose: 250 mls/hr Iopamidol (Isovue-370 (76%)) 50 ml IVPUSH ONETIME ONE Stop: 10/24/17 11:03 Last Admin: 10/24/17 12:38 Dose: 50 ml Iopamidol (Isovue-370 (76%)) 100 ml IVPUSH ONETIME ONE Stop: 10/24/17 11:03 Last Admin: 10/24/17 12:38 Dose: 50 ml Levothyroxine Sodium (Levothyroxine) 25 mcg PO ACBREAKFAST [facility] Last Admin: 10/25/17 11:05 Dose: Not Given Magnesium Oxide (Magnesium Oxide) 400 mg PO ONETIME ONE Stop: 10/24/17 18:01 Last Admin: 10/24/17 20:06 Dose: 400 mg Divalproex 250 Mg Er (Tab Own Med) 2 tab PO BEDTIME [facility] Last Admin: 10/24/17 23:55 Dose: 2 tab Lactases 3000 Fcc (Units Own Med) 0 tab PO BID [facility] Last Admin: 10/25/17 11:05 Dose: Not Given Risperidone 2 Mg (Own Med) 0 mg PO BID [facility] Last Admin: 10/25/17 11:05 Dose: Not Given Vesicare 10 Mg Own (Med) 0 mg PO BEDTIME [facility] Last Admin: 10/24/17 23:31 Dose: 10 mg Non-Formulary Medication (Acetaminophen [Tylenol]) 325 mg PO Q4H PRN PRN Reason: Pain Non-Formulary Medication (Non-Formulary Medication [Nf Drug]) 2 - 4 tsp PO ASDIRECTED PRN PRN Reason: Indigestion Pantoprazole Sodium (Protonix) 40 mg PO DAILY [facility] Last Admin: 10/25/17 11:06 Dose: Not Given Pantoprazole Sodium (Protonix) 40 mg PO DAILY [facility] Last Admin: 10/25/17 11:01 Dose: 40 mg Peg 3350 Electrolyte Powder For Oral Solution 0 each PO DAILY [facility] Last Admin: 10/25/17 11:05 Dose: Not Given Sitagliptin 50 Mg ( (Januvia)) 0 each PO DAILY [facility] Last Admin: 10/25/17 11:06 Dose: Not Given Risperidone 2 Mg (Own Med) 0 each PO BID [facility] Polyethylene Glycol (Miralax) 17 gm PO DAILY PRN PRN Reason: Constipation Simvastatin (Zocor) 10 mg PO DAILY@1700 [facility] Last Admin: 10/24/17 23:31 Dose: 10 mg Venlafaxine HCl (Effexor Xr) 75 mg PO DAILY@1700 [facility] Last Admin: 10/24/17 23:30 Dose: 75 mg - Exam Quality Assessment: Supplemental Oxygen General: Alert, Cooperative, No Acute Distress HEENT: Pupils Equal, Pupils Reactive, Mucous Membr. Moist/[place] Neck: Supple, Trachea Midline, No JVD Lungs: Normal Respiratory Effort, Decreased Breath Sounds, Rhonchi, Wheezing, Other ([place] sounds) Cardiovascular: Other ([place]itious sounds ) GI/Abdominal Exam: Normal Bowel Sounds, Soft, Non-Tender, No Organomegaly, No Distention, No Abnormal Bruit, No Mass (Male) Exam: Deferred Back Exam: Normal Inspection, Decreased Range of Motion Extremities: Normal Inspection, Normal Range of Motion, Non-Tender, No Pedal Edema, Normal Capillary Refill Peripheral Pulses: 2+: Dorsalis Pedis (L), Dorsalis Pedis (R) Skin: Warm, Dry, Intact Neurological: No New Focal Deficit Psy/Mental Status: Alert, Normal Affect, Normal Mood - Problem List Review Problem List Initiated/Reviewed/Updated: Yes - My Orders Last 24 Hours: My Active Orders 10/26/17 13:26 IS (RT) [RT Incentive Spirometry] [RC] ASDIRECTED 10/26/17 20:00 Azithromycin [Zithromax] 250 mg PO Q24H 10/28/17 05:11 BMP [BASIC METABOLIC PANEL,BMP] [CHEM] AM CBC WITH AUTO DIFF [HEME] AM CRP [C-REACTIVE PROTEIN] [CHEM] AM MG [MAGNESIUM] [CHEM] AM 10/29/17 05:11 BMP [BASIC METABOLIC PANEL,BMP] [CHEM] AM CBC WITH AUTO DIFF [HEME] AM CRP [C-REACTIVE PROTEIN] [CHEM] AM MG [MAGNESIUM] [CHEM] AM 10/30/17 05:11 CBC WITH AUTO DIFF [HEME] AM CRP [C-REACTIVE PROTEIN] [CHEM] AM - Plan Plan:: Assessment/Plan: Acute: Bronchitis 2/2 Rhino/Enterovirus - Continue IV Azithromycin--> now on oral dose; may escalate pending repeat CXR - Sputum Cx, Mycoplasma/Strep pneumonia Ag tests--all negative so far - IS as directed if able to tolerate - He sounded worse today and his CRP is UP - He maybe aspirating from poor control of oral secretion - STOCK LAYER consult and Glycopyrrolate 0.2 mg IVP Q6PRN for Hypersecretion Generalized Weakness - 2/2 E-lytes Abnormality and Infection above - Pos troponin levels - UA, Chest CTA, CXR- all negative - CRP is 16.5--> 20.3 - Vit D level and TFT- both within normal limits - Continue PT/OT/RT Hypomagnesemia - Mg 1.7 - 2/2 Inadequate Intake - Replete and Monitor Resolved: S/p Elevated D-Dimer - 2.34 - Chest CTA negative S/p Respiratory Distress - Carries a hx/o COPD (Emphysematous change), Mild bibasilar fibrosis, and Several small sub-pleural blebs within the lung bases - Supplemental O2/bronchodilators - Ambulate as tolerated S/p Positive Troponin Levels - Cannot r/o ACS; CAD/HLD/HTN and HF - Lipid panel normal - Serial Troponin Level--trending down - CKMB x 2 -all normal E-lyte Abnormality - Na is 134--> 132--> 134 - Replete and monitor Chronic: AR CAD HF with Unknown EF HLD HTN MA Urinary Incontinence Back Pain Alzheimer's Disease Schizophrenia DM2 Anemia Plan: He looks worse today then yesterday clinically Repeat CXR May escalte Antibiotic pending CXR result Bumex 0.5 mg IVP X1 Routine AM Labs High Fall Risk Continue PT/OT/RT SW/CM for d/c planning Additional orders as above Code status: 1 LOS > 96 hrs due to slow response to treatment.
[2017-10-27] MEDS: LACTASE PO SCH ×2 (08:59→22:51)
[2017-10-27] MEDS: FLUTICASONE TOP SCH ×2 (08:59→22:50)
[2017-10-27] MEDS: Polyethylene Glycol 3350 Powder 17 GM Packet PO SCH (08:59)
[2017-10-27] MEDS: MEMANTINE HCL 21 MG PO SCH (08:59)
[2017-10-27] MEDS: Multivitamins,Therapeutic Tab PO SCH (09:00)
[2017-10-27] MEDS: risperiDONE 1 MG Tab PO SCH ×2 (09:00→22:50)
[2017-10-27] MEDS: Venlafaxine 75 MG Cap.ER PO SCH ×2 (09:01→17:01)
[2017-10-27] MEDS: Famotidine 20 MG Tab PO SCH (09:01)
[2017-10-27] MEDS: Divalproex Sodium Delayed-Release 250 MG Tab.CR PO SCH (09:01)
[2017-10-27] MEDS: Alogliptin 12.5 MG TABLET PO SCH (09:01)
[2017-10-27] MEDS ORDERED: Magnesium Oxide 400 MG Tab PO ONE (09:30)
[2017-10-27] MEDS ORDERED: Bumetanide 1 MG/4 ML MDV IVPUSH ONE ×2 (10:59→14:45)
[2017-10-27] MEDS ORDERED: Glycopyrrolate 0.2 MG/ML 5 ML MDV SUBCUT PRN (11:15)
[2017-10-27] MEDS: Simvastatin 10 MG Tab PO SCH (17:01)
[2017-10-27] MEDS: DIVALPROEX 250 MG PO SCH (22:48)
[2017-10-27] MEDS: CHOLECALCIFEROL 1000 UNIT PO SCH (22:48)
[2017-10-27] MEDS: Azithromycin 250 MG Tab PO SCH (22:49)
[2017-10-27] MEDS: Donepezil 10 MG Tab PO SCH (22:49)
[2017-10-28] MEDS: Trospium 20 MG Tab PO SCH ×2 (05:08→17:05)
[2017-10-28] MEDS: Levothyroxine 25 MCG Tab PO SCH (05:08)
--- NOTE | 2017-10-28 07:07 | PCM.PN ---
- General Info Date of Service: 10/28/17 Admission Dx/Problem (Free Text): Admission Diagnosis/Problem Admission Diagnosis/Problem Weakness Subjective Update: Follow Up Functional Status: Reports: Pain Controlled, Tolerating Diet, Urinating. Denies : New Symptoms - Review of Systems General: Denies: Fever, Weakness, Fatigue, Malaise, Chills HEENT: Reports: No Symptoms Pulmonary: Denies: Shortness of Breath, Cough, Sputum, Wheezing Cardiovascular: Denies: Chest Pain, Palpitations, Dyspnea on Exertion, Lightheadedness Gastrointestinal: Denies: Abdominal Pain, Decreased Appetite, Difficulty Swallowing, Nausea, Vomiting Genitourinary: Reports: No Symptoms Musculoskeletal: Reports: No Symptoms Skin: Reports: Cyanosis Neurological: Reports: Difficulty Walking, Weakness, Gait Disturbance. Denies: Confusion Psychiatric: Denies: Depression, Anxiety, Agitation, Hallucinations - Patient Data Vitals - Most Recent: Last Vital Signs Temp 37.2 C 10/28/17 04:55 Pulse 79 10/28/17 04:55 Resp 20 10/28/17 04:55 BP 125/87 10/28/17 04:55 Pulse Ox 92 L 10/28/17 04:55 Weight - Most Recent: 69.49 kg I&O - Last 24 Hours: Intake & Output 10/27/17 10/28/17 10/28/17 22:59 06:59 14:59 Intake Total 1200 480 Balance 1200 480 Lab Results Last 24 Hours: Laboratory Results - last 24 hr 10/27/17 10/27/17 10/27/17 Range/Units 05:44 09:31 17:00 WBC (4.23-9.07) K/mm3 RBC (4.63-6.08) M/mm3 Hgb (13.7-17.5) gm/L Hct (40.1-51.0) % MCV (79.0-92.2) fl MCH (25.7-32.2) pg MCHC (32.2-35.5) g/dl RDW Std Deviation (35.1-43.9) fL Plt Count (163-337) K/mm3 MPV (9.4-12.3) fl Neut % (Auto) (34.0-67.9) % Lymph % (Auto) (21.8-53.1) % [place] % (Auto) (5.3-12.2) % Eos % (Auto) (0.8-7.0) Baso % (Auto) (0.1-1.2) % Neut # (Auto) (1.78-5.38) K/mm3 Lymph # (Auto) (1.32-3.57) K/mm3 [place] # (Auto) (0.30-0.82) K/mm3 Eos # (Auto) (0.04-0.54) K/mm3 Baso # (Auto) (0.01-0.08) K/mm3 Manual Slide Review Sodium (136-145) mEq/L Potassium (3.5-5.1) mEq/L Chloride (98-107) mEq/L Carbon Dioxide (21-32) mEq/L Anion Gap (5-15) BUN (7-18) mg/dL Creatinine (0.7-1.3) mg/dL Est Cr Clr Drug Dosing mL/min Estimated GFR (MDRD) (>60) mL/min BUN/Creatinine Ratio (14-18) Glucose (83-115) mg/dL POC Glucose 169 H 113 H (83-110) mg/dL Calcium (8.5-10.1) mg/dL Magnesium (1.8-2.4) mg/dl C-Reactive Protein 20.3 H* (<1.0) mg/dL 10/28/17 10/28/17 Range/Units 05:48 05:48 WBC 5.76 (4.23-9.07) K/mm3 RBC 4.23 L (4.63-6.08) M/mm3 Hgb 13.9 (13.7-17.5) gm/L Hct 41.8 (40.1-51.0) % MCV 98.8 H (79.0-92.2) fl MCH 32.9 H (25.7-32.2) pg MCHC 33.3 (32.2-35.5) g/dl RDW Std Deviation 50.3 H (35.1-43.9) fL Plt Count 180 (163-337) K/mm3 MPV 11.1 (9.4-12.3) fl Neut % (Auto) 70.7 H (34.0-67.9) % Lymph % (Auto) 9.5 L (21.8-53.1) % [place] % (Auto) 15.6 H (5.3-12.2) % Eos % (Auto) 3.0 (0.8-7.0) Baso % (Auto) 0.3 (0.1-1.2) % Neut # (Auto) 4.07 (1.78-5.38) K/mm3 Lymph # (Auto) 0.55 L (1.32-3.57) K/mm3 [place] # (Auto) 0.90 H (0.30-0.82) K/mm3 Eos # (Auto) 0.17 (0.04-0.54) K/mm3 Baso # (Auto) 0.02 (0.01-0.08) K/mm3 Manual Slide Review Abnormal smear Sodium 138 (136-145) mEq/L Potassium 3.8 (3.5-5.1) mEq/L Chloride 102 (98-107) mEq/L Carbon Dioxide 27 (21-32) mEq/L Anion Gap 12.8 (5-15) BUN 17 (7-18) mg/dL Creatinine 1.0 (0.7-1.3) mg/dL Est Cr Clr Drug Dosing 52.96 mL/min Estimated GFR (MDRD) > 60 (>60) mL/min BUN/Creatinine Ratio 17.0 (14-18) Glucose 125 H (83-115) mg/dL POC Glucose (83-110) mg/dL Calcium 9.0 (8.5-10.1) mg/dL Magnesium 1.5 L (1.8-2.4) mg/dl C-Reactive Protein 14.2 H* (<1.0) mg/dL Adarsh Results Last 24 Hours: Microbiology 10/24/17 11:10 Aerobic Blood Culture - Preliminary Blood - Venous NO GROWTH AFTER 3 DAYS Anaerobic Blood Culture - Preliminary NO GROWTH AFTER 3 DAYS 10/24/17 11:00 Aerobic Blood Culture - Preliminary Blood - Venous - Lab Draw NO GROWTH AFTER 3 DAYS Anaerobic Blood Culture - Preliminary NO GROWTH AFTER 3 DAYS 10/26/17 03:08 Streptococcus pneumoniae Antigen (M - Final Urine Med Orders - Current: Current Medications Acetaminophen (Tylenol) 650 mg PO Q4H PRN PRN Reason: Pain (Mild 1-3)/fever Hydrocodone Bitart/Acetaminophen ([place] 325-5 Mg) 1 tab PO Q4H PRN PRN Reason: Pain (moderate 4-6) Acyclovir (Zovirax 5% Oint) 0 gm TOP 5XDAY PRN PRN Reason: coldsore Albuterol (Proventil Neb Soln) 2.5 mg INH Q4H PRN PRN Reason: Shortness of Breath Albuterol/Ipratropium (Duoneb 3.0-0.5 Mg/3 Ml) 3 ml NEB Q4H PRN PRN Reason: Shortness Of Breath/wheezing Last Admin: 10/27/17 06:15 Dose: 3 ml Alogliptin Benzoate (Alogliptin) 12.5 mg PO DAILY [facility] Last Admin: 10/27/17 09:01 Dose: 12.5 mg Azithromycin (Zithromax) 250 mg PO Q24H [facility] Last Admin: 10/27/17 22:49 Dose: 250 mg Baclofen (Lioresal) 10 mg PO DAILY PRN PRN Reason: Pain Bisacodyl (Dulcolax) 5 mg PO DAILY PRN PRN Reason: Constipation Carbamide Perox/Anhydrous Glycerin (Debrox 6.5% Otic Soln) 5 - 10 ml EARBOTH DAILY PRN PRN Reason: asdirected Cholecalciferol (Vitamin D3) 2,000 units PO BEDTIME [facility] Last Admin: 10/27/17 22:48 Dose: 2,000 units Divalproex Sodium (Divalproex Sodium) 250 mg PO DAILY [facility] Last Admin: 10/27/17 09:01 Dose: 250 mg Divalproex Sodium (Divalproex Sodium) 500 mg PO BEDTIME [facility] Last Admin: 10/27/17 22:48 Dose: 500 mg Docusate Sodium (Colace) 100 mg PO BID PRN PRN Reason: Constipation Donepezil HCl (Aricept) 10 mg PO BEDTIME [facility] Last Admin: 10/27/17 22:49 Dose: 10 mg Famotidine (Pepcid) 20 mg PO DAILY [facility] Last Admin: 10/27/17 09:01 Dose: 20 mg Glycopyrrolate (Robinul) 0.2 mg SUBCUT Q6H PRN PRN Reason: Hypersecretion Hydralazine HCl (Apresoline) 20 mg IVPUSH Q4H PRN PRN Reason: Hypertension Hydromorphone HCl (Dilaudid) 0.25 mg IVPUSH Q2H PRN PRN Reason: Pain (severe 7-10) Promethazine HCl 6.25 mg/ (Sodium Chloride) 50.25 mls @ 100 mls/hr IV Q6H PRN PRN Reason: Nausea/Vomiting Levothyroxine Sodium (Levothyroxine) 25 mcg PO ACBREAKFAST [facility] Last Admin: 10/28/17 05:08 Dose: 25 mcg Lorazepam (Ativan) 2 mg IVPUSH Q4H PRN PRN Reason: Seizures Lorazepam (Ativan) 0.25 mg IV Q6H PRN PRN Reason: Anxiety Magnesium Hydroxide (Milk Of Magnesia) 15 - 30 ml PO DAILY PRN PRN Reason: Constipation Magnesium Sulfate (Pharmacy To Dose - Magnesium Replacement) 1 dose .XX ASDIRECTED [facility] Metoprolol Tartrate (Lopressor) 5 mg IVPUSH Q4H PRN PRN Reason: Tachycardia Multivitamins (Thera) 1 each PO DAILY [facility] Last Admin: 10/27/17 09:00 Dose: 1 each Mupirocin (Bactroban Oint) 0 gm TOP BID PRN PRN Reason: as directed TO [facility] Fluticasone Nasal ([place] Own Med) 0 each TOP BID [facility] Last Admin: 10/27/17 22:50 Dose: 1 each Ondansetron HCl (Zofran) 4 mg IV Q6H PRN PRN Reason: Nausea/Vomiting Memantine Hcl 21 Mg 0 each PO DAILY [facility] Last Admin: 10/27/17 08:59 Dose: 1 each Lactases 3000 Fcc (Units Own Med) 0 each PO BID [facility] Last Admin: 10/27/17 22:51 Dose: 1.5 each Polyethylene Glycol (Miralax) 17 gm PO DAILY [facility] Last Admin: 10/27/17 08:59 Dose: 17 gm Potassium Chloride (Pharmacy To Dose - Potassium Replacement) 1 dose .XX ASDIRECTED [facility] Risperidone (Risperidal) 2 mg PO BID [facility] Last Admin: 10/27/17 22:50 Dose: 2 mg Senna/Docusate Sodium (Senna Plus) 1 tab PO BID PRN PRN Reason: Constipation Simvastatin (Zocor) 10 mg PO DAILY@1700 [facility] Last Admin: 10/27/17 17:01 Dose: 10 mg Sodium Chloride (Saline Flush) 10 ml FLUSH ONETIME PRN PRN Reason: IV FLUSH Last Admin: 10/24/17 12:39 Dose: 10 ml Sodium Chloride ([place] Nasal [place]) 0 ml NASBOTH DAILY PRN PRN Reason: as directed Trospium ([place]) 20 mg PO BIDAC [facility] Last Admin: 10/28/17 05:08 Dose: 20 mg Venlafaxine HCl (Effexor Xr) 75 mg PO DAILY@1700 [facility] Last Admin: 10/27/17 17:01 Dose: 75 mg Venlafaxine HCl (Effexor Xr) 150 mg PO DAILY [facility] Last Admin: 10/27/17 09:01 Dose: 150 mg Discontinued Medications Azithromycin (Zithromax) 500 mg IV Q24H [facility] Bumetanide (Bumex) 0.5 mg IVPUSH ONETIME ONE Stop: 10/27/17 11:00 Last Admin: 10/27/17 19:46 Dose: Not Given Bumetanide (Bumex) 0.5 mg IVPUSH ONETIME ONE Stop: 10/27/17 14:46 Last Admin: 10/27/17 15:39 Dose: 0.5 mg Caffeine (Caffeine) 100 mg PO ONETIME ONE Stop: 10/25/17 11:01 Last Admin: 10/25/17 11:14 Dose: 100 mg Donepezil HCl (Aricept) 10 mg PO BEDTIME [facility] Last Admin: 10/24/17 23:27 Dose: 10 mg Famotidine (Pepcid) 20 mg PO DAILY [facility] Last Admin: 10/25/17 11:06 Dose: Not Given Sodium Chloride (Normal Saline) 500 mls @ 1,000 mls/hr IV .BOLUS ONE Stop: 10/24/17 11:01 Last Admin: 10/24/17 10:49 Dose: 1,000 mls/hr Sodium Chloride (Normal Saline) 250 mls @ 80 mls/hr IV ASDIRECTED [facility] Last Admin: 10/24/17 13:34 Dose: 80 mls/hr Magnesium Sulfate 2 gm/ Premix 50 mls @ 50 mls/hr IV ONETIME STA Stop: 10/24/17 12:29 Last Admin: 10/24/17 12:01 Dose: 50 mls/hr Azithromycin 500 mg/ Sodium (Chloride) 250 mls @ 250 mls/hr IV ONETIME ONE Stop: 10/24/17 20:12 Last Admin: 10/24/17 20:05 Dose: 250 mls/hr Sodium Chloride (Normal Saline) 1,000 mls @ 80 mls/hr IV ASDIRECTED [facility] Last Admin: 10/27/17 00:34 Dose: 80 mls/hr Ceftriaxone Sodium 1 gm/ (Sodium Chloride) 100 mls @ 200 mls/hr IV Q24H [facility] Last Admin: 10/25/17 11:13 Dose: 200 mls/hr Azithromycin 500 mg/ Sodium (Chloride) 250 mls @ 250 mls/hr IV Q24H [facility] Last Admin: 10/25/17 20:14 Dose: 250 mls/hr Iopamidol (Isovue-370 (76%)) 50 ml IVPUSH ONETIME ONE Stop: 10/24/17 11:03 Last Admin: 10/24/17 12:38 Dose: 50 ml Iopamidol (Isovue-370 (76%)) 100 ml IVPUSH ONETIME ONE Stop: 10/24/17 11:03 Last Admin: 10/24/17 12:38 Dose: 50 ml Levothyroxine Sodium (Levothyroxine) 25 mcg PO ACBREAKFAST [facility] Last Admin: 10/25/17 11:05 Dose: Not Given Magnesium Oxide (Magnesium Oxide) 400 mg PO ONETIME ONE Stop: 10/24/17 18:01 Last Admin: 10/24/17 20:06 Dose: 400 mg Magnesium Oxide (Magnesium Oxide) 800 mg PO ONETIME ONE Stop: 10/27/17 09:31 Last Admin: 10/27/17 10:34 Dose: 800 mg Divalproex 250 Mg Er (Tab Own Med) 2 tab PO BEDTIME [facility] Last Admin: 10/24/17 23:55 Dose: 2 tab Lactases 3000 Fcc (Units Own Med) 0 tab PO BID [facility] Last Admin: 10/25/17 11:05 Dose: Not Given Risperidone 2 Mg (Own Med) 0 mg PO BID [facility] Last Admin: 10/25/17 11:05 Dose: Not Given Vesicare 10 Mg Own (Med) 0 mg PO BEDTIME [facility] Last Admin: 10/24/17 23:31 Dose: 10 mg Non-Formulary Medication (Acetaminophen [Tylenol]) 325 mg PO Q4H PRN PRN Reason: Pain Non-Formulary Medication (Non-Formulary Medication [Nf Drug]) 2 - 4 tsp PO ASDIRECTED PRN PRN Reason: Indigestion Pantoprazole Sodium (Protonix) 40 mg PO DAILY [facility] Last Admin: 10/25/17 11:06 Dose: Not Given Pantoprazole Sodium (Protonix) 40 mg PO DAILY [facility] Last Admin: 10/25/17 11:01 Dose: 40 mg Peg 3350 Electrolyte Powder For Oral Solution 0 each PO DAILY [facility] Last Admin: 10/25/17 11:05 Dose: Not Given Sitagliptin 50 Mg ( (Januvia)) 0 each PO DAILY [facility] Last Admin: 10/25/17 11:06 Dose: Not Given Risperidone 2 Mg (Own Med) 0 each PO BID [facility] Polyethylene Glycol (Miralax) 17 gm PO DAILY PRN PRN Reason: Constipation Simvastatin (Zocor) 10 mg PO DAILY@1700 [facility] Last Admin: 10/24/17 23:31 Dose: 10 mg Venlafaxine HCl (Effexor Xr) 75 mg PO DAILY@1700 [facility] Last Admin: 10/24/17 23:30 Dose: 75 mg - Exam General: Alert, Cooperative, No Acute Distress HEENT: Pupils Equal, Pupils Reactive, Mucous Membr. Moist/[place] Neck: Supple, Trachea Midline, No JVD Lungs: Normal Respiratory Effort, Decreased Breath Sounds. No: Clear to Auscultation Cardiovascular: Other (distant heart sounds) GI/Abdominal Exam: Normal Bowel Sounds, Soft, Non-Tender, No Organomegaly, No Distention, No Abnormal Bruit (Male) Exam: Deferred Back Exam: Normal Inspection, Decreased Range of Motion Extremities: Normal Inspection, Normal Range of Motion, Non-Tender, No Pedal Edema, Normal Capillary Refill Peripheral Pulses: 2+: Dorsalis Pedis (L), Dorsalis Pedis (R) Skin: Warm, Dry, Intact Neurological: No New Focal Deficit Psy/Mental Status: Alert, Normal Affect, Normal Mood - Problem List Review Problem List Initiated/Reviewed/Updated: Yes - My Orders Last 24 Hours: My Active Orders 10/27/17 11:00 Chest 1V Frontal [CR] Routine 10/27/17 11:15 Glycopyrrolate [Robinul] 0.2 mg SUBCUT Q6H PRN 10/27/17 11:19 Consult to Speech Language Pathology [PERPETUAL INVENTORY CLERK Evaluation and Treatment] [CONS] Routine 10/27/17 Dinner Mechanical Soft Diet [DIET] 10/29/17 05:11 BMP [BASIC METABOLIC PANEL,BMP] [CHEM] AM CBC WITH AUTO DIFF [HEME] AM CRP [C-REACTIVE PROTEIN] [CHEM] AM MG [MAGNESIUM] [CHEM] AM 10/30/17 05:11 CBC WITH AUTO DIFF [HEME] AM CRP [C-REACTIVE PROTEIN] [CHEM] AM - Plan Plan:: Assessment/Plan: Acute: Bronchitis 2/2 Rhino/Enterovirus, Improving - Continue IV Azithromycin--> now on oral dose; may escalate pending repeat CXR - Sputum Cx, Mycoplasma/Strep pneumonia Ag tests--all negative so far - IS as directed if able to tolerate - He sounded worse today and his CRP is UP - He maybe aspirating from poor control of oral secretion - PERPETUAL INVENTORY CLERK consult and Glycopyrrolate 0.2 mg IVP Q6PRN for Hypersecretion Generalized Weakness - 2/2 E-lytes Abnormality and Infection above - Pos troponin levels - UA, Chest CTA, CXR- all negative - CRP is 16.5--> 20.3 - Vit D level and TFT- both within normal limits - Continue PT/OT/RT Hypomagnesemia - This appears to be chronic - Mg 1.6-->1.9--> 1.6--> 1.5 - 2/2 Inadequate Intake - Replete and Monitor Resolved: S/p Elevated D-Dimer - 2.34 - Chest CTA negative S/p Respiratory Distress - Carries a hx/o COPD (Emphysematous change), Mild bibasilar fibrosis, and Several small sub-pleural blebs within the lung bases - Supplemental O2/bronchodilators - Ambulate as tolerated S/p Positive Troponin Levels - Cannot r/o ACS; CAD/HLD/HTN and HF - Lipid panel normal - Serial Troponin Level--trending down - CKMB x 2 -all normal E-lyte Abnormality - Na is 134--> 132--> 134 - Replete and monitor Chronic: AR CAD HF with Unknown EF HLD HTN GA Urinary Incontinence Back Pain Alzheimer's Disease Schizophrenia DM2 Anemia Plan: He looks much better clinically today Continue current treatment Bumex 0.5 mg IVP x1 Routine AM Labs High Fall Risk Continue PT/OT/RT SW/CM for d/c planning Additional orders as above Code status: 1 LOS > 96 hrs he needs 1-2 more days of treatment. If better, he may go sooner than expected.
[2017-10-28] MEDS: Polyethylene Glycol 3350 Powder 17 GM Packet PO SCH (08:08)
[2017-10-28] MEDS: Divalproex Sodium Delayed-Release 250 MG Tab.CR PO SCH (08:12)
[2017-10-28] MEDS: Alogliptin 12.5 MG TABLET PO SCH (08:12)
[2017-10-28] MEDS: Multivitamins,Therapeutic Tab PO SCH (08:12)
[2017-10-28] MEDS: Venlafaxine 75 MG Cap.ER PO SCH ×2 (08:12→17:05)
[2017-10-28] MEDS: Famotidine 20 MG Tab PO SCH (08:12)
[2017-10-28] MEDS: MEMANTINE HCL 21 MG PO SCH (08:13)
[2017-10-28] MEDS: risperiDONE 1 MG Tab PO SCH ×2 (08:13→20:32)
[2017-10-28] MEDS: LACTASE PO SCH ×2 (08:13→20:35)
[2017-10-28] MEDS: FLUTICASONE TOP SCH ×2 (08:13→20:36)
[2017-10-28] MEDS ORDERED: Bumetanide 1 MG/4 ML MDV IVPUSH ONE (08:44)
[2017-10-28] MEDS ORDERED: Magnesium Sulfate/Water 2 GM in Premix Bag 1 BAG IV ONE (09:30)
[2017-10-28] MEDS: Simvastatin 10 MG Tab PO SCH (17:05)
[2017-10-28] MEDS: CHOLECALCIFEROL 1000 UNIT PO SCH (20:32)
[2017-10-28] MEDS: Donepezil 10 MG Tab PO SCH (20:33)
[2017-10-28] MEDS: Azithromycin 250 MG Tab PO SCH (20:33)
[2017-10-28] MEDS: DIVALPROEX 250 MG PO SCH (20:34)
[2017-10-29] MEDS: Levothyroxine 25 MCG Tab PO SCH (06:10)
[2017-10-29] MEDS: Trospium 20 MG Tab PO SCH (06:10)
[2017-10-29] MEDS: Polyethylene Glycol 3350 Powder 17 GM Packet PO SCH (08:25)
[2017-10-29] MEDS: Multivitamins,Therapeutic Tab PO SCH (08:26)
[2017-10-29] MEDS: risperiDONE 1 MG Tab PO SCH (08:26)
[2017-10-29] MEDS: Venlafaxine 75 MG Cap.ER PO SCH (08:26)
[2017-10-29] MEDS: FLUTICASONE TOP SCH (08:27)
[2017-10-29] MEDS: Alogliptin 12.5 MG TABLET PO SCH (08:27)
[2017-10-29] MEDS: Famotidine 20 MG Tab PO SCH (08:27)
[2017-10-29] MEDS: Divalproex Sodium Delayed-Release 250 MG Tab.CR PO SCH (08:27)
[2017-10-29] MEDS: MEMANTINE HCL 21 MG PO SCH (08:28)
[2017-10-29] MEDS: LACTASE PO SCH (08:28)
--- NOTE | 2017-10-29 08:31 | CR ---
Chest: Frontal view of the chest was obtained. Comparison: Prior chest x-ray of 10/25/17. Heart is enlarged. Pulmonary vessels are felt to be slightly congested. Findings are an interval change from previous exam. Areas of scarring are seen within the mid left lung. Josefina B-lines noted within the left base. Previous sternotomy noted. Bony structures are osteopenic. Impression: 1. Findings suspicious for interval appearance of CHF. Diagnostic code #3 I agree with preliminary report from [facility], finalized at 10/27/17, 1:25 PM Central Time
--- NOTE | 2017-10-29 08:49 | PCM.PN ---
- General Info Date of Service: 10/29/17 Admission Dx/Problem (Free Text): Admission Diagnosis/Problem Admission Diagnosis/Problem Weakness - Patient Data Vitals - Most Recent: Last Vital Signs Temp 97.9 F 10/29/17 03:45 Pulse 95 10/29/17 03:45 Resp 20 10/29/17 03:45 BP 137/67 10/29/17 03:45 Pulse Ox 91 L 10/29/17 07:54 Weight - Most Recent: 151 lb 11.2 oz I&O - Last 24 Hours: Intake & Output 10/28/17 10/29/17 10/29/17 22:59 06:59 14:59 Intake Total 940 100 Balance 940 100 Lab Results Last 24 Hours: Laboratory Results - last 24 hr 10/28/17 10/29/17 10/29/17 Range/Units 17:02 05:54 05:54 WBC 5.31 (4.23-9.07) K/mm3 RBC 4.44 L (4.63-6.08) M/mm3 Hgb 14.4 (13.7-17.5) gm/L Hct 43.5 (40.1-51.0) % MCV 98.0 H (79.0-92.2) fl MCH 32.4 H (25.7-32.2) pg MCHC 33.1 (32.2-35.5) g/dl RDW Std Deviation 50.6 H (35.1-43.9) fL Plt Count 200 (163-337) K/mm3 MPV 10.6 (9.4-12.3) fl Neut % (Auto) 60.2 (34.0-67.9) % Lymph % (Auto) 15.1 L (21.8-53.1) % [place] % (Auto) 19.8 H (5.3-12.2) % Eos % (Auto) 2.8 (0.8-7.0) Baso % (Auto) 0.4 (0.1-1.2) % Neut # (Auto) 3.20 (1.78-5.38) K/mm3 Lymph # (Auto) 0.80 L (1.32-3.57) K/mm3 [place] # (Auto) 1.05 H (0.30-0.82) K/mm3 Eos # (Auto) 0.15 (0.04-0.54) K/mm3 Baso # (Auto) 0.02 (0.01-0.08) K/mm3 Manual Slide Review Normal smear Sodium 138 (136-145) mEq/L Potassium 4.1 (3.5-5.1) mEq/L Chloride 102 (98-107) mEq/L Carbon Dioxide 29 (21-32) mEq/L Anion Gap 11.1 (5-15) BUN 17 (7-18) mg/dL Creatinine 1.0 (0.7-1.3) mg/dL Est Cr Clr Drug Dosing 52.96 mL/min Estimated GFR (MDRD) > 60 (>60) mL/min BUN/Creatinine Ratio 17.0 (14-18) Glucose 142 H (83-115) mg/dL POC Glucose 164 H (83-110) mg/dL Calcium 9.2 (8.5-10.1) mg/dL Magnesium 1.8 (1.8-2.4) mg/dl C-Reactive Protein 8.3 H* (<1.0) mg/dL 10/29/17 Range/Units 08:24 WBC (4.23-9.07) K/mm3 RBC (4.63-6.08) M/mm3 Hgb (13.7-17.5) gm/L Hct (40.1-51.0) % MCV (79.0-92.2) fl MCH (25.7-32.2) pg MCHC (32.2-35.5) g/dl RDW Std Deviation (35.1-43.9) fL Plt Count (163-337) K/mm3 MPV (9.4-12.3) fl Neut % (Auto) (34.0-67.9) % Lymph % (Auto) (21.8-53.1) % [place] % (Auto) (5.3-12.2) % Eos % (Auto) (0.8-7.0) Baso % (Auto) (0.1-1.2) % Neut # (Auto) (1.78-5.38) K/mm3 Lymph # (Auto) (1.32-3.57) K/mm3 [place] # (Auto) (0.30-0.82) K/mm3 Eos # (Auto) (0.04-0.54) K/mm3 Baso # (Auto) (0.01-0.08) K/mm3 Manual Slide Review Sodium (136-145) mEq/L Potassium (3.5-5.1) mEq/L Chloride (98-107) mEq/L Carbon Dioxide (21-32) mEq/L Anion Gap (5-15) BUN (7-18) mg/dL Creatinine (0.7-1.3) mg/dL Est Cr Clr Drug Dosing mL/min Estimated GFR (MDRD) (>60) mL/min BUN/Creatinine Ratio (14-18) Glucose (83-115) mg/dL POC Glucose 164 H (83-110) mg/dL Calcium (8.5-10.1) mg/dL Magnesium (1.8-2.4) mg/dl C-Reactive Protein (<1.0) mg/dL Adarsh Results Last 24 Hours: Microbiology 10/24/17 11:10 Aerobic Blood Culture - Preliminary Blood - Venous NO GROWTH AFTER 4 DAYS Anaerobic Blood Culture - Preliminary NO GROWTH AFTER 4 DAYS 10/24/17 11:00 Aerobic Blood Culture - Preliminary Blood - Venous - Lab Draw NO GROWTH AFTER 4 DAYS Anaerobic Blood Culture - Preliminary NO GROWTH AFTER 4 DAYS Med Orders - Current: Current Medications Acetaminophen (Tylenol) 650 mg PO Q4H PRN PRN Reason: Pain (Mild 1-3)/fever Hydrocodone Bitart/Acetaminophen ([place] 325-5 Mg) 1 tab PO Q4H PRN PRN Reason: Pain (moderate 4-6) Acyclovir (Zovirax 5% Oint) 0 gm TOP 5XDAY PRN PRN Reason: coldsore Albuterol (Proventil Neb Soln) 2.5 mg INH Q4H PRN PRN Reason: Shortness of Breath Albuterol/Ipratropium (Duoneb 3.0-0.5 Mg/3 Ml) 3 ml NEB Q4H PRN PRN Reason: Shortness Of Breath/wheezing Last Admin: 10/27/17 06:15 Dose: 3 ml Alogliptin Benzoate (Alogliptin) 12.5 mg PO DAILY [facility] Last Admin: 10/29/17 08:27 Dose: 12.5 mg Azithromycin (Zithromax) 250 mg PO Q24H [facility] Last Admin: 10/28/17 20:33 Dose: 250 mg Baclofen (Lioresal) 10 mg PO DAILY PRN PRN Reason: Pain Bisacodyl (Dulcolax) 5 mg PO DAILY PRN PRN Reason: Constipation Carbamide Perox/Anhydrous Glycerin (Debrox 6.5% Otic Soln) 5 - 10 ml EARBOTH DAILY PRN PRN Reason: asdirected Cholecalciferol (Vitamin D3) 2,000 units PO BEDTIME [facility] Last Admin: 10/28/17 20:32 Dose: 2,000 units Divalproex Sodium (Divalproex Sodium) 250 mg PO DAILY [facility] Last Admin: 10/29/17 08:27 Dose: 250 mg Divalproex Sodium (Divalproex Sodium) 500 mg PO BEDTIME [facility] Last Admin: 10/28/17 20:34 Dose: 500 mg Docusate Sodium (Colace) 100 mg PO BID PRN PRN Reason: Constipation Donepezil HCl (Aricept) 10 mg PO BEDTIME [facility] Last Admin: 10/28/17 20:33 Dose: 10 mg Famotidine (Pepcid) 20 mg PO DAILY [facility] Last Admin: 10/29/17 08:27 Dose: 20 mg Glycopyrrolate (Robinul) 0.2 mg SUBCUT Q6H PRN PRN Reason: Hypersecretion Hydralazine HCl (Apresoline) 20 mg IVPUSH Q4H PRN PRN Reason: Hypertension Hydromorphone HCl (Dilaudid) 0.25 mg IVPUSH Q2H PRN PRN Reason: Pain (severe 7-10) Promethazine HCl 6.25 mg/ (Sodium Chloride) 50.25 mls @ 100 mls/hr IV Q6H PRN PRN Reason: Nausea/Vomiting Levothyroxine Sodium (Levothyroxine) 25 mcg PO ACBREAKFAST [facility] Last Admin: 10/29/17 06:10 Dose: 25 mcg Lorazepam (Ativan) 2 mg IVPUSH Q4H PRN PRN Reason: Seizures Lorazepam (Ativan) 0.25 mg IV Q6H PRN PRN Reason: Anxiety Magnesium Hydroxide (Milk Of Magnesia) 15 - 30 ml PO DAILY PRN PRN Reason: Constipation Magnesium Sulfate (Pharmacy To Dose - Magnesium Replacement) 1 dose .XX ASDIRECTED [facility] Metoprolol Tartrate (Lopressor) 5 mg IVPUSH Q4H PRN PRN Reason: Tachycardia Multivitamins (Thera) 1 each PO DAILY [facility] Last Admin: 10/29/17 08:26 Dose: 1 each Mupirocin (Bactroban Oint) 0 gm TOP BID PRN PRN Reason: as directed TO [facility] Fluticasone Nasal ([place] Own Med) 0 each TOP BID [facility] Last Admin: 10/29/17 08:27 Dose: 1 each Ondansetron HCl (Zofran) 4 mg IV Q6H PRN PRN Reason: Nausea/Vomiting Memantine Hcl 21 Mg 0 each PO DAILY [facility] Last Admin: 10/29/17 08:28 Dose: 1 each Lactases 3000 Fcc (Units Own Med) 0 each PO BID [facility] Last Admin: 10/29/17 08:28 Dose: 1.5 each Polyethylene Glycol (Miralax) 17 gm PO DAILY [facility] Last Admin: 10/29/17 08:25 Dose: 17 gm Potassium Chloride (Pharmacy To Dose - Potassium Replacement) 1 dose .XX ASDIRECTED [facility] Risperidone (Risperidal) 2 mg PO BID [facility] Last Admin: 10/29/17 08:26 Dose: 2 mg Senna/Docusate Sodium (Senna Plus) 1 tab PO BID PRN PRN Reason: Constipation Simvastatin (Zocor) 10 mg PO DAILY@1700 [facility] Last Admin: 10/28/17 17:05 Dose: 10 mg Sodium Chloride (Saline Flush) 10 ml FLUSH ONETIME PRN PRN Reason: IV FLUSH Last Admin: 10/24/17 12:39 Dose: 10 ml Sodium Chloride ([place] Nasal [place]) 0 ml NASBOTH DAILY PRN PRN Reason: as directed Trospium (Sanctura) 20 mg PO BIDAC [facility] Last Admin: 10/29/17 06:10 Dose: 20 mg Venlafaxine HCl (Effexor Xr) 75 mg PO DAILY@1700 [facility] Last Admin: 10/28/17 17:05 Dose: 75 mg Venlafaxine HCl (Effexor Xr) 150 mg PO DAILY [facility] Last Admin: 10/29/17 08:26 Dose: 150 mg Discontinued Medications Azithromycin (Zithromax) 500 mg IV Q24H [facility] Bumetanide (Bumex) 0.5 mg IVPUSH ONETIME ONE Stop: 05/19/18 11:00 Last Admin: 10/27/17 19:46 Dose: Not Given Bumetanide (Bumex) 0.5 mg IVPUSH ONETIME ONE Stop: 10/27/17 14:46 Last Admin: 10/27/17 15:39 Dose: 0.5 mg Bumetanide (Bumex) 0.5 mg IVPUSH ONETIME ONE Stop: 10/28/17 08:45 Last Admin: 10/28/17 09:17 Dose: 0.5 mg Caffeine (Caffeine) 100 mg PO ONETIME ONE Stop: 10/25/17 11:01 Last Admin: 10/25/17 11:14 Dose: 100 mg Donepezil HCl (Aricept) 10 mg PO BEDTIME [facility] Last Admin: 10/24/17 23:27 Dose: 10 mg Famotidine (Pepcid) 20 mg PO DAILY [facility] Last Admin: 10/25/17 11:06 Dose: Not Given Sodium Chloride (Normal Saline) 500 mls @ 1,000 mls/hr IV .BOLUS ONE Stop: 10/24/17 11:01 Last Admin: 10/24/17 10:49 Dose: 1,000 mls/hr Sodium Chloride (Normal Saline) 250 mls @ 80 mls/hr IV ASDIRECTED [facility] Last Admin: 10/24/17 13:34 Dose: 80 mls/hr Magnesium Sulfate 2 gm/ Premix 50 mls @ 50 mls/hr IV ONETIME STA Stop: 10/24/17 12:29 Last Admin: 10/24/17 12:01 Dose: 50 mls/hr Azithromycin 500 mg/ Sodium (Chloride) 250 mls @ 250 mls/hr IV ONETIME ONE Stop: 10/24/17 20:12 Last Admin: 10/24/17 20:05 Dose: 250 mls/hr Sodium Chloride (Normal Saline) 1,000 mls @ 80 mls/hr IV ASDIRECTED [facility] Last Admin: 10/27/17 00:34 Dose: 80 mls/hr Ceftriaxone Sodium 1 gm/ (Sodium Chloride) 100 mls @ 200 mls/hr IV Q24H [facility] Last Admin: 10/25/17 11:13 Dose: 200 mls/hr Azithromycin 500 mg/ Sodium (Chloride) 250 mls @ 250 mls/hr IV Q24H [facility] Last Admin: 10/25/17 20:14 Dose: 250 mls/hr Magnesium Sulfate 2 gm/ Premix 50 mls @ 25 mls/hr IV ONETIME ONE Stop: 10/28/17 11:29 Last Admin: 10/28/17 11:05 Dose: 25 mls/hr Iopamidol (Isovue-370 (76%)) 50 ml IVPUSH ONETIME ONE Stop: 10/24/17 11:03 Last Admin: 10/24/17 12:38 Dose: 50 ml Iopamidol (Isovue-370 (76%)) 100 ml IVPUSH ONETIME ONE Stop: 10/24/17 11:03 Last Admin: 10/24/17 12:38 Dose: 50 ml Levothyroxine Sodium (Levothyroxine) 25 mcg PO ACBREAKFAST [facility] Last Admin: 10/25/17 11:05 Dose: Not Given Magnesium Oxide (Magnesium Oxide) 400 mg PO ONETIME ONE Stop: 10/24/17 18:01 Last Admin: 10/24/17 20:06 Dose: 400 mg Magnesium Oxide (Magnesium Oxide) 800 mg PO ONETIME ONE Stop: 10/27/17 09:31 Last Admin: 10/27/17 10:34 Dose: 800 mg Divalproex 250 Mg Er (Tab Own Med) 2 tab PO BEDTIME [facility] Last Admin: 10/24/17 23:55 Dose: 2 tab Lactases 3000 Fcc (Units Own Med) 0 tab PO BID [facility] Last Admin: 10/25/17 11:05 Dose: Not Given Risperidone 2 Mg (Own Med) 0 mg PO BID [facility] Last Admin: 10/25/17 11:05 Dose: Not Given Vesicare 10 Mg Own (Med) 0 mg PO BEDTIME [facility] Last Admin: 10/24/17 23:31 Dose: 10 mg Non-Formulary Medication (Acetaminophen [Tylenol]) 325 mg PO Q4H PRN PRN Reason: Pain Non-Formulary Medication (Non-Formulary Medication [Nf Drug]) 2 - 4 tsp PO ASDIRECTED PRN PRN Reason: Indigestion Pantoprazole Sodium (Protonix) 40 mg PO DAILY [facility] Last Admin: 10/25/17 11:06 Dose: Not Given Pantoprazole Sodium (Protonix) 40 mg PO DAILY [facility] Last Admin: 10/25/17 11:01 Dose: 40 mg Peg 3350 Electrolyte Powder For Oral Solution 0 each PO DAILY [facility] Last Admin: 10/25/17 11:05 Dose: Not Given Sitagliptin 50 Mg ( (Januvia)) 0 each PO DAILY [facility] Last Admin: 10/25/17 11:06 Dose: Not Given Risperidone 2 Mg (Own Med) 0 each PO BID [facility] Polyethylene Glycol (Miralax) 17 gm PO DAILY PRN PRN Reason: Constipation Simvastatin (Zocor) 10 mg PO DAILY@1700 [facility] Last Admin: 10/24/17 23:31 Dose: 10 mg Venlafaxine HCl (Effexor Xr) 75 mg PO DAILY@1700 [facility] Last Admin: 10/24/17 23:30 Dose: 75 mg - Plan Plan:: Assessment/Plan: Acute: Bronchitis 2/2 Rhino/Enterovirus, Improving - Continue IV Azithromycin--> now on oral dose; may escalate pending repeat CXR - Sputum Cx, Mycoplasma/Strep pneumonia Ag tests--all negative so far - IS as directed if able to tolerate - He sounded worse today and his CRP is UP - He maybe aspirating from poor control of oral secretion - [employer] consult and Glycopyrrolate 0.2 mg IVP Q6PRN for Hypersecretion Generalized Weakness - 2/2 E-lytes Abnormality and Infection above - Pos troponin levels - UA, Chest CTA, CXR- all negative - CRP is 16.5--> 20.3 - Vit D level and TFT- both within normal limits - Continue PT/OT/RT Hypomagnesemia - This appears to be chronic - Mg 1.6-->1.9--> 1.6--> 1.5 - 2/2 Inadequate Intake - Replete and Monitor Resolved: S/p Elevated D-Dimer - 2.34 - Chest CTA negative S/p Respiratory Distress - Carries a hx/o COPD (Emphysematous change), Mild bibasilar fibrosis, and Several small sub-pleural blebs within the lung bases - Supplemental O2/bronchodilators - Ambulate as tolerated S/p Positive Troponin Levels - Cannot r/o ACS; CAD/HLD/HTN and HF - Lipid panel normal - Serial Troponin Level--trending down - CKMB x 2 -all normal E-lyte Abnormality - Na is 134--> 132--> 134 - Replete and monitor Chronic: AR CAD HF with Unknown EF HLD HTN FL Urinary Incontinence Back Pain Alzheimer's Disease Schizophrenia DM2 Anemia Plan: He looks much better clinically today Continue current treatment Bumex 0.5 mg IVP x1 Routine AM Labs High Fall Risk Continue PT/OT/RT SW/CM for d/c planning Additional orders as above Code status: 1 LOS > 96 hrs he needs 1-2 more days of treatment. If better, he may go sooner than expected.
--- NOTE | 2017-10-29 09:03 | PCM.DCSUM1 ---
Discharge Summary - Hospital Course HPI Initial Comments: This is a 69-year-old elderly white male with past medical history of allergic rhinitis, coronary artery disease, heart failure with unknown ejection fraction , hyperlipidemia, history of ND, urinary incontinence, chronic back pain, anemia , and type 2 diabetes who comes in for evaluation of 2 day history of nonproductive cough associated with generalized weakness. No reports of fever or chills. No issues related to GI or . Patient carries a history of alzheimer's dementia with discussed schizophrenia. He is not able to provide pertinent information. His history of present illness was supplied by his caregivers. His initial workup in the emergency department shows a CBC remarkable for RBC of 4.35, MCV of 97.9, MCH of 33.1, RDW of 49.8, neutrophils of 78%, and lymphocytes of 8%. His coagulation studies show PT of 10.9, INR of 1, APTT of 34 ,and d-dimer of 2.31. His ABG results show pH of 7.41, PCO2 of 36, PO2 of 65, HCO3 of 22.1, O2 saturation of 91.2 on RA with 21% FiO2. His chemistry is significant for sodium of 134, glucose of 126, magnesium of 1.6, troponin of 0.104, and 0.111, and proBNP of 2197. His UDS is negative for UTI. Chest x-ray shows no acute abnormal findings. Chest CTA report reads no findings of pulmonary embolism. Emphysematous change with mild bibasilar fibrosis. Several small subpleural blebs are seen within the lung bases. No acute parenchymal changes seen. Patient is being admitted for medical evaluation of generalized weakness. He is DNR/DNI. - Discharge Data Discharge Date: 10/29/17 (Admit date: 10/25/17) Discharge Disposition: DC/Tfer to Other 69 Condition: Good - Discharge Diagnosis/Problem(s) (1) Acute bronchitis due to Rhinovirus SNOMED Code(s): 704647005 ICD Code: J20.6 - ACUTE BRONCHITIS DUE TO RHINOVIRUS Status: Acute Priority: High Current Visit: Yes (2) Infection, enterovirus SNOMED Code(s): 05258024 ICD Code: B34.1 - ENTEROVIRUS INFECTION, UNSPECIFIED Status: Acute Priority: High Current Visit: Yes (3) Generalized weakness SNOMED Code(s): 08516120 ICD Code: R53.1 - WEAKNESS Status: Acute Priority: High Current Visit: Yes (4) Hypomagnesemia SNOMED Code(s): 065282233 ICD Code: E83.42 - HYPOMAGNESEMIA Status: Resolved Current Visit: Yes (5) Bronchitis SNOMED Code(s): 46802898 ICD Code: J40 - BRONCHITIS, NOT SPECIFIED ACUTE OR CHRONIC Status: Acute Priority: High Current Visit: Yes (6) Elevated troponin SNOMED Code(s): 021377712, 642710683, 983304503 ICD Code: R74.8 - ABNORMAL LEVELS OF OTHER SERUM ENZYMES Status: Acute Priority: High Current Visit: Yes - Patient Summary/Data Consults: Consultations 10/24/17 16:50 Consult to Case Management [CONS] Routine Consult to School Age Teacher [CONS] Routine Consult to Spiritual Care [CONS] Routine OT Evaluation and Treatment [CONS] Routine PT Evaluation and Treatment [CONS] Routine 10/27/17 11:19 Consult to Speech Language Pathology [AIX ADMINISTRATOR Evaluation and Treatment] [CONS] Routine Labs Pending at D/C: None Hospital Course: Assessment/Plan: Acute: Bronchitis 2/2 Rhino/Enterovirus, Improving - Continue IV Azithromycin--> now on oral dose; may escalate pending repeat CXR - Sputum Cx, Mycoplasma/Strep pneumonia Ag tests--all negative so far - IS as directed if able to tolerate - He sounded worse today and his CRP is UP - He maybe aspirating from poor control of oral secretion - AIX ADMINISTRATOR consult and Glycopyrrolate 0.2 mg IVP Q6PRN for Hypersecretion Generalized Weakness - 2/2 E-lytes Abnormality and Infection above - Pos troponin levels - trending downward - UA, Chest CTA, CXR- all negative - CRP is 16.5--> 20.3-->14.02-->8.3 - Vit D level and TFT- both within normal limits - Continue PT/OT/RT Hypomagnesemia - This appears to be chronic - Mg 1.6-->1.9--> 1.6--> 1.5-->1.8 - 2/2 Inadequate Intake - Replete and Monitor Resolved: S/p Elevated D-Dimer - 2.34 - Chest CTA negative S/p Respiratory Distress - Carries a hx/o COPD (Emphysematous change), Mild bibasilar fibrosis, and Several small sub-pleural blebs within the lung bases - Supplemental O2/bronchodilators - Ambulate as tolerated S/p Positive Troponin Levels - Cannot r/o ACS; CAD/HLD/HTN and HF - Lipid panel normal - Serial Troponin Level--trending down - CKMB x 2 -all normal E-lyte Abnormality - Na is 134--> 132--> 134-->138 - Replete and monitor Chronic: AR CAD HF with Unknown EF HLD HTN ND Urinary Incontinence Back Pain Alzheimer's Disease Schizophrenia DM2 Anemia Plan: He looks much better clinically today Continue current treatment Bumex 0.5 mg IVP x1 Routine AM Labs High Fall Risk Continue PT/OT/RT SW/CM for d/c planning Additional orders as above Code status: 1 Overall Franco did quite well and he continues to improve. He finished a 5 day course of azithromycin. He has been weaned off oxygen. He was positive for human rhinovirus and also enterovirus. His infectious workup was otherwise negative and he has had no leukocytosis. His CRP is trending downward. His troponin was elevated and has trended downward. His D-dimer was elevated, however CTA was negaive. AIX ADMINISTRATOR evaluated him and recommended Dyspahgia mechanical altered with nectar thickened liquids, straw and sippy cup. They suggest upright 90 degrees to feed and alternating liquids and solids. His weakness is improving however, he is still requiring assistance. Because of this we are recommending outpatient PT. He is a resident of [facility] and will return there. He has home nebulized albuterol listed on his home med list which he should continue. Otherwise no new medications. We are recommending follow-up with PCP within 7-10 days, sooner if needed. We also suggest he continues to utilize his IS until symptoms resolve. His intake had been quite poor prior to admission and his electrolytes were off. He was supplemented and returned to normal. Suggest follow-up BMP and magnesium check with PCP at upcoming appointment. He will be discharged today back to [facility]. - Patient Instructions Diet: Mechanical Soft Diet, Other: with necter thick liquids, and frequent sips between bites. Activity: As Tolerated Driving: Do Not Drive Notify Provider of: Fever, Increased Pain, Nausea and/or Vomiting - Discharge Plan Home Medications: Home Meds Cholecalciferol (Vitamin D3) [Vitamin D3] 2 tab PO DAILY 04/05/16 [History] Donepezil [Aricept] 10 mg PO BEDTIME 04/05/16 [History] Famotidine 20 mg PO DAILY 04/05/16 [History] Fluticasone/Sod Chl/Sod Bicarb [Ticanase Kit] 1 spray NASBOTH BID 04/05/16 [ History] Lactase 1.5 tab PO BID 04/05/16 [History] Memantine HCl [Namenda Xr] 21 mg PO DAILY 04/05/16 [History] Multivit-Min/FA/Lycopene/Lut [Certavite Sr-Antioxidant Tab] 1 tab PO DAILY 04/05 [History] Simvastatin [Zocor] 10 mg PO BEDTIME 04/05/16 [History] SitaGLIPtin [Januvia] 50 mg PO DAILY 04/05/16 [History] Solifenacin Succinate [Vesicare] 10 mg PO 2000 04/05/16 [History] Venlafaxine HCl [Venlafaxine ER] 75 mg PO ASDIRECTED 04/05/16 [History] risperiDONE 2 mg PO BID 04/05/16 [History] Acyclovir [Zovirax 5% Oint] 1 dose TOP 5XDAY PRN 12/17/16 [History] Divalproex Sodium [Divalproex Sodium ER] 2 tab PO BEDTIME 12/17/16 [History] Albuterol [IJP: Albuterol] 2.5 mg INH QID PRN 12/22/16 [History] Carbamide Peroxide [Ear Drops] 5 - 10 drop EARBOTH BID PRN 12/22/16 [History] Divalproex Sodium 250 mg PO DAILY 12/22/16 [History] Mupirocin Oint [Bactroban Oint] 1 applic TOP BID PRN 12/22/16 [History] Sodium Chloride/Sodium Bicarb [[place] Saline [place]] 1 spray NASBOTH DAILY PRN 12/22/16 [History] Acetaminophen [Tylenol] 325 mg PO Q4H PRN 10/24/17 [History] Baclofen 10 mg PO TID PRN 10/24/17 [History] Hydrocodone/Acetaminophen [Hydrocodon-Acetaminophen 5-325] 1 tab PO Q4HR PRN [History] LORazepam 0.5 mg PO ASDIRECTED PRN 10/24/17 [History] Levothyroxine 25 mcg PO ACBREAKFAST 10/24/17 [History] Magnesium Hydroxide [Milk of Magnesia] 15 - 30 ml PO DAILY PRN 10/24/17 [History ] Non-Formulary Medication [NF Drug] 2 - 4 tsp PO ASDIRECTED PRN 10/24/17 [History ] PEG 3350/Na Sulf,Bicarb,Cl/KCl [Peg 3350 Electrolyte] 1 cap PO DAILY 10/24/17 [ History] Pantoprazole Sodium 40 mg PO DAILY 10/24/17 [History] Patient Handouts: Weakness, [id number], Acute Bronchitis, Adult, Zqas-[id number] , Upper Respiratory Infection, Adult, [id number] Referrals: Taiwo Sinha MD [Primary Care Provider] - (Make Follow-up appointment in 7-10 days or sooner if needed.) - Discharge Summary/Plan Comment DC Time >30 min.: Yes (45 mins ) - General Info Date of Service: 10/29/17 Admission Dx/Problem (Free Text: Lower back pain and cough Subjective Update: In to see Franco. He is sitting up in the chair. He has no complaints. He is excited to go back to [facility]. No overnight concerns. Nursing has no concerns. He will be discharged today. Functional Status: Reports: Pain Controlled, Tolerating Diet, Ambulating, Urinating, Incentive Spirometry. Denies: New Symptoms - Review of Systems General: Reports: Weakness (improving ), Fatigue (improving ) HEENT: Reports: No Symptoms Pulmonary: Reports: Shortness of Breath, Cough, Sputum, Wheezing Cardiovascular: Reports: Dyspnea on Exertion. Denies: Chest Pain, Palpitations , Edema, Lightheadedness Gastrointestinal: Reports: No Symptoms. Denies: Abdominal Pain, Constipation, Diarrhea, Nausea, Vomiting Genitourinary: Reports: No Symptoms Musculoskeletal: Reports: No Symptoms Skin: Reports: No Symptoms Neurological: Reports: Difficulty Walking, Weakness, Gait Disturbance. Denies: Numbness, Pre-Existing Deficit, Trouble Speaking, Change in Speech Psychiatric: Reports: No Symptoms - Patient Data Vitals - Most Recent: Last Vital Signs Temp 97.9 F 10/29/17 03:45 Pulse 95 10/29/17 03:45 Resp 20 10/29/17 03:45 BP 137/67 10/29/17 03:45 Pulse Ox 91 L 10/29/17 07:54 Weight - Most Recent: 151 lb 11.2 oz I&O - Last 24 hours: Intake & Output 10/28/17 10/29/17 10/29/17 22:59 06:59 14:59 Intake Total 940 100 Balance 940 100 Lab Results - Last 24 hrs: Laboratory Results - last 24 hr 10/28/17 10/29/17 10/29/17 Range/Units 17:02 05:54 05:54 WBC 5.31 (4.23-9.07) K/mm3 RBC 4.44 L (4.63-6.08) M/mm3 Hgb 14.4 (13.7-17.5) gm/L Hct 43.5 (40.1-51.0) % MCV 98.0 H (79.0-92.2) fl MCH 32.4 H (25.7-32.2) pg MCHC 33.1 (32.2-35.5) g/dl RDW Std Deviation 50.6 H (35.1-43.9) fL Plt Count 200 (163-337) K/mm3 MPV 10.6 (9.4-12.3) fl Neut % (Auto) 60.2 (34.0-67.9) % Lymph % (Auto) 15.1 L (21.8-53.1) % [place] % (Auto) 19.8 H (5.3-12.2) % Eos % (Auto) 2.8 (0.8-7.0) Baso % (Auto) 0.4 (0.1-1.2) % Neut # (Auto) 3.20 (1.78-5.38) K/mm3 Lymph # (Auto) 0.80 L (1.32-3.57) K/mm3 [place] # (Auto) 1.05 H (0.30-0.82) K/mm3 Eos # (Auto) 0.15 (0.04-0.54) K/mm3 Baso # (Auto) 0.02 (0.01-0.08) K/mm3 Manual Slide Review Normal smear Sodium 138 (136-145) mEq/L Potassium 4.1 (3.5-5.1) mEq/L Chloride 102 (98-107) mEq/L Carbon Dioxide 29 (21-32) mEq/L Anion Gap 11.1 (5-15) BUN 17 (7-18) mg/dL Creatinine 1.0 (0.7-1.3) mg/dL Est Cr Clr Drug Dosing 52.96 mL/min Estimated GFR (MDRD) > 60 (>60) mL/min BUN/Creatinine Ratio 17.0 (14-18) Glucose 142 H (83-115) mg/dL POC Glucose 164 H (83-110) mg/dL Calcium 9.2 (8.5-10.1) mg/dL Magnesium 1.8 (1.8-2.4) mg/dl C-Reactive Protein 8.3 H* (<1.0) mg/dL 10/29/17 Range/Units 08:24 WBC (4.23-9.07) K/mm3 RBC (4.63-6.08) M/mm3 Hgb (13.7-17.5) gm/L Hct (40.1-51.0) % MCV (79.0-92.2) fl MCH (25.7-32.2) pg MCHC (32.2-35.5) g/dl RDW Std Deviation (35.1-43.9) fL Plt Count (163-337) K/mm3 MPV (9.4-12.3) fl Neut % (Auto) (34.0-67.9) % Lymph % (Auto) (21.8-53.1) % [place] % (Auto) (5.3-12.2) % Eos % (Auto) (0.8-7.0) Baso % (Auto) (0.1-1.2) % Neut # (Auto) (1.78-5.38) K/mm3 Lymph # (Auto) (1.32-3.57) K/mm3 [place] # (Auto) (0.30-0.82) K/mm3 Eos # (Auto) (0.04-0.54) K/mm3 Baso # (Auto) (0.01-0.08) K/mm3 Manual Slide Review Sodium (136-145) mEq/L Potassium (3.5-5.1) mEq/L Chloride (98-107) mEq/L Carbon Dioxide (21-32) mEq/L Anion Gap (5-15) BUN (7-18) mg/dL Creatinine (0.7-1.3) mg/dL Est Cr Clr Drug Dosing mL/min Estimated GFR (MDRD) (>60) mL/min BUN/Creatinine Ratio (14-18) Glucose (83-115) mg/dL POC Glucose 164 H (83-110) mg/dL Calcium (8.5-10.1) mg/dL Magnesium (1.8-2.4) mg/dl C-Reactive Protein (<1.0) mg/dL MELISA Results - Last 24 hrs: Microbiology 10/24/17 11:10 Aerobic Blood Culture - Preliminary Blood - Venous NO GROWTH AFTER 4 DAYS Anaerobic Blood Culture - Preliminary NO GROWTH AFTER 4 DAYS 10/24/17 11:00 Aerobic Blood Culture - Preliminary Blood - Venous - Lab Draw NO GROWTH AFTER 4 DAYS Anaerobic Blood Culture - Preliminary NO GROWTH AFTER 4 DAYS Med Orders - Current: Current Medications Acetaminophen (Tylenol) 650 mg PO Q4H PRN PRN Reason: Pain (Mild 1-3)/fever Hydrocodone Bitart/Acetaminophen ([place] 325-5 Mg) 1 tab PO Q4H PRN PRN Reason: Pain (moderate 4-6) Acyclovir (Zovirax 5% Oint) 0 gm TOP 5XDAY PRN PRN Reason: coldsore Albuterol (Proventil Neb Soln) 2.5 mg INH Q4H PRN PRN Reason: Shortness of Breath Albuterol/Ipratropium (Duoneb 3.0-0.5 Mg/3 Ml) 3 ml NEB Q4H PRN PRN Reason: Shortness Of Breath/wheezing Last Admin: 10/27/17 06:15 Dose: 3 ml Alogliptin Benzoate (Alogliptin) 12.5 mg PO DAILY [facility] Last Admin: 10/29/17 08:27 Dose: 12.5 mg Azithromycin (Zithromax) 250 mg PO Q24H [facility] Last Admin: 10/28/17 20:33 Dose: 250 mg Baclofen (Lioresal) 10 mg PO DAILY PRN PRN Reason: Pain Bisacodyl (Dulcolax) 5 mg PO DAILY PRN PRN Reason: Constipation Carbamide Perox/Anhydrous Glycerin (Debrox 6.5% Otic Soln) 5 - 10 ml EARBOTH DAILY PRN PRN Reason: asdirected Cholecalciferol (Vitamin D3) 2,000 units PO BEDTIME [facility] Last Admin: 10/28/17 20:32 Dose: 2,000 units Divalproex Sodium (Divalproex Sodium) 250 mg PO DAILY [facility] Last Admin: 10/29/17 08:27 Dose: 250 mg Divalproex Sodium (Divalproex Sodium) 500 mg PO BEDTIME [facility] Last Admin: 10/28/17 20:34 Dose: 500 mg Docusate Sodium (Colace) 100 mg PO BID PRN PRN Reason: Constipation Donepezil HCl (Aricept) 10 mg PO BEDTIME [facility] Last Admin: 10/28/17 20:33 Dose: 10 mg Famotidine (Pepcid) 20 mg PO DAILY [facility] Last Admin: 10/29/17 08:27 Dose: 20 mg Glycopyrrolate (Robinul) 0.2 mg SUBCUT Q6H PRN PRN Reason: Hypersecretion Hydralazine HCl (Apresoline) 20 mg IVPUSH Q4H PRN PRN Reason: Hypertension Hydromorphone HCl (Dilaudid) 0.25 mg IVPUSH Q2H PRN PRN Reason: Pain (severe 7-10) Promethazine HCl 6.25 mg/ (Sodium Chloride) 50.25 mls @ 100 mls/hr IV Q6H PRN PRN Reason: Nausea/Vomiting Levothyroxine Sodium (Levothyroxine) 25 mcg PO ACBREAKFAST [facility] Last Admin: 10/29/17 06:10 Dose: 25 mcg Lorazepam (Ativan) 2 mg IVPUSH Q4H PRN PRN Reason: Seizures Lorazepam (Ativan) 0.25 mg IV Q6H PRN PRN Reason: Anxiety Magnesium Hydroxide (Milk Of Magnesia) 15 - 30 ml PO DAILY PRN PRN Reason: Constipation Magnesium Sulfate (Pharmacy To Dose - Magnesium Replacement) 1 dose .XX ASDIRECTED [facility] Metoprolol Tartrate (Lopressor) 5 mg IVPUSH Q4H PRN PRN Reason: Tachycardia Multivitamins (Thera) 1 each PO DAILY [facility] Last Admin: 10/29/17 08:26 Dose: 1 each Mupirocin (Bactroban Oint) 0 gm TOP BID PRN PRN Reason: as directed TO [facility] Fluticasone Nasal ([place] Own Med) 0 each TOP BID [facility] Last Admin: 10/29/17 08:27 Dose: 1 each Ondansetron HCl (Zofran) 4 mg IV Q6H PRN PRN Reason: Nausea/Vomiting Memantine Hcl 21 Mg 0 each PO DAILY [facility] Last Admin: 10/29/17 08:28 Dose: 1 each Lactases 3000 Fcc (Units Own Med) 0 each PO BID [facility] Last Admin: 10/29/17 08:28 Dose: 1.5 each Polyethylene Glycol (Miralax) 17 gm PO DAILY [facility] Last Admin: 10/29/17 08:25 Dose: 17 gm Potassium Chloride (Pharmacy To Dose - Potassium Replacement) 1 dose .XX ASDIRECTED [facility] Risperidone (Risperidal) 2 mg PO BID [facility] Last Admin: 10/29/17 08:26 Dose: 2 mg Senna/Docusate Sodium (Senna Plus) 1 tab PO BID PRN PRN Reason: Constipation Simvastatin (Zocor) 10 mg PO DAILY@1700 [facility] Last Admin: 10/28/17 17:05 Dose: 10 mg Sodium Chloride (Saline Flush) 10 ml FLUSH ONETIME PRN PRN Reason: IV FLUSH Last Admin: 10/24/17 12:39 Dose: 10 ml Sodium Chloride ([place] Nasal [place]) 0 ml NASBOTH DAILY PRN PRN Reason: as directed Trospium (Sanctura) 20 mg PO BIDAC [facility] Last Admin: 10/29/17 06:10 Dose: 20 mg Venlafaxine HCl (Effexor Xr) 75 mg PO DAILY@1700 [facility] Last Admin: 10/28/17 17:05 Dose: 75 mg Venlafaxine HCl (Effexor Xr) 150 mg PO DAILY [facility] Last Admin: 10/29/17 08:26 Dose: 150 mg Discontinued Medications Azithromycin (Zithromax) 500 mg IV Q24H [facility] Bumetanide (Bumex) 0.5 mg IVPUSH ONETIME ONE Stop: 10/27/17 11:00 Last Admin: 10/27/17 19:46 Dose: Not Given Bumetanide (Bumex) 0.5 mg IVPUSH ONETIME ONE Stop: 10/27/17 14:46 Last Admin: 10/27/17 15:39 Dose: 0.5 mg Bumetanide (Bumex) 0.5 mg IVPUSH ONETIME ONE Stop: 10/28/17 08:45 Last Admin: 10/28/17 09:17 Dose: 0.5 mg Caffeine (Caffeine) 100 mg PO ONETIME ONE Stop: 10/25/17 11:01 Last Admin: 10/25/17 11:14 Dose: 100 mg Donepezil HCl (Aricept) 10 mg PO BEDTIME [facility] Last Admin: 10/24/17 23:27 Dose: 10 mg Famotidine (Pepcid) 20 mg PO DAILY [facility] Last Admin: 10/25/17 11:06 Dose: Not Given Sodium Chloride (Normal Saline) 500 mls @ 1,000 mls/hr IV .BOLUS ONE Stop: 10/24/17 11:01 Last Admin: 10/24/17 10:49 Dose: 1,000 mls/hr Sodium Chloride (Normal Saline) 250 mls @ 80 mls/hr IV ASDIRECTED [facility] Last Admin: 10/24/17 13:34 Dose: 80 mls/hr Magnesium Sulfate 2 gm/ Premix 50 mls @ 50 mls/hr IV ONETIME STA Stop: 10/24/17 12:29 Last Admin: 10/24/17 12:01 Dose: 50 mls/hr Azithromycin 500 mg/ Sodium (Chloride) 250 mls @ 250 mls/hr IV ONETIME ONE Stop: 10/24/17 20:12 Last Admin: 10/24/17 20:05 Dose: 250 mls/hr Sodium Chloride (Normal Saline) 1,000 mls @ 80 mls/hr IV ASDIRECTED [facility] Last Admin: 10/27/17 00:34 Dose: 80 mls/hr Ceftriaxone Sodium 1 gm/ (Sodium Chloride) 100 mls @ 200 mls/hr IV Q24H [facility] Last Admin: 10/25/17 11:13 Dose: 200 mls/hr Azithromycin 500 mg/ Sodium (Chloride) 250 mls @ 250 mls/hr IV Q24H [facility] Last Admin: 10/25/17 20:14 Dose: 250 mls/hr Magnesium Sulfate 2 gm/ Premix 50 mls @ 25 mls/hr IV ONETIME ONE Stop: 10/28/17 11:29 Last Admin: 10/28/17 11:05 Dose: 25 mls/hr Iopamidol (Isovue-370 (76%)) 50 ml IVPUSH ONETIME ONE Stop: 10/24/17 11:03 Last Admin: 10/24/17 12:38 Dose: 50 ml Iopamidol (Isovue-370 (76%)) 100 ml IVPUSH ONETIME ONE Stop: 10/24/17 11:03 Last Admin: 10/24/17 12:38 Dose: 50 ml Levothyroxine Sodium (Levothyroxine) 25 mcg PO ACBREAKFAST [facility] Last Admin: 10/25/17 11:05 Dose: Not Given Magnesium Oxide (Magnesium Oxide) 400 mg PO ONETIME ONE Stop: 10/24/17 18:01 Last Admin: 10/24/17 20:06 Dose: 400 mg Magnesium Oxide (Magnesium Oxide) 800 mg PO ONETIME ONE Stop: 10/27/17 09:31 Last Admin: 10/27/17 10:34 Dose: 800 mg Divalproex 250 Mg Er (Tab Own Med) 2 tab PO BEDTIME [facility] Last Admin: 10/24/17 23:55 Dose: 2 tab Lactases 3000 Fcc (Units Own Med) 0 tab PO BID [facility] Last Admin: 10/25/17 11:05 Dose: Not Given Risperidone 2 Mg (Own Med) 0 mg PO BID [facility] Last Admin: 10/25/17 11:05 Dose: Not Given Vesicare 10 Mg Own (Med) 0 mg PO BEDTIME [facility] Last Admin: 10/24/17 23:31 Dose: 10 mg Non-Formulary Medication (Acetaminophen [Tylenol]) 325 mg PO Q4H PRN PRN Reason: Pain Non-Formulary Medication (Non-Formulary Medication [Nf Drug]) 2 - 4 tsp PO ASDIRECTED PRN PRN Reason: Indigestion Pantoprazole Sodium (Protonix) 40 mg PO DAILY [facility] Last Admin: 10/25/17 11:06 Dose: Not Given Pantoprazole Sodium (Protonix) 40 mg PO DAILY [facility] Last Admin: 10/25/17 11:01 Dose: 40 mg Peg 3350 Electrolyte Powder For Oral Solution 0 each PO DAILY [facility] Last Admin: 10/25/17 11:05 Dose: Not Given Sitagliptin 50 Mg ( (Januvia)) 0 each PO DAILY [facility] Last Admin: 10/25/17 11:06 Dose: Not Given Risperidone 2 Mg (Own Med) 0 each PO BID [facility] Polyethylene Glycol (Miralax) 17 gm PO DAILY PRN PRN Reason: Constipation Simvastatin (Zocor) 10 mg PO DAILY@1700 [facility] Last Admin: 10/24/17 23:31 Dose: 10 mg Venlafaxine HCl (Effexor Xr) 75 mg PO DAILY@1700 [facility] Last Admin: 10/24/17 23:30 Dose: 75 mg - Exam Quality Assessment: Reports: DVT Prophylaxis General: Reports: Alert, Oriented, Cooperative, No Acute Distress HEENT: Reports: Pupils Equal, Pupils Reactive, EOMI, Mucous Membr. Moist/[place] Neck: Reports: Supple, Trachea Midline, No JVD Lungs: Reports: Normal Respiratory Effort, Decreased Breath Sounds, Wheezing Cardiovascular: Reports: Regular Rate, Regular Rhythm GI/Abdominal Exam: Normal Bowel Sounds, Soft, Non-Tender, No Organomegaly, No Distention, No Abnormal Bruit, No Mass, Pelvis Stable (Male) Exam: Deferred Rectal (Males) Exam: Deferred Back Exam: Reports: Normal Inspection, Full Range of Motion Extremities: Normal Inspection, Normal Range of Motion, Non-Tender, No Pedal Edema, Normal Capillary Refill Skin: Reports: Warm, Dry, Intact Neurological: Reports: No New Focal Deficit Psy/Mental Status: Reports: Alert, Normal Affect, Normal Mood
[2017-10-29 09:07] VITALS: BP 127/77
== END 2017-10-29 11:04 | disposition other institution (70) | DRG 192 ==
LOC: JD.ED 09:17 → JD.MS 15:56 → OBSVTOIN 10-25 10:00 → JD.MS 10-25 14:33
PROVIDERS: ADMIT Internal Medicine; ATTEND Internal Medicine
PROC: 039Y3ZZ Drainage of Upper Artery, Percutaneous Approach (ICD-10-PCS; principal; 2017-10-24)
DX: R53.1 Weakness (principal); J44.0 Chronic obstructive pulmonary disease with (acute) lower respiratory infection; J20.6 Acute bronchitis due to rhinovirus; J20.8 Acute bronchitis due to other specified organisms; B97.10 Unspecified enterovirus as the cause of diseases classified elsewhere; E83.42 Hypomagnesemia; R05 Cough; R41.82 Altered mental status, unspecified; I25.10 Atherosclerotic heart disease of native coronary artery without angina pectoris; I50.9 Heart failure, unspecified; E78.00 Pure hypercholesterolemia, unspecified; R32 Unspecified urinary incontinence; E11.9 Type 2 diabetes mellitus without complications; D64.9 Anemia, unspecified; I11.0 Hypertensive heart disease with heart failure; R09.02 Hypoxemia; R06.03 Acute respiratory distress; F20.9 Schizophrenia, unspecified; G30.9 Alzheimer's disease, unspecified; F02.80 Dementia in other diseases classified elsewhere, unspecified severity, without behavioral disturbance, psychotic disturbance, mood disturbance, and anxiety; J84.10 Pulmonary fibrosis, unspecified; R74.8 Abnormal levels of other serum enzymes; R79.1 Abnormal coagulation profile; R94.31 Abnormal electrocardiogram [ECG] [EKG]; M54.5 Low back pain; G89.29 Other chronic pain; J30.9 Allergic rhinitis, unspecified; R26.9 Unspecified abnormalities of gait and mobility; I25.2 Old myocardial infarction; Z95.1 Presence of aortocoronary bypass graft; Z79.899 Other long term (current) drug therapy; Z87.891 Personal history of nicotine dependence; Z66 Do not resuscitate; Z79.84 Long term (current) use of oral hypoglycemic drugs
CPT/HCPCS: 36415; 36600; 71045; 71045-26; 71275; 71275-26; 80048; 80061; 81001; 82306; 82553; 82803; 82962; 83605; 83735; 83880; 84439; 84443; 84484; 85007; 85025; 85027; 85379; 85610; 85730; 86140; 86738; 87040; 87486; 87581; 87633; 87641; 87798; 87899; 92610-GN; 93005; 94640; 94760; 94761; 96361; 96365; 97110-GP; 97116-GP; 97162-GP; 97167-GO; 97530-GO; 97530-GP; 99285-25; A9270-GY; G0378; J0456; J0696; J3475; J7030; J7040; J7050; Q9967

== ENCOUNTER 2018-07-02 10:41 | Emergency (ER) | payer MEDICARE, MEDICAID ==
[2018-07-02 10:51] VITALS: BP 120/88
[2018-07-02] MEDS ORDERED: Sodium Chloride 0.9% 10 ML Syringe FLUSH PRN (11:19)
[2018-07-02] MEDS ORDERED: Aspirin 81 MG Tab.Chew PO ONE (11:21)
--- NOTE | 2018-07-02 11:32 | EDM.PDOC ---
ED HPI GENERAL MEDICAL PROBLEM - General Chief Complaint: Chest Pain Stated Complaint: CHEST PAIN, ABNOR EKG Time Seen by Provider: 07/02/18 11:04 Source of Information: Reports: Patient History Limitations: Reports: No Limitations - History of Present Illness INITIAL COMMENTS - FREE TEXT/NARRATIVE: 78-year-old able resident arrives with his nursing staff for evaluation and treatment of chest pain. Patient is pleasantly confused is provides some history but history mostly obtained from his able nurse. Complained of chest pain around 0900 this morn Reports it was superior substernal. No radiation to the jaw, back or arm. Does not have any chest pain at this time. Complained of chest pain up until about 1045. No associated nausea , vomiting, diaphoresis or any shortness of breath. Nurse reports that they did check his blood pressure and up issues or irregular heartbeat. Over the last 2 weeks he has been more confused and less energy than normal normally able to walk on his own and over the last week has been walking sl, has been unsteady and has been using a walker. No vomiting, cough or diarrhea. Has a little bit of a cough with eating but nothing significantly worse than normal. Patient is a type II diabetic. Sugars are checked multiple times throughout the dentures have been running low 80s to 140s. Review patient's records he does have a left bundle branch block. Also chronically has an elevated troponin. Para patient has a significant cardiac history including heart failure, open heart bypass 2. Primary care providers Dr. Sinha. - Related Data Allergies Allergy/AdvReac Type Severity Reaction Status Date / Time No Known Allergies Allergy Verified 07/02/18 10:51 Home Meds: Home Meds Cholecalciferol (Vitamin D3) [Vitamin D3] 2 tab PO DAILY 04/05/16 [History] Donepezil [Aricept] 10 mg PO BEDTIME 04/05/16 [History] Famotidine 20 mg PO DAILY 04/05/16 [History] Fluticasone/Sod Chl/Sod Bicarb [Ticanase Kit] 1 spray NASBOTH BID 04/05/16 [ History] Lactase 1.5 tab PO BID 04/05/16 [History] Memantine HCl [Namenda Xr] 21 mg PO DAILY 04/05/16 [History] Multivit-Min/FA/Lycopene/Lut [Certavite Sr-Antioxidant Tab] 1 tab PO DAILY 04/05 [History] Simvastatin [Zocor] 10 mg PO BEDTIME 04/05/16 [History] SitaGLIPtin [Januvia] 50 mg PO DAILY 04/05/16 [History] Solifenacin Succinate [Vesicare] 10 mg PO 2000 04/05/16 [History] Venlafaxine HCl [Venlafaxine ER] 75 mg PO QPM 04/05/16 [History] risperiDONE 1.5 mg PO QAM 04/05/16 [History] Acyclovir [Zovirax 5% Oint] 1 dose TOP 5XDAY PRN 12/17/16 [History] Divalproex Sodium [Divalproex Sodium ER] 2 tab PO BEDTIME 12/17/16 [History] Albuterol [IJP: Albuterol] 2.5 mg INH QID PRN 12/22/16 [History] Carbamide Peroxide [Ear Drops] 5 - 10 drop EARBOTH BID PRN 12/22/16 [History] Divalproex Sodium 250 mg PO DAILY 12/22/16 [History] Mupirocin Oint [Bactroban Oint] 1 applic TOP BID PRN 12/22/16 [History] Sodium Chloride/Sodium Bicarb [[place]asa Mist Saline [place]] 1 spray NASBOTH DAILY PRN 12/22/16 [History] Acetaminophen [Tylenol] 325 mg PO Q4H PRN 10/24/17 [History] LORazepam 0.5 mg PO ASDIRECTED PRN 10/24/17 [History] Levothyroxine 12.5 mcg PO ACBREAKFAST 10/24/17 [History] Magnesium Hydroxide [Milk of Magnesia] 15 - 30 ml PO DAILY PRN 10/24/17 [History ] Non-Formulary Medication [NF Drug] 2 - 4 tsp PO ASDIRECTED PRN 10/24/17 [History ] PEG 3350/Na Sulf,Bicarb,Cl/KCl [Peg 3350 Electrolyte] 1 cap PO DAILY 10/24/17 [ History] Pantoprazole Sodium 40 mg PO DAILY 10/24/17 [History] Venlafaxine HCl [Venlafaxine ER] 150 mg PO QAM 07/02/18 [History] risperiDONE 2 mg PO QPM 07/02/18 [History] Past Medical History HEENT History: Reports: Allergic Rhinitis Other HEENT History: wears glasses Cardiovascular History: Reports: CAD, Heart Failure, High Cholesterol, [place], Other (See Below) Other Cardiovascular History: Low cardiac output, [place] 2004 Respiratory History: Reports: None, SOB Gastrointestinal History: Reports: None Genitourinary History: Reports: Urinary Incontinence DIALYSIS REGISTERED NURSE History: Reports: None Musculoskeletal History: Reports: Back Pain, Chronic Neurological History: Reports: Alzheimers Disease, Head Trauma Other Neuro History: Head injury as a child Psychiatric History: Reports: Schizophrenia Other Psychiatric History: 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 Endocrine/Metabolic History: Reports: Diabetes, Type II Hematologic History: Reports: Anemia Immunologic History: Reports: None Oncologic (Cancer) History: Reports: None Dermatologic History: Reports: None - Past Surgical History Head Surgeries/Procedures: Reports: None HEENT Surgical History: Reports: Tonsillectomy Cardiovascular Surgical History: Reports: Coronary Artery Bypass GI Surgical History: Reports: Appendectomy Neurological Surgical History: Reports: Lumbar Spine Social & Family History - Family History Family Medical History: Noncontributory - Tobacco Use Smoking Status *Q: Unknown Ever Smoked - Caffeine Use Caffeine Use: Reports: None - Recreational Drug Use Recreational Drug Use: No - Living Situation & Occupation Living situation: Reports: Single, Other (Able custodial) Occupation: Disabled ED ROS GENERAL - Review of Systems Review Of Systems: See Below Constitutional: Denies: Fever Respiratory: Reports: Cough (occassional after eating). Denies: Shortness of Breath Cardiovascular: Reports: Chest Pain (earlier, none currently) GI/Abdominal: Denies: Abdominal Pain, Vomiting ED EXAM, GENERAL - Physical Exam Exam: See Below Exam Limited By: No Limitations General Appearance: Alert, WD/WN, No Apparent Distress Respiratory/Chest: No Respiratory Distress, Lungs Clear, Normal Breath Sounds, Other (scar to the anterior chest from previous sternometry) Cardiovascular: Normal Peripheral Pulses, Regular Rate, Rhythm, No Rub EKG INTERPRETATION EKG Date: 07/02/18 Time: 10:49 Rhythm: NSR Rate (Beats/Min): 69 Webster: Normal P-Wave: Present QRS: LBBB ST-T: Normal QT: Normal Comparison: No Change EKG Interpretation Comments: NSR at 68 bpm. LBBB. No significant change from previous EKG. Reviewed by myself and Dr. Lewis. Course - Vital Signs Last Recorded V/S: Last Vital Signs Temp 98.1 F 07/02/18 10:46 Pulse 76 07/02/18 10:46 Resp 13 07/02/18 10:46 BP 120/88 07/02/18 10:46 Pulse Ox 96 07/02/18 10:46 - Orders/Labs/Meds Orders: Active Orders 24 hr Category Date Time Status Cardiac Monitoring [RC] . DIRECTED Care 07/02/18 11:19 Active EKG Documentation Completion [RC] ASDIRECTED Care 07/02/18 11:20 Active Peripheral IV Care [RC] . DIRECTED Care 07/02/18 11:19 Active Chest 1V Frontal [CR] Stat Exams 07/02/18 11:19 Taken Peripheral IV Insertion Adult [OM.PC] Routine Oth 07/02/18 11:18 Ordered EKG 12 Lead [EK] Stat Ther 07/02/18 11:19 Ordered Labs: Laboratory Tests 07/02/18 07/02/18 07/02/18 Range/Units 10:55 10:55 11:35 WBC 4.14 L (4.23-9.07) K/mm3 RBC 4.57 L (4.63-6.08) M/mm3 Hgb 15.3 (13.7-17.5) gm/L Hct 45.8 (40.1-51.0) % MCV 100.2 H (79.0-92.2) fl MCH 33.5 H (25.7-32.2) pg MCHC 33.4 (32.2-35.5) g/dl RDW Std Deviation 51.3 H (35.1-43.9) fL Plt Count 217 (163-337) K/mm3 MPV 11.3 (9.4-12.3) fl Neutrophils % (Manual) 65 H (40-60) % Band Neutrophils % 0 (0-10) % Lymphocytes % (Manual) 24 (20-40) % Atypical Lymphs % 0 % Monocytes % (Manual) 7 (2-10) % Eosinophils % (Manual) 1 (0.8-7.0) % Basophils % (Manual) 3 H (0.2-1.2) Platelet Estimate Adequate RBC Morph Comment Normal Sodium 135 L (136-145) mEq/L Potassium 4.5 (3.5-5.1) mEq/L Chloride 99 (98-107) mEq/L Carbon Dioxide 28 (21-32) mEq/L Anion Gap 12.5 (5-15) BUN 20 H (7-18) mg/dL Creatinine 1.2 (0.7-1.3) mg/dL Est Cr Clr Drug Dosing 41.80 mL/min Estimated GFR (MDRD) 58 (>60) mL/min BUN/Creatinine Ratio 16.7 (14-18) Glucose 105 (83-115) mg/dL Calcium 9.2 (8.5-10.1) mg/dL Magnesium 1.9 (1.8-2.4) mg/dl Total Bilirubin 0.3 (0.2-1.0) mg/dL AST 18 (15-37) U/L ALT 20 (16-63) U/L Alkaline Phosphatase 88 (46-116) U/L CK-MB (CK-2) 2.2 (0-3.6) ng/ml Troponin I 0.045 (0.00-0.056) ng/mL C-Reactive Protein 2.3 H* (<1.0) mg/dL NT-Pro-B Natriuret Pep 3126 H (0-450) pg/mL Total Protein 7.6 (6.4-8.2) g/dl Albumin 3.2 L (3.4-5.0) g/dl Globulin 4.4 gm/dL Albumin/Globulin Ratio 0.7 L (1-2) Lipase 177 (73-393) U/L TSH 3rd Generation 4.013 H (0.358-3.74) uIU/mL Urine Color (Yellow) Urine Appearance (Clear) Urine pH (5.0-8.0) Ur Specific [place] (1.005-1.030) Urine Protein (Negative) Urine Glucose (UA) (Negative) Urine Ketones (Negative) Urine Occult Blood (Negative) Urine Nitrite (Negative) Urine Bilirubin (Negative) Urine Urobilinogen (0.2-1.0) Ur Leukocyte Esterase (Negative) Urine RBC (0-5) /hpf Urine WBC (0-5) /hpf Ur Epithelial Cells (0-5) /hpf Urine Bacteria (FEW) /hpf Urine Mucus (FEW) /hpf 07/02/18 07/02/18 Range/Units 13:14 14:50 WBC (4.23-9.07) K/mm3 RBC (4.63-6.08) M/mm3 Hgb (13.7-17.5) gm/L Hct (40.1-51.0) % MCV (79.0-92.2) fl MCH (25.7-32.2) pg MCHC (32.2-35.5) g/dl RDW Std Deviation (35.1-43.9) fL Plt Count (163-337) K/mm3 MPV (9.4-12.3) fl Neutrophils % (Manual) (40-60) % Band Neutrophils % (0-10) % Lymphocytes % (Manual) (20-40) % Atypical Lymphs % % Monocytes % (Manual) (2-10) % Eosinophils % (Manual) (0.8-7.0) % Basophils % (Manual) (0.2-1.2) Platelet Estimate RBC Morph Comment Sodium (136-145) mEq/L Potassium (3.5-5.1) mEq/L Chloride (98-107) mEq/L Carbon Dioxide (21-32) mEq/L Anion Gap (5-15) BUN (7-18) mg/dL Creatinine (0.7-1.3) mg/dL Est Cr Clr Drug Dosing mL/min Estimated GFR (MDRD) (>60) mL/min BUN/Creatinine Ratio (14-18) Glucose (83-115) mg/dL Calcium (8.5-10.1) mg/dL Magnesium (1.8-2.4) mg/dl Total Bilirubin (0.2-1.0) mg/dL AST (15-37) U/L ALT (16-63) U/L Alkaline Phosphatase (46-116) U/L CK-MB (CK-2) (0-3.6) ng/ml Troponin I 0.057 H* (0.00-0.056) ng/mL C-Reactive Protein (<1.0) mg/dL NT-Pro-B Natriuret Pep (0-450) pg/mL Total Protein (6.4-8.2) g/dl Albumin (3.4-5.0) g/dl Globulin gm/dL Albumin/Globulin Ratio (1-2) Lipase (73-393) U/L TSH 3rd Generation (0.358-3.74) uIU/mL Urine Color Yellow (Yellow) Urine Appearance Clear (Clear) Urine pH 7.0 (5.0-8.0) Ur Specific [place] 1.015 (1.005-1.030) Urine Protein Negative (Negative) Urine Glucose (UA) Negative (Negative) Urine Ketones Negative (Negative) Urine Occult Blood Trace-intact H (Negative) Urine Nitrite Negative (Negative) Urine Bilirubin Negative (Negative) Urine Urobilinogen 1.0 (0.2-1.0) Ur Leukocyte Esterase Negative (Negative) Urine RBC 0-5 (0-5) /hpf Urine WBC 0-5 (0-5) /hpf Ur Epithelial Cells 0-5 (0-5) /hpf Urine Bacteria Not seen (FEW) /hpf Urine Mucus Not seen (FEW) /hpf Meds: Medications Discontinued Medications Generic Name Dose Route Start Last Admin Trade Name Freq PRN Reason Stop Dose Admin Aspirin 324 mg 07/02/18 11:21 07/02/18 11:35 Aspirin PO 07/02/18 11:22 324 mg ONETIME ONE Administration Sodium Chloride 10 ml 07/02/18 11:19 07/02/18 11:35 Saline Flush FLUSH 10 ml ASDIRECTED PRN Administration Keep Vein Open - Radiology Interpretation Free Text/Narrative:: Chest xray shows mild congestion. No acute intrathoracic process. Formal radiology read pending. Departure - Departure Time of Disposition: 14:33 Disposition: DC/Tfer to Eeg Technician [facility] 62 Condition: Fair Clinical Impression: Left bundle branch block (LBBB) on electrocardiogram, Elevated troponin, Generalized weakness, Chest pain Instructions: Weakness, [id number] Referrals: Taiwo Sinha MD [Primary Care Provider] - Forms: ED Department Discharge Additional Instructions: Follow-up with PCP this week for a recheck of his symptoms. Continue with current medications and plan of care. Please return ot the ER should your symptoms change or worsen. - My Orders Last 24 Hours: My Active Orders 07/02/18 11:18 Peripheral IV Insertion Adult [OM.PC] Routine 07/02/18 11:19 Cardiac Monitoring [RC] . DIRECTED Peripheral IV Care [RC] . DIRECTED Chest 1V Frontal [CR] Stat EKG 12 Lead [EK] Stat 07/02/18 11:20 EKG Documentation Completion [RC] ASDIRECTED - Assessment/Plan Last 24 Hours: My Active Orders 07/02/18 11:18 Peripheral IV Insertion Adult [OM.PC] Routine 07/02/18 11:19 Cardiac Monitoring [RC] . DIRECTED Peripheral IV Care [RC] . DIRECTED Chest 1V Frontal [CR] Stat EKG 12 Lead [EK] Stat 07/02/18 11:20 EKG Documentation Completion [RC] ASDIRECTED
--- NOTE | 2018-07-03 08:36 | CR ---
Chest: Portable view of the chest was obtained. Comparison: Prior chest x-ray of 10/25/17. Heart is slightly enlarged. Increased density is noted within the right perihilar region. Slight linear scarring is seen within the left mid to lower lung. Previous sternotomy is noted. Bony structures are grossly intact. Impression: 1. Increased right-sided perihilar markings most likely representing pneumonia. Differential also includes asymmetric pulmonary vascular congestion which is felt less likely. 2. Other stable findings. Diagnostic code #3
== END 2018-07-02 15:02 ==
LOC: JD.ED 10:41
DX: I44.7 Left bundle-branch block, unspecified (principal); R79.89 Other specified abnormal findings of blood chemistry; R53.1 Weakness; I50.9 Heart failure, unspecified; I25.2 Old myocardial infarction; E11.9 Type 2 diabetes mellitus without complications; Z79.899 Other long term (current) drug therapy
CPT/HCPCS: 36415; 71045; 80053; 81001; 82553; 83690; 83735; 83880; 84443; 84484; 85007; 85027; 86140; 93005; 99285; A9270

== ENCOUNTER 2020-07-15 18:36 | Emergency (ER) | payer MEDICARE, MEDICAID ==
[2020-07-15 19:40] VITALS: BP 101/68; PULSE 75
[2020-07-15] MEDS ORDERED: Sodium Chloride 0.9% 10 ML Syringe FLUSH PRN (20:04)
--- NOTE | 2020-07-15 20:26 | EDM.PDOC ---
ED HPI GENERAL MEDICAL PROBLEM - General Chief Complaint: Diabetic Complaint Stated Complaint: LETHARGIC/HIGH BLOOD SUGARS/COUGH Time Seen by Provider: 07/15/20 19:18 Source of Information: Reports: Patient, RN Notes Reviewed History Limitations: Reports: No Limitations - History of Present Illness INITIAL COMMENTS - FREE TEXT/NARRATIVE: Patient is an 80-year-old male presenting to the emergency department from [facility] with his caregiver with complaints of increased lethargy, cough, elevated blood sugars, and abdominal distention. Caregiver states that his blood sugar got as high as 300 today, however on a normal day he will get up into the 200s. They report that he coughed up some brownish-reddish phlegm at this morning but this has not occurred since that time. She reports that he has somewhat of a chronic cough and did not necessarily think that his cough is any worse than it has been, the phlegm is what concerned them. The caregiver feels that his abdomen is more distended than it normally is, however they report that he had 2 large bowel movements yesterday and a medium today. These are described as loose in consistency which is normal for him. He denies any abdominal pain or burning with urination. He did have his first dose of his Covid vaccination at the beginning of June and tolerated well. He was Covid tested 2 days ago and this was found to be negative. When asked if he is hurting anywhere, patient states no. He does ambulate with a front wheel walker and has had no difficulty with ambulation. There is no history of congestive heart failure. He does state that he feels short of breath and has been "for a long time ", however his oxygen saturation on triage was 96% on room air with a respiratory rate of 16 which is all within normal limits. They deny any nausea, vomiting, diarrhea, fever, or chills. - Related Data Allergies Allergy/AdvReac Type Severity Reaction Status Date / Time No Known Allergies Allergy Verified 07/15/20 19:28 Home Meds: Home Meds Cholecalciferol (Vitamin D3) [Vitamin D3] 2 tab PO DAILY 04/05/16 [History] Donepezil [Aricept] 10 mg PO BEDTIME 04/05/16 [History] Famotidine 20 mg PO DAILY 04/05/16 [History] Fluticasone/Sod Chl/Sod Bicarb [Ticanase Kit] 1 spray NASBOTH BID 04/05/16 [History] Lactase 1.5 tab PO BID 04/05/16 [History] Memantine HCl [Namenda Xr] 21 mg PO DAILY 04/05/16 [History] Multivit-Min/FA/Lycopen/Lutein [Certavite Senior Tablet] 1 tab PO DAILY 04/05/16 [History] Simvastatin [Zocor] 10 mg PO BEDTIME 04/05/16 [History] SitaGLIPtin [Januvia] 50 mg PO DAILY 04/05/16 [History] Solifenacin Succinate [Vesicare] 10 mg PO 2000 04/05/16 [History] Venlafaxine HCl [Venlafaxine ER] 75 mg PO QPM 04/05/16 [History] risperiDONE 1.5 mg PO QAM 04/05/16 [History] Acyclovir [Zovirax 5% Oint] 1 dose TOP 5XDAY PRN 12/17/16 [History] Divalproex Sodium [Divalproex Sodium ER] 2 tab PO BEDTIME 12/17/16 [History] Albuterol [IJP: Albuterol] 2.5 mg INH QID PRN 12/22/16 [History] Carbamide Peroxide [Ear Drops] 5 - 10 drop EARBOTH BID PRN 12/22/16 [History] Divalproex Sodium 250 mg PO DAILY 12/22/16 [History] Mupirocin Oint [Bactroban Oint] 1 applic TOP BID PRN 12/22/16 [History] Sodium Chloride/Sodium Bicarb [Nasa Mist Saline [place]] 1 spray NASBOTH DAILY PRN 12/22/16 [History] Acetaminophen [Tylenol] 325 mg PO Q4H PRN 10/24/17 [History] LORazepam 0.5 mg PO ASDIRECTED PRN 10/24/17 [History] Levothyroxine 12.5 mcg PO ACBREAKFAST 10/24/17 [History] Magnesium Hydroxide [Milk of Magnesia] 15 - 30 ml PO DAILY PRN 10/24/17 [History] Non-Formulary Medication [NF Drug] 2 - 4 tsp PO ASDIRECTED PRN 10/24/17 [History] PEG 3350/Na Sulf,Bicarb,Cl/KCl [Peg 3350 Electrolyte] 1 cap PO DAILY 10/24/17 [History] Pantoprazole Sodium 40 mg PO DAILY 10/24/17 [History] Venlafaxine HCl [Venlafaxine ER] 150 mg PO QAM 07/02/18 [History] risperiDONE 2 mg PO QPM 07/02/18 [History] Past Medical History HEENT History: Reports: Allergic Rhinitis Other HEENT History: wears glasses Cardiovascular History: Reports: CAD, Heart Failure, High Cholesterol, [place], SOB on Exertion, Other (See Below) Other Cardiovascular History: Low cardiac output, [place] 2004 Respiratory History: Reports: SOB Gastrointestinal History: Reports: GERD, Hemorrhoids Genitourinary History: Reports: Urinary Incontinence [facility]IST History: Reports: None Musculoskeletal History: Reports: Back Pain, Chronic Neurological History: Reports: Alzheimers Disease, Head Trauma Other Neuro History: Head injury as a child Psychiatric History: Reports: Schizophrenia Other Psychiatric History: [place] 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 [place] II Mild mental retardation. [place] IV psychological and environmental problems Endocrine/Metabolic History: Reports: Diabetes, Type II Hematologic History: Reports: Anemia Immunologic History: Reports: None Oncologic (Cancer) History: Reports: None Dermatologic History: Reports: None - Past Surgical History Head Surgeries/Procedures: Reports: None HEENT Surgical History: Reports: Cataract Surgery, Tonsillectomy Cardiovascular Surgical History: Reports: Coronary Artery Bypass Other Cardiovascular Surgeries/Procedures: triple bypass 2003 Respiratory Surgical History: Reports: None GI Surgical History: Reports: Appendectomy Male Surgical History: Reports: None Endocrine Surgical History: Reports: None Neurological Surgical History: Reports: Lumbar Spine Musculoskeletal Surgical History: Reports: None Dermatological Surgical History: Reports: None Social & Family History - Family History Family Medical History: No Pertinent Family History - Tobacco Use Tobacco Use Status *Q: Never Tobacco User - Caffeine Use Caffeine Use: Reports: None - Recreational Drug Use Recreational Drug Use: No - Living Situation & Occupation Living situation: Reports: Single, Other ([facility]) Occupation: Disabled ED ROS GENERAL - Review of Systems Review Of Systems: See Below Constitutional: Reports: Fatigue. Denies: Fever, Chills, Decreased Appetite HEENT: Reports: No Symptoms Respiratory: Reports: Shortness of Breath, Cough, Sputum. Denies: Wheezing Cardiovascular: Reports: No Symptoms Endocrine: Reports: No Symptoms GI/Abdominal: Reports: No Symptoms. Denies: Abdominal Pain, Diarrhea, Nausea, Vomiting : Reports: No Symptoms Musculoskeletal: Reports: No Symptoms Skin: Reports: No Symptoms Neurological: Reports: No Symptoms Psychiatric: Reports: No Symptoms Hematologic/Lymphatic: Reports: No Symptoms Immunologic: Reports: No Symptoms ED EXAM GENERAL NO PERIP PULSE - Physical Exam Exam: See Below Exam Limited By: No Limitations General Appearance: Alert, WD/WN, No Apparent Distress Respiratory/Chest: No Respiratory Distress, Lungs Clear, Normal Breath Sounds, No Accessory Muscle Use, Chest Non-Tender Cardiovascular: Normal Peripheral Pulses, Regular Rate, Rhythm, No Edema, No Gallop, No JVD, No Murmur, No Rub GI/Abdominal: Normal Bowel Sounds, Soft, Non-Tender, No Organomegaly, No Abnormal Bruit, No Mass, Distended (soft). No: Hernia Extremities: Normal Inspection, Normal Range of Motion, Non-Tender, Normal Capillary Refill, No Pedal Edema Neurological: Alert, Oriented, CN II-XII Intact, Normal Cognition, Normal Gait, Normal Reflexes, No Motor/Sensory Deficits Psychiatric: Normal Affect, Normal Mood Skin Exam: Warm, Dry, Intact, Normal Color, No Rash Course - Vital Signs Last Recorded V/S: Last Vital Signs Temp 97.5 F 07/15/20 19:30 Pulse 75 07/15/20 19:30 Resp 16 07/15/20 19:30 BP 101/68 07/15/20 19:30 Pulse Ox 96 07/15/20 19:30 - Orders/Labs/Meds Orders: Active Orders 24 hr Category Date Time Status Peripheral IV Care [RC] . DIRECTED Care 07/15/20 20:07 Active Abdomen 2V AP Flat Upright [CR] Stat Exams 07/15/20 20:09 Taken Chest 2V [CR] Stat Exams 07/15/20 20:04 Taken UA W/MICROSCOPIC [URIN] Stat Lab 07/15/20 21:38 Results Sodium Chloride 0.9% [Saline Flush] Med 07/15/20 20:04 Active 10 ml FLUSH ASDIRECTED PRN Peripheral IV Insertion Adult [OM.PC] Stat Oth 07/15/20 20:04 Ordered Medication Orders Sodium Chloride (Saline Flush) 10 ml FLUSH ASDIRECTED PRN PRN Reason: Keep Vein Open Labs: Laboratory Tests 07/15/20 07/15/20 07/15/20 Range/Units 19:25 21:00 21:00 WBC 6.27 (4.23-9.07) K/mm3 RBC 4.20 L (4.63-6.08) M/mm3 Hgb 13.8 D (13.7-17.5) gm/dl Hct 41.8 (40.1-51.0) % MCV 99.5 H (79.0-92.2) fl MCH 32.9 H (25.7-32.2) pg MCHC 33.0 (32.2-35.5) g/dl RDW Std Deviation 53.5 H (35.1-43.9) fL Plt Count 190 (163-337) K/mm3 MPV 10.5 (9.4-12.3) fl Neut % (Auto) 64.4 (34.0-67.9) % Lymph % (Auto) 15.8 L (21.8-53.1) % Gem % (Auto) 15.0 H (5.3-12.2) % Eos % (Auto) 3.7 (0.8-7.0) Baso % (Auto) 0.6 (0.1-1.2) % Neut # (Auto) 4.04 (1.78-5.38) K/mm3 Lymph # (Auto) 0.99 L (1.32-3.57) K/mm3 Gem # (Auto) 0.94 H (0.30-0.82) K/mm3 Eos # (Auto) 0.23 (0.04-0.54) K/mm3 Baso # (Auto) 0.04 (0.01-0.08) K/mm3 Sodium 136 (136-145) mEq/L Potassium 3.9 (3.5-5.1) mEq/L Chloride 100 (98-107) mEq/L Carbon Dioxide 25 (21-32) mEq/L Anion Gap 14.9 (5-15) BUN 17 (7-18) mg/dL Creatinine 1.2 (0.7-1.3) mg/dL Est Cr Clr Drug Dosing 38.86 mL/min Estimated GFR (MDRD) 58 (>60) mL/min BUN/Creatinine Ratio 14.2 (14-18) Glucose 161 H (83-115) mg/dL POC Glucose 259 H (83-110) mg/dL Calcium 8.8 (8.5-10.1) mg/dL Total Bilirubin 0.6 (0.2-1.0) mg/dL AST 20 (15-37) U/L ALT 26 (16-63) U/L Alkaline Phosphatase 117 H (46-116) U/L C-Reactive Protein 11.4 H* (<1.0) mg/dL Total Protein 6.7 (6.4-8.2) g/dl Albumin 2.8 L (3.4-5.0) g/dl Globulin 3.9 gm/dL Albumin/Globulin Ratio 0.7 L (1-2) Urine Color (Yellow) Urine Appearance (Clear) Urine pH (5.0-8.0) Ur Specific [place] (1.005-1.030) Urine Protein (Negative) Urine Glucose (UA) (Negative) Urine Ketones (Negative) Urine Occult Blood (Negative) Urine Nitrite (Negative) Urine Bilirubin (Negative) Urine Urobilinogen (0.2-1.0) Ur Leukocyte Esterase (Negative) 07/15/20 Range/Units 21:38 WBC (4.23-9.07) K/mm3 RBC (4.63-6.08) M/mm3 Hgb (13.7-17.5) gm/dl Hct (40.1-51.0) % MCV (79.0-92.2) fl MCH (25.7-32.2) pg MCHC (32.2-35.5) g/dl RDW Std Deviation (35.1-43.9) fL Plt Count (163-337) K/mm3 MPV (9.4-12.3) fl Neut % (Auto) (34.0-67.9) % Lymph % (Auto) (21.8-53.1) % Gem % (Auto) (5.3-12.2) % Eos % (Auto) (0.8-7.0) Baso % (Auto) (0.1-1.2) % Neut # (Auto) (1.78-5.38) K/mm3 Lymph # (Auto) (1.32-3.57) K/mm3 Gem # (Auto) (0.30-0.82) K/mm3 Eos # (Auto) (0.04-0.54) K/mm3 Baso # (Auto) (0.01-0.08) K/mm3 Sodium (136-145) mEq/L Potassium (3.5-5.1) mEq/L Chloride (98-107) mEq/L Carbon Dioxide (21-32) mEq/L Anion Gap (5-15) BUN (7-18) mg/dL Creatinine (0.7-1.3) mg/dL Est Cr Clr Drug Dosing mL/min Estimated GFR (MDRD) (>60) mL/min BUN/Creatinine Ratio (14-18) Glucose (83-115) mg/dL POC Glucose (83-110) mg/dL Calcium (8.5-10.1) mg/dL Total Bilirubin (0.2-1.0) mg/dL AST (15-37) U/L ALT (16-63) U/L Alkaline Phosphatase (46-116) U/L C-Reactive Protein (<1.0) mg/dL Total Protein (6.4-8.2) g/dl Albumin (3.4-5.0) g/dl Globulin gm/dL Albumin/Globulin Ratio (1-2) Urine Color Yellow (Yellow) Urine Appearance Clear (Clear) Urine pH 6.0 (5.0-8.0) Ur Specific [place] 1.020 (1.005-1.030) Urine Protein Negative (Negative) Urine Glucose (UA) Negative (Negative) Urine Ketones Negative (Negative) Urine Occult Blood Negative (Negative) Urine Nitrite Negative (Negative) Urine Bilirubin Negative (Negative) Urine Urobilinogen 1.0 (0.2-1.0) Ur Leukocyte Esterase Negative (Negative) Meds: Medications Generic Name Dose Route Start Last Admin Trade Name Freq PRN Reason Stop Dose Admin Sodium Chloride 10 ml 07/15/20 20:04 Saline Flush FLUSH ASDIRECTED PRN Keep Vein Open - Re-Assessments/Exams Free Text/Narrative Re-Assessment/Exam: Patient is an 80-year-old male presenting to the emergency department with his caregiver from [facility] with concerns regarding elevated blood sugars, lethargy, perception of abdominal distention and a productive cough. He was tested for Covid 2 days ago and this was found to be negative. His exam is grossly unremarkable. Lung sounds are clear. While abdomen is distended, it is soft and nontender throughout. Bowel sounds are active x4. Patient did have a bowel movement this morning and 2 yesterday. He has had no fever or chills. He denies any burning with urination. I have ordered blood work, urinalysis, two-view chest x-ray, and an abdomen flat and upright x-ray. 07/15/20 21:57 Hematology was grossly unremarkable with exception of glucose being elevated at 161 and CRP elevated 11.4. Urinalysis was negative for infection. WBCs are normal. Chest x-ray shows no acute abnormalities or evidence of pneumonia. Abdomen x-ray show some mildly increased stool but no other abnormalities. We will discharge the patient home with recommendations to follow-up with his primary care provider as needed or return to ER for worsening symptoms. Discharge instructions as documented. Departure - Departure Time of Disposition: 21:57 Disposition: Home, Self-Care 01 Condition: Good Clinical Impression: Blood glucose elevated, Cough - Discharge Information *PRESCRIPTION DRUG MONITORING PROGRAM REVIEWED*: No *COPY OF PRESCRIPTION DRUG MONITORING REPORT IN PATIENT MANUEL: No Instructions: Cough, Adult, [id number], Hyperglycemia, [id number] Referrals: Tiawo Sinha MD [Primary Care Provider] - Forms: ED Department Discharge Additional Instructions: Franco was seen in the emergency department this evening for evaluation with regards to higher than normal blood sugars, productive cough, and increased fatigue. Work-up included blood work, urinalysis, chest x-ray, and abdominal x- ray. Results of his work-up did show that his blood sugar was mildly elevated. He was initially to 259 upon arrival to ER. By the time blood work was drawn he had gone down to 161. Work-up was otherwise normal. There is no signs of infection. He does not have a urinary tract infection. He does have increased stool in his colon which could be contributing to the mild distention, however, he has no abdominal tenderness and his bowel sounds are active. I would recommend that he use his PRN milk of magnesia for the next 2 days to help him better move his bowels. Follow-up with his primary care provider at the next available visit for reexamination. Return to ER as needed. Sepsis Event Note (ED) - Evaluation Sepsis Screening Result: No Definite Risk - Focused Exam Vital Signs: Vital Signs Temp Pulse Resp BP Pulse Ox 07/15/20 19:30 97.5 F 75 16 101/68 96 - My Orders Last 24 Hours: My Active Orders 07/15/20 20:04 Chest 2V [CR] Stat Sodium Chloride 0.9% [Saline Flush] 10 ml FLUSH ASDIRECTED PRN Peripheral IV Insertion Adult [OM.PC] Stat 07/15/20 20:07 Peripheral IV Care [RC] . DIRECTED 07/15/20 20:09 Abdomen 2V AP Flat Upright [CR] Stat 07/15/20 21:38 UA W/MICROSCOPIC [URIN] Stat - Assessment/Plan Last 24 Hours: My Active Orders 07/15/20 20:04 Chest 2V [CR] Stat Sodium Chloride 0.9% [Saline Flush] 10 ml FLUSH ASDIRECTED PRN Peripheral IV Insertion Adult [OM.PC] Stat 07/15/20 20:07 Peripheral IV Care [RC] . DIRECTED 07/15/20 20:09 Abdomen 2V AP Flat Upright [CR] Stat 07/15/20 21:38 UA W/MICROSCOPIC [URIN] Stat
--- NOTE | 2020-07-16 08:58 | CR ---
Chest: AP and lateral views of the chest are obtained. Comparison: Prior chest x-ray of 07/02/18. Heart is enlarged. Prior sternotomy is noted. Upper mediastinum is within normal limits. Slight scarring is seen within the left midlung and right lung base. Lung markings are slightly increased but show improvement on the right side from the prior exam. Lungs otherwise are clear. Bony structures are unremarkable. Impression 1. Increased lung markings within the right chest which is improved from prior exam presumably due to incompletely improved pneumonia. 2. Stable cardiomegaly with pacemaker. 3. Mild areas of scarring. Diagnostic code #3
--- NOTE | 2020-07-16 09:01 | CR ---
Abdomen: Supine view of the abdomen was obtained. Comparison: No prior abdominal x-ray is available. Multiple surgical material within the mid-abdomen is seen. Degenerative change is scattered throughout the spine with mild scoliosis. Bowel gas pattern appears within normal limits. Calcifications are seen within the pelvis which are most likely due to phleboliths. Nothing acute is seen. Impression: 1. Nonacute findings as noted above. Diagnostic code #2
== END 2020-07-15 22:15 | disposition home or self-care (01) ==
LOC: JD.ED 18:36
DX: E11.65 Type 2 diabetes mellitus with hyperglycemia (principal); R05 Cough; I25.10 Atherosclerotic heart disease of native coronary artery without angina pectoris; E78.00 Pure hypercholesterolemia, unspecified; I50.9 Heart failure, unspecified; I25.2 Old myocardial infarction; K21.9 Gastro-esophageal reflux disease without esophagitis; G30.9 Alzheimer's disease, unspecified; F02.80 Dementia in other diseases classified elsewhere, unspecified severity, without behavioral disturbance, psychotic disturbance, mood disturbance, and anxiety; Z79.84 Long term (current) use of oral hypoglycemic drugs; Z79.899 Other long term (current) drug therapy
CPT/HCPCS: 36415; 71046; 71046-26; 74019; 74019-26; 80053; 81001; 82962; 85025; 86140; 99283; 99284-25